=== PATIENT | female | born 1940 | race Caucasian/White ===

== ENCOUNTER 2016-10-29 12:52 | Emergency (ER) | payer MEDICARE, MEDICAID ==
[~2016-10-29] VITALS: Ht 157.5 cm; Wt 77.5 kg
[~2016-10-29 12:52] MED LIST: ASPI-664 PO; CALC667C PO; CHOL2000 PO; DONE10TA7 PO; FER325 PO; FOLI-49 PO; FURO40TA4 PO; HYDR-3498 PO; LISI20TA11 PO; METO-448 PO; MULT-552 PO; PANT40TA4 PO
[2016-10-29 13:05] VITALS: Ht 157.5 cm; Wt 77.5 kg
[2016-10-29 13:52] LABS: BASOPHIL # 0.1 10^3/ul (0.0-0.1); BASOPHILS % 1.5 % (0.0-2.0); EOSINOPHILS # 0.2 10^3/ul (0.0-0.5); EOSINOPHILS % 1.9 % (0.0-7.0); HEMATOCRIT 31.5 % (37.0-47.0); HEMOGLOBIN 10.4 g/dl (12.0-16.0); LYMPHOCYTES # 1.7 10^3/ul (0.8-2.9); MEAN CORPUSCULAR HEMOGLOBIN 29.1 pg (29.0-33.0); MEAN CORPUSCULAR HGB CONC 33.1 g/dl (32.0-37.0); MEAN PLATELET VOLUME 8.4 fl (7.4-10.4); MONOCYTE # 0.7 10^3/ul (0.3-0.9); MONOCYTES % 8.3 % (0.0-11.0); NEUTROPHIL # 5.6 10^3/ul (1.6-7.5); NEUTROPHILS % 68.3 % (39.0-77.0); PLATELET COUNT 249 10^3/UL (140-440); RED BLOOD COUNT 3.58 10^6/ul (4.20-5.40); RED CELL DISTRIBUTION WIDTH 14.3 % (11.5-14.5); UNCORRECTED WBC 8.3 10^3/ul (4.8-10.8); WHITE BLOOD COUNT 8.3 10^3/ul (4.8-10.8)
[2016-10-29 13:59] LABS: ALBUMIN 4.1 g/dl (3.3-4.9)
[2016-10-29 14:00] LABS: POTASSIUM 5.5 mmol/L (3.5-5.1)
[2016-10-29 14:02] LABS: ALBUMIN/GLOBULIN RATIO 1.41; CONDITION 1; CREATININE 11.19 mg/dl (0.44-1.00)
[2016-10-29 14:03] LABS: CALCIUM 7.5 mg/dl (8.4-10.2)
--- NOTE | 2016-10-29 14:18 | RADRPT ---
PROCEDURE: CT Brain without contrast. CLINICAL INDICATION: Dizziness TECHNIQUE: Routine CT scan of the brain was performed on a high resolution multi detector scanner without intravenous contrast. One or more of the following dose reduction techniques were used: Auto mated exposure control; Adjustment of the mA and/or kV according to patient size; Use of iterative r econstruction technique. CTDI = 43 mGy. DLP = 720 mGy-cm. COMPARISON: No prior relevant examinations are available for comparison. FINDINGS: Hemorrhage: No evidence of intracranial hemorrhage. Acute ischemic changes: No evidence of acute ischemic changes. Mass effect/Midline shift: None. Parenchymal volume: Mild central parenchymal volume loss is evident. Ventricular system: Concordant with parenchymal volume. Chronic changes: Mild chronic-appearing microvascular ischemic changes of the supratentorial white m atter. Atherosclerotic calcifications of the cavernous portions of both internal carotid arteries ar e present. Extracranial soft tissues: Unremarkable. Calvarium: No fractures. Advanced degenerative changes of both temporomandibular joints. Paranasal sinuses: Visualized paranasal sinuses are clear. Mastoid air cells: Visualized mastoid air cells are clear. IMPRESSION: No acute intracranial abnormalities. Mild chronic-appearing microvascular ischemic changes of the supratentorial white matter. MRI of the brain may be useful for further evaluation. RPTAT: AADD .Clemente Macias MD, Date Time Electronically viewed and signed by .Clemente Macias MD, MD on 10/29/2016 14:17 .B/
--- NOTE | 2016-10-29 15:09 | RADRPT ---
PROCEDURE: XR Chest. CLINICAL INDICATION: Chest pain TECHNIQUE: Chest AP portable. COMPARISON: 03/02/2015 FINDINGS: Sternotomy and CABG. Right-sided single lead pacemaker. The The mediastinal structures are unremarkable. There is calcification of the thoracic aorta (consiste nt with atherosclerosis). There is mild to moderate cardiomegaly. The pulmonary vascularity is nor mal. The lung chu are unremarkable. No consolidation is identified. The pleural spaces are unr emarkable. There are senescent changes of the axial skeleton. IMPRESSION: Calcification of the thoracic aorta (consistent with atherosclerosis) Mild to moderate cardiomegaly No active intrathoracic disease RPTAT: HGDB .Zion Childress MD, Date Time Electronically viewed and signed by .Zion Childress MD, on 10/29/2016 15:09 .B/
[2016-10-29 15:30] VITALS: TEMP 98.1
[2016-10-29] MEDS ORDERED: NA POLYST SULFON 15 GM/60 ML BTL PO ONE (17:00)
[2016-10-29] MEDS ORDERED: SODI15OR8 PO (18:26)
--- NOTE | 2016-10-29 18:32 | ERD ---
ER Documentation Chief Complaint Date/Time DATE: 10/29/16 TIME: 18:28 Chief Complaint NO DIALYSIS FOR 10 DAYS AND HAS NOT EATEN FOR 4 DAYS. HPI This is a 76-year-old female who is on dialysis but is missed dialysis for the past 10 days. She was at the dialysis center on [address] was told to come here to get it at the hospital. Patient states she has some vague complaints that she has little dizziness and lack of appetite for the past 4 days. She has no chest pain shortness of breath abdominal pain diarrhea weakness fever cough back pain focal neurological complaints. She says she is mainly here because she was told to come here to get dialysis ROS All systems reviewed and are negative except as per history of present illness. Medications Home Meds Active Scripts Sodium Polystyrene Sulfonate* (Kayexalate*) 15 Gm/60 Ml Susp, 30 GM PO each day for 2 Days, ML Prov:CHAYO BRUMFIELD DO 10/29/16 Ferrous Sulfate* (Ferrous Sulfate*) 325 Mg Tabec, 325 MG PO DAILY, #30 TAB Prov:AIDA MORILLO MD 03/05/15 Pantoprazole (Protonix) 40 Mg Tabec, 40 MG PO DAILY@06 for 30 Days Prov:AIDA MORILLO MD 03/05/15 Metoprolol Tartrate* (Lopressor*) 25 Mg Tab, 12.5 MG PO BID for 30 Days, TAB Prov:AIDA MORILLO MD 03/05/15 Reported Medications Hydrocodone Bit-Acetaminophen* ([place]*) 5-325 Mg Tab, 1 TAB PO Q4H Y for PAIN, TAB 03/02/15 Donepezil* (Donepezil*) 10 Mg Tablet, 10 MG PO DAILY, TAB 03/02/15 Aspirin (Low Dose Aspirin) 81 Mg Tablet.dr, 81 MG PO DAILY 03/02/15 Calcium Acetate* (Calcium Acetate*) 667 Mg Capsule, 667 MG PO TID, CAP 03/02/15 Multivitamins* (Once Daily*) 1 Tab Tablet, 1 TAB PO DAILY, TAB 03/02/15 Cholecalciferol* (Vitamin D3*) 2,000 Unit Cap, 2000 UNIT PO DAILY, CAP 03/02/15 Lisinopril* (Lisinopril*) 20 Mg Tablet, 20 MG PO DAILY, TAB 03/02/15 Folic Acid* (Folic Acid*) 1 Mg Tablet, 1 MG PO DAILY, TAB 03/02/15 Furosemide* (Furosemide*) 40 Mg Tablet, 40 MG PO DAILY, TAB 03/02/15 Allergies Allergies: Coded Allergies: No Known Allergy (Unverified , 10/29/16) PMhx/Soc History of Surgery: Yes (CABB X 4YRS AGO) Anesthesia Reaction: No Hx Neurological Disorder: No Hx Respiratory Disorders: No Hx Cardiac Disorders: Yes (HTN) Hx Psychiatric Problems: No Hx Miscellaneous Medical Probl: Yes (ESRD, DM ) Hx Alcohol Use: No Hx Substance Use: No Hx Tobacco Use: No Smoking Status: Never smoker FmHx Family History: No coronary disease Physical Exam Vitals Vital Signs Date Time Temp Pulse Resp B/P Pulse Ox O2 Delivery O2 Flow Rate FiO2 10/29/16 15:30 98.1 65 18 123/60 98 Room Air 10/29/16 13:05 98.1 66 18 174/73 98 Physical Exam Const: Well-developed, well-nourished Head: Atraumatic, normocephalic Eyes: Normal Conjunctiva, PERRLA, EOMI, normal sclera, no nystagmus ENT: Normal External Ears, Nose and Mouth, moist mucus membranes. Neck: Full range of motion. No meningismus, no lymphadenopathy. Resp: Clear to auscultation bilaterally, no wheezing, rhonchi, rales Cardio: Regular rate and rhythm, no murmurs, S1 S2 present Abd: Soft, non tender x 4, non distended. Normal bowel sounds, no guarding or rebound, no pulsitile abdominal masses or bruits Skin: No petechiae or rashes, no ecchymosis , no maculopapular rash Back: No midline or flank tenderness Ext: No cyanosis, or edema, FROM x 4, normal inspection, neurovascularly intact x 4 Neur: Awake and alert, STR 5/5 x 4, sensation intact x 4, no focal findings, cerebellum intact Psych: Normal Mood and Affect Result Diagram: 10/29/16 1336 10/29/16 1336 Results 24 hrs Laboratory Tests Test 10/29/16 13:36 Alanine Aminotransferase (ALT/SGPT) 24IU/L Albumin 4.1g/dl Albumin/Globulin Ratio 1.41 Alkaline Phosphatase 71IU/L Anion Gap 27 Aspartate Amino Transf (AST/SGOT) 23IU/L Basophils # 0.110^3/ul Basophils % 1.5% Blood Urea Nitrogen 90mg/dl Calcium Level 7.5mg/dl Carbon Dioxide Level 25mmol/L Chloride Level 94mmol/L Creatinine 11.19mg/dl Direct Bilirubin 0.00mg/dl Eosinophils # 0.210^3/ul Eosinophils % 1.9% Globulin 2.90g/dl Glucose Level 128mg/dl Hematocrit 31.5% Hemoglobin 10.4g/dl Indirect Bilirubin 0.0mg/dl Lymphocytes # 1.710^3/ul Lymphocytes % 20.0% Mean Corpuscular Hemoglobin 29.1pg Mean Corpuscular Hemoglobin Concent 33.1g/dl Mean Corpuscular Volume 88.0fl Mean Platelet Volume 8.4fl Monocytes # 0.710^3/ul Monocytes % 8.3% Neutrophils # 5.610^3/ul Neutrophils % 68.3% Nucleated Red Blood Cells # 0.010^3/ul Nucleated Red Blood Cells % 0.0/100WBC Platelet Count 56739^3/UL Potassium Level 5.5mmol/L Red Blood Count 3.5810^6/ul Red Cell Distribution Width 14.3% Sodium Level 140mmol/L Total Bilirubin 0.0mg/dl Total Protein 7.0g/dl White Blood Count 8.310^3/ul Current Medications Medications (Trade) Dose Ordered Sig/Lety Route PRN Reason Start Time Stop Time Status Last Admin Dose Admin Sodium Polystyrene Sulfonate (Kayexalate) 30 gm ONCE ONCE PO 10/29/16 17:00 10/29/16 17:01 DC 10/29/16 17:42 Procedures/MDM EKG: Rate/Rhythm: Normal Sinus Rhythm,NL intervals QRS, ST, QT: NORMAL SC, QRS, QT] Impression: NORMAL EKG PROCEDURE: CT Brain without contrast. CLINICAL INDICATION: Dizziness TECHNIQUE: Routine CT scan of the brain was performed on a high resolution multi detector scanner without intravenous contrast. One or more of the following dose reduction techniques were used: Automated exposure control; Adjustment of the mA and/or kV according to patient size; Use of iterative reconstruction technique. CTDI = 43 mGy. DLP = 720 mGy-cm. COMPARISON: No prior relevant examinations are available for comparison. FINDINGS: Hemorrhage: No evidence of intracranial hemorrhage. Acute ischemic changes: No evidence of acute ischemic changes. Mass effect/Midline shift: None. Parenchymal volume: Mild central parenchymal volume loss is evident. Ventricular system: Concordant with parenchymal volume. Chronic changes: Mild chronic-appearing microvascular ischemic changes of the supratentorial white matter. Atherosclerotic calcifications of the cavernous portions of both internal carotid arteries are present. Extracranial soft tissues: Unremarkable. Calvarium: No fractures. Advanced degenerative changes of both temporomandibular joints. Paranasal sinuses: Visualized paranasal sinuses are clear. Mastoid air cells: Visualized mastoid air cells are clear. IMPRESSION: No acute intracranial abnormalities. Mild chronic-appearing microvascular ischemic changes of the supratentorial white matter. MRI of the brain may be useful for further evaluation. RPTAT: AADD .Clemente Macias MD, MD Date Time Electronically viewed and signed by .Clemente Macias MD, MD on 10/29/2016 14:17 .B/ CC: CHAYO BRUMFIELD DO PROCEDURE: XR Chest. CLINICAL INDICATION: Chest pain TECHNIQUE: Chest AP portable. COMPARISON: 03/02/2015 FINDINGS: Sternotomy and CABG. Right-sided single lead pacemaker. The The mediastinal structures are unremarkable. There is calcification of the thoracic aorta (consistent with atherosclerosis). There is mild to moderate cardiomegaly. The pulmonary vascularity is normal. The lung chu are unremarkable. No consolidation is identified. The pleural spaces are unremarkable. There are senescent changes of the axial skeleton. IMPRESSION: Calcification of the thoracic aorta (consistent with atherosclerosis) Mild to moderate cardiomegaly No active intrathoracic disease RPTAT: HGDB .Zion Childress MD, Date Time Electronically viewed and signed by .Zion Childress MD, on 10/29/2016 15:09 .B/ CC: CHAYO BRUMFIELD DO Patient's labs look unremarkable with some mild hyperkalemia. She is given Kayexalate. She has no evidence of pulmonary edema or volume overload she is not hypoxic. 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
[2016-10-29 19:32] VITALS: BP 163/77; PULSE 69; RESP 18
== END 2016-10-29 19:32 | disposition home or self-care (01) ==
LOC: E/R 12:52
DX: N18.6 End stage renal disease (principal); E87.5 Hyperkalemia; I12.0 Hypertensive chronic kidney disease with stage 5 chronic kidney disease or end stage renal disease; E11.9 Type 2 diabetes mellitus without complications; Z79.82 Long term (current) use of aspirin; Z99.2 Dependence on renal dialysis
CPT/HCPCS: 36415; 70450; 71010; 80053; 85025; 93005

== ENCOUNTER 2016-12-31 21:54 | Inpatient (IN) | payer MEDICARE, MEDICAID ==
[~2016-12-31] VITALS: Ht 157.5 cm; Wt 78.0 kg
[~2016-12-31 21:54] MED LIST changes: +SODI15OR8 PO
[2016-12-31] MEDS ORDERED: ASPIRIN 325 MG TAB PO STA (22:13)
[2016-12-31 22:36] LABS: ADD SCAN DIFF NO
[2016-12-31 22:39] LABS: BASOPHIL # 0.1 10^3/ul (0.0-0.1); BASOPHILS % 1.2 % (0.0-2.0); EOSINOPHILS # 0.2 10^3/ul (0.0-0.5); HEMATOCRIT 34.3 % (37.0-47.0); HEMOGLOBIN 11.3 g/dl (12.0-16.0); LYMPHOCYTES # 1.3 10^3/ul (0.8-2.9); LYMPHOCYTES % 17.6 % (15.0-51.0); MEAN CORPUSCULAR HEMOGLOBIN 28.3 pg (29.0-33.0); MEAN CORPUSCULAR HGB CONC 32.9 g/dl (32.0-37.0); MEAN CORPUSCULAR VOLUME 85.8 fl (82.0-101.0); MEAN PLATELET VOLUME 10.2 fl (7.4-10.4); MONOCYTE # 0.6 10^3/ul (0.3-0.9); MONOCYTES % 8.3 % (0.0-11.0); NEUTROPHIL # 5.2 10^3/ul (1.6-7.5); NEUTROPHILS % 69.5 % (39.0-77.0); PLATELET COUNT 207 10^3/UL (140-415); RED CELL DISTRIBUTION WIDTH 14.4 % (11.5-14.5); WHITE BLOOD COUNT 7.6 10^3/ul (4.8-10.8)
[2016-12-31 22:48] LABS: CHLORIDE 93 mmol/L (97-110); POTASSIUM 5.8 mmol/L (3.5-5.1); SODIUM 133 mmol/L (135-144)
[2016-12-31 22:50] LABS: INR 1.28; PROTIME 16.1 Sec (12.2-14.2); PT RATIO 1.3
[2016-12-31 22:51] LABS: ANION GAP 22 (8-16); BLOOD UREA NITROGEN 58 mg/dl (7-20); CALCIUM 7.8 mg/dl (8.4-10.2); CARBON DIOXIDE 24 mmol/L (21-31); CREATININE 8.66 mg/dl (0.44-1.00); GLUCOSE 148 mg/dl (70-220)
[2016-12-31] MEDS ORDERED: NITROGLYCERIN (SL) 0.4 MG TAB SL ONE (23:00)
[2016-12-31 23:01] LABS: B-TYPE NATRIURETIC PEPTIDE 15900 PG/ML (0-125)
[2016-12-31 23:06] LABS: TROPONIN-I < 0.012 ng/ml (0.00-0.12)
[2016-12-31] MEDS ORDERED: morphine 4 MG/ML VIAL IV STA (23:16)
--- NOTE | 2016-12-31 23:25 | RADRPT ---
PROCEDURE: XR Chest. CLINICAL INDICATION: Chest pain. TECHNIQUE: Single frontal view of the chest was obtained COMPARISON: Chest dated 10/29/2016. FINDINGS: Right anterior chest wall single chamber cardiac pacer. Lead tip overlies the expected location of t he right ventricle. Cardiomegaly. Atherosclerotic calcifications in the thoracic aorta. Mild patch y air space disease with small right pleural effusion There is no pneumothorax. IMPRESSION: Cardiomegaly with mild failure and small right pleural effusion. RPTAT: [facility] David Benson Physician Date Time Electronically viewed and signed by David Benson Physician on 12/31/2016 23:24 RS/
[2016-12-31] MEDS ORDERED: NACL 0.9% 3 ML SYG IV SCH (23:30)
[2016-12-31] MEDS ORDERED: morphine 2 MG INJ IV PRN (23:30)
[2016-12-31] MEDS ORDERED: FAMOTIDINE 20 MG INJ IV ONE (23:30)
[2016-12-31] MEDS ORDERED: HYDROCODONE/APAP (5/325) TAB PO PRN (23:30)
[2016-12-31] MEDS ORDERED: ZOLPIDEM 5 MG TAB PO PRN (23:30)
[2016-12-31] MEDS ORDERED: ACETAMINOPHEN 325 MG TAB PO PRN ×2 (23:30)
[2016-12-31] MEDS ORDERED: ONDANSETRON 4 MG INJ IV PRN ×2 (23:30)
[2016-12-31] MEDS ORDERED: NITROGLYCERIN (SL) 0.4 MG TAB SL PRN (23:30)
--- NOTE | 2016-12-31 23:33 | ERA ---
ER Documentation Chief Complaint Date/Time DATE: 12/31/16 TIME: 23:25 Chief Complaint CP with Dann cardia on EKG HPI This 76-year-old female presents the ER with left-sided chest pain just below the left breast described as a pressure-like pain. It is associated with shortness of breath. She has had this pain for the last few hours. She does have a history of hypertension, diabetes, coronary artery disease. She denies any fever chills or cough currently. Reviewed her EMR which shows that she had a negative Lexiscan 2 years ago. She does have an implantable ICD for severe cardiomyopathy. ROS All systems reviewed and are negative except as per history of present illness. Medications Home Meds Active Scripts Sodium Polystyrene Sulfonate* (Kayexalate*) 15 Gm/60 Ml Susp, 30 GM PO each day for 2 Days, ML Prov:CHAYO BRUMFIELD DO 10/29/16 Ferrous Sulfate* (Ferrous Sulfate*) 325 Mg Tabec, 325 MG PO DAILY, #30 TAB Prov:AIDA BRICENO MD 03/05/15 Pantoprazole (Protonix) 40 Mg Tabec, 40 MG PO DAILY@06 for 30 Days Prov:AIDA BRICNEO MD 03/05/15 Metoprolol Tartrate* (Lopressor*) 25 Mg Tab, 12.5 MG PO BID for 30 Days, TAB Prov:AIDA BRICENO MD 03/05/15 Reported Medications Hydrocodone Bit-Acetaminophen* ([place]*) 5-325 Mg Tab, 1 TAB PO Q4H Y for PAIN, TAB 03/02/15 Donepezil* (Donepezil*) 10 Mg Tablet, 10 MG PO DAILY, TAB 03/02/15 Aspirin (Low Dose Aspirin) 81 Mg Tablet.dr, 81 MG PO DAILY 03/02/15 Calcium Acetate* (Calcium Acetate*) 667 Mg Capsule, 667 MG PO TID, CAP 03/02/15 Multivitamins* (Once Daily*) 1 Tab Tablet, 1 TAB PO DAILY, TAB 03/02/15 Cholecalciferol* (Vitamin D3*) 2,000 Unit Cap, 2000 UNIT PO DAILY, CAP 03/02/15 Lisinopril* (Lisinopril*) 20 Mg Tablet, 20 MG PO DAILY, TAB 03/02/15 Folic Acid* (Folic Acid*) 1 Mg Tablet, 1 MG PO DAILY, TAB 03/02/15 Furosemide* (Furosemide*) 40 Mg Tablet, 40 MG PO DAILY, TAB 03/02/15 Allergies Allergies: Coded Allergies: No Known Allergy (Unverified , 10/29/16) PMhx/Soc History of Surgery: Yes (CABB X 4YRS AGO) Anesthesia Reaction: No Hx Neurological Disorder: No Hx Respiratory Disorders: No Hx Cardiac Disorders: Yes (HTN) Hx Psychiatric Problems: No Hx Miscellaneous Medical Probl: Yes (ESRD, DM ) Hx Alcohol Use: No Hx Substance Use: No Hx Tobacco Use: No Smoking Status: Never smoker Physical Exam Vitals Vital Signs Date Time Temp Pulse Resp B/P Pulse Ox O2 Delivery O2 Flow Rate FiO2 12/31/16 22:34 Nasal Cannula 2 12/31/16 22:08 97.9 45 24 102/55 97 Physical Exam Const: [] No distress Head: Atraumatic Eyes: Normal Conjunctiva ENT: Normal External Ears, Nose and Mouth. Neck: Full range of motion..~ No meningismus. Resp: Decreased bibasilar breath sounds Cardio: Irregularly irregular bradycardia, no murmurs Abd: Soft, non tender, non distended. Normal bowel sounds Skin: No petechiae or rashes Back: No midline or flank tenderness Ext: No cyanosis, bilateral mild ankle edema. Neur: Awake and alert and oriented 3, no focal deficits Psych: Normal Mood and Affect Result Diagram: 12/31/16222412/31/162224 Results 24 hrs Laboratory Tests Test 12/31/16 22:25 Activated Partial Thromboplast Time 30.0Sec Anion Gap 22 B-Type Natriuretic Peptide 30966JM/ML Basophils # 0.110^3/ul Basophils % 1.2% Blood Urea Nitrogen 58mg/dl Calcium Level 7.8mg/dl Carbon Dioxide Level 24mmol/L Chloride Level 93mmol/L Creatinine 8.66mg/dl Eosinophils # 0.210^3/ul Eosinophils % 3.0% Glucose Level 148mg/dl Hematocrit 34.3% Hemoglobin 11.3g/dl INR International Normalized Ratio 1.28 Lymphocytes # 1.310^3/ul Lymphocytes % 17.6% Mean Corpuscular Hemoglobin 28.3pg Mean Corpuscular Hemoglobin Concent 32.9g/dl Mean Corpuscular Volume 85.8fl Mean Platelet Volume 10.2fl Monocytes # 0.610^3/ul Monocytes % 8.3% Neutrophils # 5.210^3/ul Neutrophils % 69.5% Nucleated Red Blood Cells # 0.010^3/ul Nucleated Red Blood Cells % 0.0/100WBC Platelet Count 41596^3/UL Potassium Level 5.8mmol/L Prothrombin Time 16.1Sec Prothrombin Time Ratio 1.3 Red Blood Count 4.0010^6/ul Red Cell Distribution Width 14.4% Sodium Level 133mmol/L Troponin I < 0.012ng/ml White Blood Count 7.610^3/ul Current Medications Medications (Trade) Dose Ordered Sig/Lety Route PRN Reason Start Time Stop Time Status Last Admin Dose Admin Aspirin (Aspirin) 325 mg ONCE STAT PO 12/31/16 22:13 12/31/16 22:14 DC 12/31/16 22:38 Nitroglycerin (Nitroglycerin (Sl Tab) 0.4 Mg) 1 tab ONCE ONCE SL 12/31/16 23:00 12/31/16 23:01 DC 12/31/16 22:42 Morphine Sulfate (morphine) 4 mg ONCE STAT IV 12/31/16 23:16 12/31/16 23:18 DC Famotidine (Pepcid Iv) 20 mg ONCE ONCE IV 12/31/16 23:30 12/31/16 23:31 12/31/16 23:23 Procedures/MDM 76-year-old female with chest pain, fluid overload, hyperkalemia. She was treated with an aspirin and then given nitroglycerin which only provided minimal relief for chest pain. They gave her 4 mg of morphine and 20 mg of Pepcid IV. Chest pain was remitted at that point. She had two EKGs with initial EKG showing slight T-wave inversions in the lateral leads. Repeat EKG did not show this. Troponin is negative. Do believe the patient is to be admitted for further cardiac testing and monitoring. She was given Kayexalate 30 mg p.o. as well for her elevated potassium level. Spoke with Dr. Briceno who will be admitting the patient to telemetry. EKG interpretation #1: Atrial fibrillation rate of 47, normal axis, slight T- wave inversions in lateral leads suspicious for possible ischemia, no concerning intervals. EKG interpretation #2: Atrial fibrillation versus junctional rhythm rate of 45, interval resolution of T-wave inversions in lateral leads, no other ST or T- wave changes concerning for acute ischemia, normal axis. Chest x-ray interpretation: Possible right pleural effusion visible, no obvious infiltrate, engorgement of the pulmonary vasculature, no pneumothorax, no fractures block cleaner interpretation: Persistent irregular bradycardia without P waves. No other arrhythmias Departure Diagnosis: Primary Impression: Chest pain Additional Impression: Hyperkalemia Condition: Stable SANDRA HOUSE DO Dec 31, 2016 23:33
[2017-01-01] VITALS (21 sets, daily range): BP systolic 139–198; BP diastolic 66–88; PULSE 49–83; RESP 16–20; Ht 157.5 cm; Wt 78.0 kg
[2017-01-01 05:55] LABS: ADD SCAN DIFF NO
[2017-01-01] MEDS: PANTOPRAZOLE (EC) 40 MG TAB PO SCH (06:00)
[2017-01-01 06:03] LABS: BASOPHIL # 0.1 10^3/ul (0.0-0.1); BASOPHILS % 1.3 % (0.0-2.0); EOSINOPHILS # 0.2 10^3/ul (0.0-0.5); HEMOGLOBIN 10.8 g/dl (12.0-16.0); LYMPHOCYTES # 1.4 10^3/ul (0.8-2.9); LYMPHOCYTES % 14.5 % (15.0-51.0); MEAN CORPUSCULAR HEMOGLOBIN 27.9 pg (29.0-33.0); MEAN CORPUSCULAR HGB CONC 32.7 g/dl (32.0-37.0); MEAN CORPUSCULAR VOLUME 85.3 fl (82.0-101.0); MEAN PLATELET VOLUME 10.4 fl (7.4-10.4); MONOCYTE # 0.6 10^3/ul (0.3-0.9); MONOCYTES % 6.4 % (0.0-11.0); NEUTROPHILS % 75.4 % (39.0-77.0); PLATELET COUNT 234 10^3/UL (140-415); RED BLOOD COUNT 3.87 10^6/ul (4.20-5.40); RED CELL DISTRIBUTION WIDTH 14.4 % (11.5-14.5); WHITE BLOOD COUNT 9.3 10^3/ul (4.8-10.8)
[2017-01-01 06:16] LABS: ALBUMIN 3.5 g/dl (3.3-4.9)
[2017-01-01 06:19] LABS: ALBUMIN/GLOBULIN RATIO 1.4; CREATININE 9.29 mg/dl (0.44-1.00)
[2017-01-01 06:20] LABS: CALCIUM 8.2 mg/dl (8.4-10.2); CHOL/HDL RATIO 2.3 RATIO
[2017-01-01 06:27] LABS: CK-MB 0.31 ng/ml (0.0-2.4); CREATINE KINASE 100 IU/L (23-200)
[2017-01-01 06:34] LABS: POTASSIUM 7.1 mmol/L (3.5-5.1)
[2017-01-01 06:50] LABS: TROPONIN-I < 0.012 ng/ml (0.00-0.12)
[2017-01-01] MEDS ORDERED: NA POLYST SULFON 15 GM/60 ML BTL PO ONE ×2 (07:00)
[2017-01-01] MEDS ORDERED: INSULIN ASPART [NOVOLOG] 3 ML PEN IV ONE (07:00)
[2017-01-01] MEDS ORDERED: DEXTROSE 50% 50 ML SYRINGE IV ONE (07:00)
[2017-01-01 07:14] LABS: THYROID STIMULATING HORMONE 0.967 MIU/L (0.465-4.680)
[2017-01-01] MEDS ORDERED: GLUCAGON 1 MG INJ IM PRN (08:00)
[2017-01-01] MEDS ORDERED: DEXTROSE 50% 50 ML SYRINGE IV PRN ×2 (08:00)
[2017-01-01] MEDS ORDERED: GLUCOSE GEL 15 GRAM TUBE BUCCAL PRN (08:00)
[2017-01-01] MEDS ORDERED: GLUCOSE GEL 15 GRAM TUBE PO PRN ×2 (08:00)
[2017-01-01] MEDS ORDERED: INSULIN REGULAR, HUMAN 100 UNIT/1 ML 3ML VIAL IV ONE (08:00)
[2017-01-01] MEDS: INSULIN ASPART [NOVOLOG] 3 ML PEN SC SCH ×4 (09:24→21:51)
[2017-01-01] MEDS: CALCIUM ACETATE 667 MG CAP PO SCH ×3 (09:25→21:45)
[2017-01-01] MEDS: MULTIVITAMINS THERAPEUTIC TAB PO SCH (09:26)
[2017-01-01] MEDS: FOLIC ACID 1 MG TAB PO SCH (09:26)
[2017-01-01] MEDS: DONEPEZIL 10 MG TAB PO SCH (09:26)
[2017-01-01] MEDS: ASPIRIN 81 MG TAB PO SCH (09:26)
[2017-01-01] MEDS: CHOLECALCIFEROL 2,000 UNIT CAP PO SCH (09:26)
[2017-01-01] MEDS: METOPROLOL 25 MG TAB PO SCH ×2 (09:27→21:45)
[2017-01-01] MEDS: HEPARIN 5,000 UNIT/0.5 ML SYG SC SCH ×2 (09:33→21:47)
[2017-01-01 12:11] LABS: CREATINE KINASE 111 IU/L (23-200)
[2017-01-01 12:21] LABS: CK-MB 0.43 ng/ml (0.0-2.4)
[2017-01-01 13:30] LABS: TROPONIN-I < 0.012 ng/ml (0.00-0.12)
--- NOTE | 2017-01-01 14:38 | QN ---
Documentation Comment [id number] DELILAH MOONEY MD Jan 01, 2017 14:37
--- NOTE | 2017-01-01 17:47 | RADRPT ---
PROCEDURE: Complete abdominal and retroperitoneum ultrasound. CLINICAL INDICATION: Abdominal pain TECHNIQUE: Castañeda scale and color doppler ultrasound images of the abdomen and retroperitoneum. COMPARISON: None FINDINGS: Pancreas: Visualized portions appear of normal echogenicity, no focal lesions. Liver: Morphology: Mildly enlarged measuring 17.6 cm. No definite evidence of contour nodularity. Echogenicity: Normal. Focal lesions: None. Main portal vein: Patent with hepatopetal flow. Biliary System: Mild gallbladder wall thickening is present which is nonspecific in the presence of ascites. No gallstones seen. No intrahepatic biliary dilatation. Common bile duct diameter: 5.5 mm Kidneys: Right length: 7.3 cm. Mild - moderate right cortical thinning measuring 8 - 9 mm. Left length: 8.7 cm. Mild - moderate left cortical thinning measuring 8 - 9 mm. Normal echogenicity. No hydronephrosis. No renal calculi. No focal renal lesions. Spleen: Normal in size, no focal lesions. Mild - moderate perihepatic ascites is present. Bilateral pleural effusions are partially visualized . IMPRESSION: Liver is mildly enlarged but without other abnormalities. There is no evidence of contour nodularit y or coarsening of the hepatic echotexture to suggest sonographic changes of cirrhosis. Mild - moderate perihepatic ascites and bilateral pleural effusions are present. Mild gallbladder wall thickening is nonspecific in the presence of ascites. No gallstones are seen. If clinical concern for cholecystitis HIDA scan can be obtained for further evaluation. Mild atrophic changes of both kidneys without hydronephrosis. RPTAT: AADD .Clemente Macias MD, Date Time Electronically viewed and signed by .Clemente Macias MD, on 01/01/2017 17:46 .B/
--- NOTE | 2017-01-01 17:53 | HP ---
DATE OF ADMISSION: 12/31/2016 REASON FOR ADMISSION: 1. Chest pain. 2. Hyperkalemia. 3. Congestive heart failure exacerbation. 4. Patient missed her dialysis recently. HISTORY OF PRESENT ILLNESS: The patient is an unfortunate 76-year-old female known to me f rom previous hospitalization back in February of 2015. The patient has a history of end-stage renal dise ase, on dialysis twice a day on Monday and Monday. Also, history of hypertension, cardiomyopathy, c ongestive heart failure, status post AICD placement, diabetes mellitus, depression, diastolic cardio vascular disease, dyslipidemia, status post open heart surgery, CABG, 4-vessel disease in 2012, who stated that she did not feel so well on Monday when she had diarrhea and abdominal pain, so she did not go to her dialysis session. Now presented to the ER complaining of shortness of breath, chest d iscomfort. In the ER, patient was evaluated. Potassium was elevated at 5.8. BUN and creatinine of 58/8.66 BNP was high at 15,900. Troponin was negative. It was decided to admit the patient for fu rther care. The patient is likely in slightly fluid overload state. The patient missed her dialysi s, likely contributed to her chest pain. The patient follows up with Dr. Fuller on an outpatient b asis, and she actually is planned to undergo multiple diagnostic testing in the near future, per pat iealek. The patient also states that in the past month she has been experiencing intermittent episode s of midepigastric pain and sometimes she has a problem swallowing, she says food gets stuck and she has discomfort in the esophagus and the mid chest. Otherwise, currently feeling better. She is cu rrently chest pain free. She states she wants to go home, and she prefers all her tests to be done on an outpatient basis. The patient is admitted for further care. She denies any fever or chills. Denies any weakness or numbness. PAST MEDICAL HISTORY: Includes end-stage renal disease, cardiomyopathy, status post AICD placement, status post CABG, hypertension, dyslipidemia, previous history of diabetes mellitus, anxiety disord er. PAST SURGICAL HISTORY: Appendectomy, multiple AV fistulas, surgery in the left upper extremity, Damir nton catheter. SOCIAL HISTORY: She stopped tobacco, she stopped 30 years ago, but smoked heavily. Alcohol abuse: Stopped 30 years ago, but ank a lot. IVDA: Denies. FAMILY HISTORY: Mother from heart related problems. Father: Multiorgan failure in the hospit al. ALLERGIES: NO KNOWN DRUG ALLERGIES. SHE IS ALLERGIC TO TAPE. Dialysis every Monday and Monday. MEDICATIONS: Include the followin. Aricept 10 mg daily. 2. Ferrous sulfate 325 mg daily. 3. Lisinopril mg daily. 4. Metoprolol 12.5 b.i.d. 5. Aspirin 81 mg daily. 6. [place] 5/325 q.4 p.r.n. 7. Calcium acetate 667 mg t.i.d. 8. Lasix 40 mg daily. 9. Kayexalate 30 mg every other day. 10. Protonix 40 mg daily. 11. Vitamin D3 2000 daily. 12. Folic acid 1 mg daily. 13. Multivitamin 1 tablet daily. PHYSICAL EXAMINATION: VITAL SIGNS: Temperature is 97.4, afebrile. Pulse 77, respirations 18, blood pressure 139/68, satu ration is 95% on room air. GENERAL: No acute distress. The patient is pale. HEENT: Dry mucous membranes. CARDIOVASCULAR: S1 and S2. LUNGS: Decreased bilaterally. ABDOMEN: Soft, nontender. EXTREMITIES: +1 edema of the lower extremities, trace edema upper extremities. LABORATORY DATA: White count is 9.3, hemoglobin 10.8, hematocrit 33, platelet count 234,000, neutro phils 75%, lymphocytes 16%. Chemistry: Sodium is 135, potassium 7.1, chloride 96, bicarbonate 20, BUN is 62, creatinine 9.29, glucose of 145. Hemoglobin A1c 7.3. Last glucose level 127. Serial tr oponin is negative. B12 greater than 1000. Cholesterol is 90, LDL is 29. Triglycerides are 108. TSH is 0.967. INR is 1.28. IMAGING TESTS: Chest x-ray shows cardiomegaly with mild failure and small right pleural effusion. EKG: One EKG shows junctional rhythm, septal infarct, age undetermined. ST-T abnormality, consider lateral ischemia. Repeat EKG shows questionable atrial fibrillation with slow ventricular rate, septal infarct, age un determined, at 47 beats per minute. ASSESSMENT AND PLAN: This is a 76-year-old cholestatic female with history of coronary artery disea se, diabetes mellitus, hypertension, and end-stage renal disease, who presents with chest pain. She missed her dialysis. Also with congestive heart failure exacerbation and severe hyperkalemia. 1. Respiratory. The patient with shortness of breath and chest pain, likely from fluid overload st ate. The patient is currently being dialyzed for fluid removal. O2 support will be provided. 2. Cardiovascular. The patient with congestive heart failure exacerbation. Again, fluid removal w ith dialysis to be done today. Patient may need another set of dialysis tomorrow. 3. The patient to continue cardiac medication, including aspirin, heparin for deep venous thrombosi s prophylaxis, Lopressor. PRN blood pressure medications will be provided per nursing request. Car diology will be consulted and we will repeat a 2D echocardiogram to evaluate current ejection fracti on. Serial troponins will be obtained to rule out acute coronary syndrome. So far actually all tro ponins are negative. Again, likely chest pain is secondary to fluid overload state. 4. Epigastric pain. Will definitely need to see a gastroenterology specialist and possibly an EGD, as patient says she has problems swallowing. The patient will be placed on Protonix for now. If p atient will allow, we will consult gastroenterology, otherwise outpatient followup. May consider a baseline ultrasound of the abdomen to rule out any other pathology. 5. Old records were reviewed. Carotid ultrasound done in 02/2015, at that time shows mild atherosc lerotic plaque without evidence of significant stenosis. In addition, a stress test at that time sh owed resting myocardial perfusion images with no evidence of perfusion defects. EF at that time was 63%. Again, all records were reviewed. 6. Anemia, likely anemia of chronic disease secondary to chronic kidney disease. 7. Hyperkalemia and end-stage renal disease. The patient is being dialyzed today, status post [place]idhi xalate, insulin, and D50. Appreciate Dr. Rivas's involvement. Monitor all electrolytes tomorrow. 8. Compliance with dialysis encouraged. 9. Diabetes mellitus. Check Accu-Chek q.a.c. and at nighttime. May discharge on , as hemoglo bin A1c is 7.3. We will follow. Dictated By: AIDA PARRY/KIM Conf#: [id number] DID#: [id number]
--- NOTE | 2017-01-01 18:43 | CONS ---
DATE OF ADMISSION: 12/31/2016 DATE OF CONSULTATION: TYPE OF CONSULTATION: Nephrology consultation. Thank you, Dr. Bradley Briceno, for kindly asking me to see this patient in nephrology consultation. HISTORY OF PRESENT ILLNESS: The patient is well known to me with history of ESRD, history of cardiomyopathy, history of AICD device, history of coronary artery bypass graft, history of anemia, history of diabetes mellitus, history of congestive heart failure history of hypertension, history of noncompliance with regimen, presented with short of breath and has atrial fibrillation with bradycardia. The patient also has hyperkalemia, is getting dialysis, and is being admitted for further management. PAST MEDICAL HISTORY: Please review the old chart, is positive for ESRD, hypertension, CHF, CABG, cardiac arrhythmia, and _ with fistula placement. ALLERGY HISTORY: NEGATIVE. FAMILY HISTORY: Negative. SOCIAL HISTORY: Negative. MEDICATION HISTORY: The patient is on: 1. [place]. 2. Aspirin. 3. PhosLo. 4. Vitamin D3. 5. Aricept. 6. asa 7. Folic acid. 8. Lasix. 9. Lisinopril. 10. Metoprolol. 11. Multiple vitamin. 12. Protonix. 13. Carafate. REVIEW OF SYSTEMS: HEENT: Unremarkable. RESPIRATORY: Short of breath. CARDIOVASCULAR: No chest pain, no palpitation. ABDOMEN: Unremarkable. EXTREMITIES: Unremarkable. PHYSICAL EXAMINATION: GENERAL: The patient is awake and alert. VITAL SIGNS: Pulse 72, blood pressure 139/68. HEAD: Atraumatic, normocephalic. Pupils equal, reactive to light. NECK: Supple. No JVD. LUNGS: Clear. CARDIOVASCULAR: S1, S2 is normal. Irregular. ABDOMEN: Soft, nontender. Bowel sounds positive. No palpable mass or hepatosplenomegaly. No guarding, rebound tenderness. EXTREMITIES: There is no cyanosis, clubbing, or edema. CENTRAL NERVOUS SYSTEM: The patient is awake, alert with no focal deficit. LABORATORY DATA: Hematocrit 33, sodium 135, potassium 7.1, BUN 62, creatinine 9.29, B12 more than 1000. IMPRESSION: 1. The patient has hyperkalemia. 2. End-stage renal disease. 3. The patient has congestive heart failure. 4. Hypertension. 5. Anemia. 6. Atrial fibrillation. 7. Noncompliance with dialysis regimen. PLAN: To continue hemodialysis, renal diet. Laboratory data will be followed. Other recommendations per Dr. Briceno. Thank you, Dr. Bradley Briceno, for kindly asking me to see this patient in nephrology consultation. Dictated By: DELILAH MOONEY MD BS/NTS Conf#: [id number] DID#: [id number] MTDD
[2017-01-02] VITALS (17 sets, daily range): BP systolic 123–208; BP diastolic 56–80; PULSE 63–75; RESP 18–20
[2017-01-02] MEDS ORDERED: ACCU-CHEK XX SCH (02:00)
[2017-01-02] MEDS: PANTOPRAZOLE (EC) 40 MG TAB PO SCH (06:00)
[2017-01-02 07:25] LABS: ADD SCAN DIFF NO
[2017-01-02 07:30] LABS: BASOPHIL # 0.1 10^3/ul (0.0-0.1); BASOPHILS % 0.9 % (0.0-2.0); EOSINOPHILS # 0.3 10^3/ul (0.0-0.5); EOSINOPHILS % 4.3 % (0.0-7.0); HEMATOCRIT 32.3 % (37.0-47.0); HEMOGLOBIN 10.6 g/dl (12.0-16.0); LYMPHOCYTES # 1.8 10^3/ul (0.8-2.9); LYMPHOCYTES % 23.3 % (15.0-51.0); MEAN CORPUSCULAR HEMOGLOBIN 28.3 pg (29.0-33.0); MEAN CORPUSCULAR HGB CONC 32.8 g/dl (32.0-37.0); MEAN CORPUSCULAR VOLUME 86.1 fl (82.0-101.0); MEAN PLATELET VOLUME 10.4 fl (7.4-10.4); MONOCYTE # 0.8 10^3/ul (0.3-0.9); MONOCYTES % 10.2 % (0.0-11.0); NEUTROPHIL # 4.7 10^3/ul (1.6-7.5); PLATELET COUNT 199 10^3/UL (140-415); RED BLOOD COUNT 3.75 10^6/ul (4.20-5.40); RED CELL DISTRIBUTION WIDTH 14.5 % (11.5-14.5); WHITE BLOOD COUNT 7.6 10^3/ul (4.8-10.8)
--- NOTE | 2017-01-02 07:34 | CONS ---
DATE OF ADMISSION: 12/31/2016 DATE OF CONSULTATION: 01/01/2017 TYPE OF CONSULTATION: Cardiology REFERRING PHYSICIAN: Dr. Briceno. REASON FOR EVALUATION: Chest pain, precordial. HISTORY OF PRESENT ILLNESS: Ms. Jean-Baptiste is a 76-year-old woman with history of hypertension, dysl ipidemia, history of cardiomyopathy, heart failure, prior history of CABG with 4 vessels in 2002, an d stress test 2 years ago, who comes to the hospital now for evaluation of chest pain. The patient said she had chest pain during dialysis, and now she is coming in for evaluation of her condition. It does not appear that she ruled in for acute myocardial infarction with her troponins negative; ho wever, she does have a history of coronary artery disease with history of moderate cardiac problems, and I think as such it would be reasonable to stratify the patient with a stress test. She says jonn oates has not had a stress test for several years. We will facilitate stress test for tomorrow. PAST MEDICAL HISTORY: 1. Hypertension. 2. Dyslipidemia. 3. End-stage renal disease. 4. Hemodialysis. 5. Cardiomyopathy. 6. History of ICD. 7. History of CABG. 8. Four-vessel disease in 2012. 9. Dyslipidemia. 10. Diabetes. 11. Anxiety. PAST SURGICAL HISTORY: Appendectomy, multiple history of surgeries on her left upper extremity, Damir nton catheter, ICD placement. SOCIAL HISTORY: The patient with history of tobacco use, but quit a long time ago. Does not drink, does not use any drugs. FAMILY HISTORY: Negative for sudden cardiac . ALLERGIES: NO KNOWN ALLERGIES EXCEPT FOR TAPE. MEDICATIONS: The patient is on: 1. Aricept 10 mg daily. 2. Iron sulfate 325 mg daily. 3. Lisinopril mg daily 4. Metoprolol 12.5 b.i.d. 5. Aspirin 81 mg daily. 6. [place]. 7. Calcium. 8. Lasix. 9. Kayexalate 10. Protonix. 11. Vitamin D. 12. Multivitamins. REVIEW OF SYSTEMS: CONSTITUTIONAL: No fevers, no chills. Chest pain as described. HEENT: No changes in vision or hearing. CARDIAC: . RESPIRATORY: No shortness of breath. GASTROINTESTINAL: No nausea, vomiting, diarrhea, constipation. GENITOURINARY: No dysuria or hematuria. Anemia of chronic disease. PSYCHIATRIC: No known history of psychiatric illness. PHYSICAL EXAMINATION: VITAL SIGNS: Temperature is 98.2, heart rate blood pressure 161/72. GENERAL: She is a well-nourished woman in no acute distress, alert and oriented x3, aware of her co ndition, speaking [place]an. HEENT: Head is normocephalic, atraumatic. Eyes anicteric. NECK: Supple. JVD 7 to 8 cm. There is no lymphadenopathy, no thyromegaly. HEART: Regular, with soft II/ systolic murmur at the apex. PMI is . There is no S3 or S4. LUNGS: Coarse at the bases. ABDOMEN: Distended, bowel sounds are present. There is no hepatosplenomegaly. GENITOURINARY: Intact. EXTREMITIES: No clubbing or cyanosis, trace edema. SKIN: Shows AV fistula on the left side. ECG read by me showed that the patient is in atrial fibrillation at the rate of 47. I do not apprec iate any pacing at this point. ASSESSMENT AND PLAN: 1. Chest pain. The patient has history of chest pain. We will continue to monitor the patient sharon sely. She will have a re-stratification with stress test, ICD versus pacemaker. Patient has a fair ly unusually placed ICD; it is on the right side. I think it would be reasonable to check the pacem jones now, given the heart rate is 47 and she is not paced so the backup rate might be set at less th an 47. 2. Shortness of breath, multifactorial. Continue CHF therapy. I will follow up with a 2-D echo. 3. End-stage renal disease. Continue hemodialysis per primary team. 4. History of coronary artery bypass graft. Patient history of CABG. We will risk stratify with a stress test now. I would like to thank Dr. Briceno for referring this patient for my evaluation. Dictated By: JOLEEN JORGE MD ML/NTS Conf#: [id number] DID#: [id number]
[2017-01-02 07:43] LABS: POTASSIUM 3.9 mmol/L (3.5-5.1)
[2017-01-02 07:46] LABS: CREATININE 5.55 mg/dl (0.44-1.00); MAGNESIUM 1.8 mg/dl (1.7-2.5); PHOSPHORUS 3.9 mg/dl (2.5-4.9)
[2017-01-02 07:47] LABS: CALCIUM 8.1 mg/dl (8.4-10.2)
[2017-01-02] MEDS: INSULIN ASPART [NOVOLOG] 3 ML PEN SC SCH ×3 (09:04→18:29)
[2017-01-02] MEDS: DONEPEZIL 10 MG TAB PO SCH (09:05)
[2017-01-02] MEDS: CHOLECALCIFEROL 2,000 UNIT CAP PO SCH (09:05)
[2017-01-02] MEDS: ASPIRIN 81 MG TAB PO SCH (09:05)
[2017-01-02] MEDS: CALCIUM ACETATE 667 MG CAP PO SCH ×2 (09:05→13:26)
[2017-01-02] MEDS: FOLIC ACID 1 MG TAB PO SCH (09:05)
[2017-01-02] MEDS: METOPROLOL 25 MG TAB PO SCH (09:06)
[2017-01-02] MEDS: MULTIVITAMINS THERAPEUTIC TAB PO SCH (09:09)
[2017-01-02] MEDS: HEPARIN 5,000 UNIT/0.5 ML SYG SC SCH (09:11)
[2017-01-02] MEDS ORDERED: REGADENOSON 0.4 MG/5 ML SYG ONE (11:38)
--- NOTE | 2017-01-02 12:22 | CONS ---
Date/Time of Note Date/Time of Note DATE: 01/02/17 TIME: 12:19 Assessment/Plan Assessment/Plan Chief Complaint/Hosp Course Imp: 1.Chest pain-negative trop x 3 2.HTN 3.cad s/p cabg 2012 4. H/O ICD Recc: -Tele -serial ecg's -Continue BB -Lexiscan stress test today Problems: Consultation Date/Type/Reason Admit Date/Time Dec 31, 2016 at 23:25 Initial Consult Date 01/01/2017 Type of Consultation: Cardiology Reason for Consultation Chest pain Referring Provider: SANDOVAL MORILLO MD Exam/Review of Systems Vital Signs Vitals Vital Signs Date Time Temp Pulse Resp B/P Pulse Ox O2 Delivery O2 Flow Rate FiO2 01/02/17 08:04 98.2 74 20 123/56 97 01/01/17 01:03 2.0 98 01/01/17 00:38 Nasal Cannula Intake and Output 01/01/17 01/01/17 01/02/17 15:00 23:00 07:00 Intake Total 300 ml 960 ml 750 ml Output Total 2300 ml 850 ml Balance -2000 ml 960 ml -100 ml Exam Review of Systems: CONSTITUTIONAL: No fevers, chills. PULMONARY: No sob CARDIOVASCULAR: intermittent chest pain GASTROINTESTINAL: No nausea/vomiting. GENITOURINARY: No hematuria/dysuria. MUSCULOSKELETAL: No myagias/arthalgias. PSYCHIATRIC: The patient denies depression. NEUROLOGIC: No weakness Constitutional: alert, oriented Psych: no complaints Eyes: nl conjunctiva ENMT: mucosa pink and moist Neck: jvd (8 cm water), supple Respiratory: clear to auscultation Cardiovascular: regular rate and rhythm Gastrointestinal: non-tender, soft Musculoskeletal: muscle tone (normal) Extremities: edema (none) Results Result Diagram: 01/02/17 0549 01/02/17 0549 Results 24 hrs Laboratory Tests Test 01/01/17 17:12 01/01/17 18:00 01/01/17 20:53 01/02/17 01:51 Bedside Glucose 205 262 H 121 Stool Occult Blood NEGATIVE Test 01/02/17 05:49 01/02/17 07:41 Anion Gap 17 #H Basophils # 0.1 Basophils % 0.9 Blood Urea Nitrogen 25 #H Calcium Level 8.1 L Carbon Dioxide Level 31 # Chloride Level 96 L Creatinine 5.55 #H Eosinophils # 0.3 Eosinophils % 4.3 Glucose Level 112 Hematocrit 32.3 L Hemoglobin 10.6 L Lymphocytes # 1.8 Lymphocytes % 23.3 Magnesium Level 1.8 Mean Corpuscular Hemoglobin 28.3 L Mean Corpuscular Hemoglobin Concent 32.8 Mean Corpuscular Volume 86.1 Mean Platelet Volume 10.4 Monocytes # 0.8 Monocytes % 10.2 Neutrophils # 4.7 Neutrophils % 61.0 Nucleated Red Blood Cells # 0.0 Nucleated Red Blood Cells % 0.0 Phosphorus Level 3.9 Platelet Count 199 Potassium Level 3.9 # Red Blood Count 3.75 L Red Cell Distribution Width 14.5 Sodium Level 140 White Blood Count 7.6 Bedside Glucose 122 Medications Medications Current Medications Ondansetron HCl (Zofran Inj) 4 mg Q6H PRN IV NAUSEA AND/OR VOMITING; Start at 23:30 Aspirin (Aspirin) 81 mg DAILY PO Last administered on 01/02/17 09:05; Admin Dose 81 MG; Start 01/01/17 at 09:00 Nitroglycerin (Nitroglycerin (Sl Tab) 0.4 Mg) 1 tab Q5M PRN SL CHEST PAIN; Start 12/31/16 at 23:30 Acetaminophen (Tylenol Tab) 650 mg Q6H PRN PO PAIN LEVEL 1-3 OR FEVER; Start at 23:30 Acetaminophen/ Hydrocodone Bitart ([place] (5/325)) 1 tab Q6H PRN PO PAIN LEVEL 4 -6; Start 12/31/16 at 23:30 Morphine Sulfate (morphine) 2 mg Q4H PRN IV PAIN LEVEL 7-10; Start 12/31/16 at 23:30 Zolpidem Tartrate (Ambien) 5 mg QHS PRN PO INSOMNIA Last administered on 22:04; Admin Dose 5 MG; Start 12/31/16 at 23:30 Pantoprazole (Protonix Tab) 40 mg DAILY@06 PO ; Start 01/01/17 at 06:00 Heparin Sodium (Porcine) (Heparin (5000 Units/0.5 ml)) 5,000 unit Q12 SC Last administered on 01/02/17 09:11; Admin Dose 5,000 UNIT; Start 01/01/17 at 09:00 Calcium Acetate (Phoslo) 667 mg TID PO Last administered on 01/02/17 09:05; Admin Dose 667 MG; Start 01/01/17 at 09:00 Cholecalciferol (Vitamin D) 2,000 unit DAILY PO Last administered on 01/02/17 09:05; Admin Dose 2,000 UNIT; Start 01/01/17 at 09:00 Donepezil HCl (Aricept) 10 mg DAILY PO Last administered on 01/02/17 09:05; Admin Dose 10 MG; Start 01/01/17 at 09:00 Folic Acid (Folic Acid) 1 mg DAILY PO Last administered on 01/02/17 09:05; Admin Dose 1 MG; Start 01/01/17 at 09:00 Metoprolol Tartrate (Lopressor) 12.5 mg BID PO Last administered on 01/02/17 09:06; Admin Dose 12.5 MG; Start 01/01/17 at 09:00 Multivitamins Therapeutic (Theragran) 1 tab DAILY PO Last administered on 09:09; Admin Dose 1 TAB; Start 01/01/17 at 09:00 Diagnostic Test (Pha) (Accucheck) 1 ea 02 XX ; Start 01/02/17 at 02:00 Miscellaneous Information 1 ea NOTE XX ; Start 01/01/17 at 08:00 Glucose (Glutose) 15 gm Q15M PRN PO DECREASED GLUCOSE; Start 01/01/17 at 08:00 Glucose (Glutose) 22.5 gm Q15M PRN PO DECREASED GLUCOSE; Start 01/01/17 at 08: 00 Dextrose (D50w Syringe) 25 ml Q15M PRN IV DECREASED GLUCOSE; Start 01/01/17 at 08:00 Dextrose (D50w Syringe) 50 ml Q15M PRN IV DECREASED GLUCOSE; Start 01/01/17 at 08:00 Glucagon (Glucagen) 1 mg Q15M PRN IM DECREASED GLUCOSE; Start 01/01/17 at 08:00 Glucose (Glutose) 15 gm Q15M PRN BUCCAL DECREASED GLUCOSE; Start 01/01/17 at 08 :00 Hydralazine HCl (Apresoline) 25 mg Q4 PRN PO SBP >165; Start 01/01/17 at 18:00 VANESA GUDINO 20, 2017 12:22
--- NOTE | 2017-01-02 14:29 | RADRPT ---
PROCEDURE: Lexiscan myocardial perfusion study CLINICAL INDICATION: 76 -year-old patient complaining of chest pain. TECHNIQUE: Lexiscan 0.4 mg intravenously separate acquisition gated myocardial perfusion SPECT usi ng Tc 99m Myoview 30.8 mCi intravenously at stress and Tc-99m Myoview, 10.8 mCi intravenously at res t was performed using the rest/stress sequence. Poststress Myoview SPECT images were obtained in th e supine position. COMPARISON: March 03, 2015. FINDINGS: Perfusion images reveal no evidence of perfusion defects. Lexiscan post stress gated SPECT images demonstrate no wall motion abnormalities. IMPRESSION: 1. Normal study with no evidence of new perfusion defects or new wall motion abnormalities. 2. The left ventricle ejection fraction at stress is 59% (prior EF was 64%). A call report was made to Dr. Fuller at 10:28 p.m. on January 02, 2017 RPTAT: HH .Khadijah Gonzales MD, MD Date Time Electronically viewed and signed by .Khadijah Gonzales MD, on 01/02/2017 14:29 .L/
--- NOTE | 2017-01-02 17:01 | CONS ---
Date/Time of Note Date/Time of Note DATE: 01/02/17 TIME: 17:00 Assessment/Plan Assessment/Plan Chief Complaint/Hosp Course IMPRESSION: 1. The patient has hyperkalemia. 2. End-stage renal disease. 3. The patient has congestive heart failure. 4. Hypertension. 5. Anemia. 6. Atrial fibrillation. 7. Noncompliance with dialysis regimen. PLAN HD Problems: Consultation Date/Type/Reason Admit Date/Time Dec 31, 2016 at 23:25 Initial Consult Date Type of Consultation: RENAL Referring Provider: SANDOVAL MORILLO MD 24 HR Interval Summary Constitutional: no complaints Exam/Review of Systems Vital Signs Vitals Vital Signs Date Time Temp Pulse Resp B/P Pulse Ox O2 Delivery O2 Flow Rate FiO2 01/02/17 16:30 69 01/02/17 16:26 98.0 20 177/75 98 01/01/17 01:03 2.0 98 01/01/17 00:38 Nasal Cannula Intake and Output 01/01/17 01/01/17 01/02/17 15:00 23:00 07:00 Intake Total 300 ml 960 ml 750 ml Output Total 2300 ml 850 ml Balance -2000 ml 960 ml -100 ml Exam Neck: supple Respiratory: clear to auscultation Cardiovascular: regular rate and rhythm Gastrointestinal: soft Musculoskeletal: nl extremities to inspection Extremities: normal pulses Results Result Diagram: 01/02/17 0549 01/02/17 0549 Results 24 hrs Laboratory Tests Test 01/01/17 17:12 01/01/17 18:00 01/01/17 20:53 01/02/17 01:51 Bedside Glucose 205 262 H 121 Stool Occult Blood NEGATIVE Test 01/02/17 05:49 01/02/17 07:41 01/02/17 13:24 Anion Gap 17 #H Basophils # 0.1 Basophils % 0.9 Blood Urea Nitrogen 25 #H Calcium Level 8.1 L Carbon Dioxide Level 31 # Chloride Level 96 L Creatinine 5.55 #H Eosinophils # 0.3 Eosinophils % 4.3 Glucose Level 112 Hematocrit 32.3 L Hemoglobin 10.6 L Lymphocytes # 1.8 Lymphocytes % 23.3 Magnesium Level 1.8 Mean Corpuscular Hemoglobin 28.3 L Mean Corpuscular Hemoglobin Concent 32.8 Mean Corpuscular Volume 86.1 Mean Platelet Volume 10.4 Monocytes # 0.8 Monocytes % 10.2 Neutrophils # 4.7 Neutrophils % 61.0 Nucleated Red Blood Cells # 0.0 Nucleated Red Blood Cells % 0.0 Phosphorus Level 3.9 Platelet Count 199 Potassium Level 3.9 # Red Blood Count 3.75 L Red Cell Distribution Width 14.5 Sodium Level 140 White Blood Count 7.6 Bedside Glucose 122 157 Medications Medications Current Medications Ondansetron HCl (Zofran Inj) 4 mg Q6H PRN IV NAUSEA AND/OR VOMITING; Start at 23:30 Aspirin (Aspirin) 81 mg DAILY PO Last administered on 01/02/17 09:05; Admin Dose 81 MG; Start 01/01/17 at 09:00 Nitroglycerin (Nitroglycerin (Sl Tab) 0.4 Mg) 1 tab Q5M PRN SL CHEST PAIN; Start 12/31/16 at 23:30 Acetaminophen (Tylenol Tab) 650 mg Q6H PRN PO PAIN LEVEL 1-3 OR FEVER; Start at 23:30 Acetaminophen/ Hydrocodone Bitart ([place] (5/325)) 1 tab Q6H PRN PO PAIN LEVEL 4 -6; Start 12/31/16 at 23:30 Morphine Sulfate (morphine) 2 mg Q4H PRN IV PAIN LEVEL 7-10; Start 12/31/16 at 23:30 Zolpidem Tartrate (Ambien) 5 mg QHS PRN PO INSOMNIA Last administered on 22:04; Admin Dose 5 MG; Start 12/31/16 at 23:30 Pantoprazole (Protonix Tab) 40 mg DAILY@06 PO ; Start 01/01/17 at 06:00 Heparin Sodium (Porcine) (Heparin (5000 Units/0.5 ml)) 5,000 unit Q12 SC Last administered on 01/02/17 09:11; Admin Dose 5,000 UNIT; Start 01/01/17 at 09:00 Calcium Acetate (Phos[place]) 667 mg TID PO Last administered on 01/02/17 13:26; Admin Dose 667 MG; Start 01/01/17 at 09:00 Cholecalciferol (Vitamin D) 2,000 unit DAILY PO Last administered on 01/02/17 09:05; Admin Dose 2,000 UNIT; Start 01/01/17 at 09:00 Donepezil HCl (Aricept) 10 mg DAILY PO Last administered on 01/02/17 09:05; Admin Dose 10 MG; Start 01/01/17 at 09:00 Folic Acid (Folic Acid) 1 mg DAILY PO Last administered on 01/02/17 09:05; Admin Dose 1 MG; Start 01/01/17 at 09:00 Metoprolol Tartrate (Lopressor) 12.5 mg BID PO Last administered on 01/02/17 09:06; Admin Dose 12.5 MG; Start 01/01/17 at 09:00 Multivitamins Therapeutic (Theragran) 1 tab DAILY PO Last administered on 09:09; Admin Dose 1 TAB; Start 01/01/17 at 09:00 Diagnostic Test (Pha) (Accucheck) 1 ea 02 XX ; Start 01/02/17 at 02:00 Miscellaneous Information 1 ea NOTE XX ; Start 01/01/17 at 08:00 Glucose (Glutose) 15 gm Q15M PRN PO DECREASED GLUCOSE; Start 01/01/17 at 08:00 Glucose (Glutose) 22.5 gm Q15M PRN PO DECREASED GLUCOSE; Start 01/01/17 at 08: 00 Dextrose (D50w Syringe) 25 ml Q15M PRN IV DECREASED GLUCOSE; Start 01/01/17 at 08:00 Dextrose (D50w Syringe) 50 ml Q15M PRN IV DECREASED GLUCOSE; Start 01/01/17 at 08:00 Glucagon (Glucagen) 1 mg Q15M PRN IM DECREASED GLUCOSE; Start 01/01/17 at 08:00 Glucose (Glutose) 15 gm Q15M PRN BUCCAL DECREASED GLUCOSE; Start 01/01/17 at 08 :00 Hydralazine HCl (Apresoline) 25 mg Q4 PRN PO SBP >165; Start 01/01/17 at 18:00 DELILAH MOONEY MD Jan 02, 2017 17:01
--- NOTE | 2017-01-02 17:19 | PDOCDIS ---
Discharge Instructions CONDITION Patient Condition: Stable HOME CARE INSTRUCTIONS: Diet Instructions: 2gm Na ACTIVITY: Activity Restrictions: Slowly Increase Activity FOLLOW UP/APPOINTMENTS Appointments see prescriptions, follow up with PMD within 1 week, discussed in detail with family and patient at bedside. AIDA MORILLO MD Jan 02, 2017 17:19
[2017-01-02] MEDS ORDERED: METO-448 PO (17:29)
[2017-01-02] MEDS ORDERED: CALC667C PO (17:29)
[2017-01-02] MEDS ORDERED: LINA5TAB PO (17:31)
[2017-01-02] MEDS ORDERED: ZOLP10TA PO (17:31)
[2017-01-02] MEDS ORDERED: AMLO2.5T78 PO (17:31)
[2017-01-02] MEDS ORDERED: AMLODIPINE 5 MG TAB PO ONE (18:00)
--- NOTE | 2017-01-02 18:28 | RADRPT ---
Echocardiogram Report Patient Name: GILMER SHORT Gender: Female Date: 1940 Study Date: 02-Jan-2017 Event Technician: Buck Navarro [facility] Location: 524 Ref. Physician: AIDA MORILLO Quality: Technically Difficult Study Procedures: Transthoracic echocardiogram with complete 2D, M-Mode, and doppler examination. Indications: Congestive Heart Failure. 2D/M Mode Doppler Measurement Value Normal Ranges Measurement Value Normal Ranges LVIDd 2D 4.8 3.5 - 5.6 cm FAUZIA Vmax 1.3 cm2 LVIDs 2D 3.1 2.1 - 4.1 cm FAUZIA VTI 1.3 cm2 LVPWd 2D 1.0 0.6 - 1.1 cm AV Mean Sloan 1.7 m/sec IVSd 2D 1.2 0.6 - 1.1 cm AV Mean PG 12.1 mmHg AoR Diam 2D 2.4 2.0 - 3.7 cm AV Peak Sloan 2.2 m/sec EDV 2D 108.1 cm3 AV Peak PG 19.7 mmHg ESV 2D 31.1 cm3 AV VTI 55.5 cm LA Dimen 2D 4.6 2.3 - 4.0 cm AI Peak PG 61.3 mmHg LVOT Diam 2.0 cm AI Peak Sloan 3.9 m/sec AI PHT 495.3 msec LVOT Mean Sloan 0.7 m/sec LVOT Mean PG 2.0 mmHg LVOT Peak Sloan 0.9 m/sec LVOT Peak PG 3.5 mmHg LVOT VTI 24.6 cm MV E Peak Sloan 0.9 m/sec MV A Peak Sloan 0.9 m/sec MV E/A 1.0 MV Decel Time 219 msec MV Decel [place] 4 MV E/A 1.0 TR Peak Sloan 2.5 m/sec TR Peak PG 25.1 mmHg RVSP 33.0 mmHg Findings Left Ventricle: Lower limits of normal systolic function. Normal left ventricular cavity size. Normal left ventricular wall thickness. Ejection fraction is visually estimated at 5055 %. Tissue Doppler/Mitral Doppler indices are consistent with impaired relaxation (Stage I diastolic dysfunction). These segments of the LV are hypokinetic mid septum segment. Right Ventricle: Pacemaker right heart. Left Atrium: There is moderate enlargement of left atrium. Right Atrium: There is mild enlargement of right atrium. Mitral Valve: Mitral valve leaflets appear mildly thickened. Mild mitral annular calcification. Moderate to severe mitral valve regurgitation. Aortic Valve: Mild aortic stenosis. Aortic valve Max velocity 2.22 m/sec. Max PG 19.70 mmHg. Mean PG 12.10 mmHg. Aortic cusps appear moderately calcified. Mild aortic valve regurgitation. Tricuspid Valve: Estimated peak PA systolic pressure 33 mmHg. There is moderate tricuspid regurgitation. Pulmonic Valve: Pulmonic valve not well visualized. There is mild pulmonic regurgitation. Pericardium: Normal pericardium with no significant pericardial effusion. Aorta: Normal aortic root. IVC: Dilated IVC with respiratory collapse consistent with elevated right atrial pressure. Conclusions 1.Lower limits of normal systolic function. Normal left ventricular cavity size. Normal left ventricular wall thickness. Ejection fraction is visually estimated at 50-55 %. Tissue Doppler/Mitral Doppler indices are consistent with impaired relaxation (Stage I diastolic dysfunction). These segments of the LV are hypokinetic mid septum segment. 2.Pacemaker right heart. 3.There is moderate enlargement of left atrium. 4.There is mild enlargement of right atrium. 5.Mitral valve leaflets appear mildly thickened. Mild mitral annular calcification. Moderate to severe mitral valve regurgitation. 6.Mild aortic stenosis. Mild aortic valve regurgitation. 7.Estimated peak PA systolic pressure 33 mmHg. There is moderate tricuspid regurgitation. 8.There is mild pulmonic regurgitation. Electronically Signed By: Curry Fuller 02-Jan-2017 18:27:58 -0700 Patient Name: GILMER SHORT Study Date: 02-Jan-2017 [id number]
--- NOTE | 2017-01-03 00:40 | CARRPT ---
DATE OF PROCEDURE: 01/02/2017 PROCEDURE PERFORMED: Lexiscan Cardiolite stress test REASON FOR STRESS TESTING: Chest pain, assess for ischemia. BASELINE VITAL SIGNS AND ELECTROCARDIOGRAM: Pulse 61, blood pressure 172/75. Electrocardiogram rev eals normal sinus rhythm, rate of 61 with borderline left axis deviation and nonspecific ST and T-wa ve abnormalities. PROCEDURE: The patient underwent standard Lexiscan infusion protocol over 10 seconds followed by ra diolabeled tracer. The patient's test was stopped due to completion of protocol. Maximal achieved blood pressure during the test 153/68. Maximum achieved heart rate during the test 71. ELECTROCARDIOGRAM FINDINGS: The patient did not develop any new Lexiscan-induced ST or T-wave patel es from baseline abnormalities. Rare PVCs. SYMPTOMS: The patient did not have any complaints of chest pain or shortness of breath during stres s testing. IMPRESSION: 1. No Lexiscan-induced ST or T-wave changes from baseline abnormalities or diagnostic for cardiac i schemia. 2. No complaints of chest pain or shortness of breath during stress test. 3. Rare premature ventricular contractions during stress test. 4. Report of nuclear images to follow in separate dictation. Dictated By: VANESA VALLECILLO/NTS Conf#: [id number] DID#: [id number] CC: AIDA MORILLO MD;*EndCC*
--- NOTE | 2017-01-03 11:03 | DS ---
DATE OF ADMISSION: 12/31/2016 DATE OF DISCHARGE: 01/02/2017 REASON FOR ADMISSION: Chest pain, hyperkalemia, CHF exacerbation. HOSPITAL COURSE: The patient is a 76-year-old female with a history of end-stage renal dis ease on dialysis twice a week, with poor compliance, history of hypertension, cardiomyopathy, CHF, s tatus post AICD placement, pacemaker placement, diabetes mellitus, depression, diastolic dysfunction , heart failure, dyslipidemia, CABG secondary to coronary artery disease. The patient missed dialys is on Monday because she had diarrhea and abdominal pain. Now presents to the ER with increasing sh ortness of breath and chest discomfort. Upon arrival, potassium was high at 5.8. A chest x-ray revealed cardiomegaly with mild failure and small right pleural effusion. I called to Dr. Ren Rivas and the patient was dialyzed today, the second day in a row. The patient is feelin g better. His chest pain resolved but because of her risk factors, which include coronary artery dis ease, it was decided to proceed with a nuclear stress test. Nuclear stress test was done which showe d normal study with no evidence of perfusion defects or new wall motion abnormalities. The left tiffany tricle ejection fraction at stress is 59%. Because also she was complaining of abdominal pain an ul trasound was done which showed liver is mildly enlarged but without other abnormalities. There was no evidence of contour nodularity or coarsening of the hepatic architecture to suggest sonographic c hanges of cirrhosis and mild to moderate perihepatic ascites and bilateral pleural effusion are pres ent. Mild gallbladder wall thickening is nonspecific in the presence of ascites. No gallstones are seen. If clinical concern for cholecystitis, HIDA scan can be obtained. There is mild atrophic marilyn nges of both kidneys without hydronephrosis. I believe that her ascites is likely related to fluid overload state as patient does not have dialysis as much as she needs to. Stool occult blood was ne gative. The patient is feeling better. Blood pressure is slightly high. We will titrate her medica tions up. Heart rate is now in the 60s to 70s stable. The patient can be discharged. MRSA of the nares was negative. Again, the following day after admission her potassium went up to 7.1. Again, the patient was dialy zed the day after. The patient is currently doing well. She also complained of food being stuck in the esophagus and epigastric pain. I put her on Protonix. The patient does not want inpatient GI wor kup so I will refer to the GI specialist for possible EGD. DISCHARGE MEDICATIONS: Patient will be discharged with the following medications: 1. Aricept 10 mg daily. 2. Aspirin 81 mg daily. 3. Metoprolol tartrate 25 b.i.d. 4. Nephro-Meghna 1 tablet daily. 5. Protonix 40 mg daily. 6. Ferrous sulfate 325 daily. 7. Ambien 10 mg at bedtime p.r.n. insomnia. 8. Amlodipine 5 mg daily. 9. Tradjenta 5 mg daily. 10. Folic acid 1 mg daily. 11. PhosLo 667 two tabs t.i.d. GI consultation. FINAL DIAGNOSES: 1. Chest pain, rule out acute coronary syndrome. 2. Congestive heart failure exacerbation. 3. Chronic kidney disease stage V. 4. Severe hyperkalemia. 5. Ascites likely secondary to fluid overload state. 6. Anemia of chronic disease. 7. Diabetes mellitus. Hemoglobin A1c 7.3. We will start the patient on Tradjenta. 8. Coronary artery disease, status post coronary artery bypass graft. 9. Poor compliance. 10. Hypertension. Again, serial troponins were negative. I spoke with the family and the patient, if she has any worsening symptoms, fevers, chills, change i n condition to call 911 or go to nearest emergency department. DIET: 2 g sodium ADA 1800. ACTIVITY: As tolerated. Dictated By: AIDA PARRY/KIM Conf#: [id number] DID#: [id number]
== END 2017-01-02 20:00 | disposition home or self-care (01) | DRG 291 ==
LOC: E/R 21:54 → TEL 23:25
PROVIDERS: ADMIT Internal Medicine; ATTEND Internal Medicine
PROC: 5A1D60Z (ICD-10-PCS; principal; 2017-01-01)
DX: I13.2 Hypertensive heart and chronic kidney disease with heart failure and with stage 5 chronic kidney disease, or end stage renal disease (principal); N18.6 End stage renal disease; E11.22 Type 2 diabetes mellitus with diabetic chronic kidney disease; R18.8 Other ascites; E87.5 Hyperkalemia; I42.9 Cardiomyopathy, unspecified; I50.9 Heart failure, unspecified; E87.70 Fluid overload, unspecified; Z99.2 Dependence on renal dialysis; Z95.810 Presence of automatic (implantable) cardiac defibrillator; E78.5 Hyperlipidemia, unspecified; Z95.1 Presence of aortocoronary bypass graft; I25.10 Atherosclerotic heart disease of native coronary artery without angina pectoris; Z87.891 Personal history of nicotine dependence; R10.13 Epigastric pain; Z91.15 Patient's noncompliance with renal dialysis; I48.91 Unspecified atrial fibrillation; F41.9 Anxiety disorder, unspecified; D63.8 Anemia in other chronic diseases classified elsewhere
CPT/HCPCS: 36415; 71010; 76700; 78452; 80048; 80053; 80061; 82270; 82550; 82553; 82607; 82962; 83036; 83735; 83880; 84100; 84443; 84484; 85025; 85610; 85730; 87081; 90935; 93005; 93017; 93306; 96374; 96375; A9500; A9505; J1644; J1815; J2785

== ENCOUNTER 2017-07-10 12:05 | Observation (INO) | payer MEDICARE, MEDICAID ==
[2017-07-10] VITALS (9 sets, daily range): BP systolic 115–132; BP diastolic 51–70; PULSE 66–71; TEMP 98; Ht 157.5 cm; Wt 69.3 kg
[~2017-07-10] VITALS: Ht 157.5 cm; Wt 69.3 kg
[2017-07-10] MEDS: CALCIUM ACETATE 667 MG CAP PO SCH
[~2017-07-10 12:05] MED LIST changes: +AMLO2.5T78 PO; -CHOL2000 PO; -FURO40TA4 PO; -HYDR-3498 PO; +LINA5TAB PO; -LISI20TA11 PO; -MULT-552 PO; +ZOLP10TA PO
--- NOTE | 2017-07-10 13:26 | ERA ---
ER Documentation Chief Complaint Date/Time DATE: 07/10/17 TIME: 13:25 Chief Complaint pt bib family with c/o back pain s/p fall 8 days ago, missed HD last week HPI The patient is a 76-year-old female, presenting to the ER because of worsening back pain after she fell 8 days ago. She saw her physician it is ago and had negative x-ray of the back. She was discharged with [place], however she is not getting better. The pain is worse with movement. She normally has hemodialysis on Monday and Monday, however she did not go to dialysis because of back pain. She denies fecal/urinary incontinence, fever, neck pain, chest pain, dyspnea, abdominal pain. She does not smoke nor drink Past medical history: Chronic kidney disease, hypertension, diabetes mellitus, CAD, history of CHF, anemia Past surgical history: CABG, appendectomy ROS All systems reviewed and are negative except as per history of present illness. Medications Home Meds Active Scripts Linagliptin (TRADJENTA) 5 Mg Tablet, 5 MG PO DAILY for 30 Days, TAB Prov:AIDA MORILLO MD 01/02/17 Zolpidem Tartrate* (Ambien*) 10 Mg Tablet, 10 MG PO QHS Y for INSOMNIA for 30 Days, TAB Prov:AIDA MORILLO MD 01/02/17 Calcium Acetate* (Calcium Acetate*) 667 Mg Capsule, 667 MG PO TID for 30 Days, CAP Prov:AIDA MORILLO MD 01/02/17 Reported Medications Potassium Chloride* (Potassium Chloride*) 8 Meq Capsule.er, 8 MEQ PO DAILY, CAP 07/10/17 Hydrocodone/Acetaminophen ([place] 10-325 Tablet) 1 Each Tablet, 1 EACH PO BID, TAB 07/10/17 Insulin Glargine* (Lantus*) 100 Unit/Ml Soln, 40 UNIT SC QHS, #1 VIAL 07/10/17 Sertraline Hcl* (Sertraline Hcl*) 50 Mg Tablet, 50 MG PO DAILY, #30 TAB 07/10/17 Carvedilol* (Carvedilol*) 25 Mg Tablet, 25 MG PO BID, #60 TAB 07/10/17 Amlodipine Besylate* (Norvasc*) 5 Mg Tablet, 5 MG PO DAILY, TAB 07/10/17 Diclofenac Sodium* (Diclofenac Sodium*) 75 Mg Tablet.dr, 75 MG PO BID, #60 TAB 07/10/17 Furosemide* (Furosemide*) 40 Mg Tablet, 40 MG PO DAILY, TAB 07/10/17 Aspirin (Low Dose Aspirin) 81 Mg Tablet.dr, 81 MG PO DAILY 03/02/15 Discontinued Reported Medications Donepezil* (Donepezil*) 10 Mg Tablet, 10 MG PO DAILY, TAB 03/02/15 Folic Acid* (Folic Acid*) 1 Mg Tablet, 1 MG PO DAILY, TAB 03/02/15 Discontinued Scripts Amlodipine Besylate* (Amlodipine Besylate*) 2.5 Mg Tablet, 5 MG PO DAILY for 30 Days, #30 TAB Prov:AIDA MORILLO MD 01/02/17 Metoprolol Tartrate* (Lopressor*) 25 Mg Tab, 25 MG PO BID for 30 Days, TAB Prov:AIDA MORILLO MD 01/02/17 Sodium Polystyrene Sulfonate* (Kayexalate*) 15 Gm/60 Ml Susp, 30 GM PO each day for 2 Days, ML Prov:CHAYO BRUMFIELD DO 10/29/16 Ferrous Sulfate* (Ferrous Sulfate*) 325 Mg Tabec, 325 MG PO DAILY, #30 TAB Prov:AIDA MORILLO MD 03/05/15 Pantoprazole (Protonix) 40 Mg Tabec, 40 MG PO DAILY@06 for 30 Days Prov:AIDA MORILLO MD 03/05/15 Allergies Allergies: Coded Allergies: No Known Drug Allergies (Verified Allergy, Unknown, 07/10/17) Uncoded Allergies: PLASTIC TAPE (Allergy, Mild, ITCHING, 01/02/17) PMhx/Soc History of Surgery: Yes (CABG 5YRS, EYE SURGERY 1Y,APPENDECTOMY,ICD) Anesthesia Reaction: No Hx Neurological Disorder: No Hx Respiratory Disorders: No Hx Cardiac Disorders: Yes (CAD) Hx Psychiatric Problems: No Hx Miscellaneous Medical Probl: No Hx Alcohol Use: No Hx Substance Use: No Hx Tobacco Use: No Physical Exam Vitals Vital Signs Date Time Temp Pulse Resp B/P Pulse Ox O2 Delivery O2 Flow Rate FiO2 07/10/17 16:08 98.0 58 20 160/56 97 Room Air 07/10/17 15:44 53 20 96 21 07/10/17 12:23 97.3 62 18 169/72 97 Physical Exam Const: No acute distress. Head: Atraumatic. Eyes: Normal Conjunctiva. ENT: Normal External Ears, Nose and Mouth. Neck: Full range of motion. No meningismus. Resp: Bibasilar crackle Cardio: Regular rate and rhythm. Abd: Soft, non distended, normal bowel sounds, non tender. Skin: No petechiae or rashes. Back: Mild lower thoracic and lumbar tenderness. Ext: No cyanosis, or edema. Neur: Awake and alert. No focal deficit Psych: Normal Mood and Affect. Result Diagram: 07/10/17 1356 07/10/17 1356 Results 24 hrs Laboratory Tests Test 07/10/17 13:50 07/10/17 13:56 07/10/17 16:02 Bedside Glucose 202mg/dL 172mg/dL White Blood Count 7.510^3/ul Red Blood Count 3.8310^6/ul Hemoglobin 11.2g/dl Hematocrit 33.3% Mean Corpuscular Volume 86.9fl Mean Corpuscular Hemoglobin 29.2pg Mean Corpuscular Hemoglobin Concent 33.6g/dl Red Cell Distribution Width 14.6% Platelet Count 81878^3/UL Mean Platelet Volume 9.9fl Neutrophils % 71.1% Lymphocytes % 13.8% Monocytes % 6.7% Eosinophils % 6.8% Basophils % 1.1% Nucleated Red Blood Cells % 0.0/100WBC Neutrophils # 5.310^3/ul Lymphocytes # 1.010^3/ul Monocytes # 0.510^3/ul Eosinophils # 0.510^3/ul Basophils # 0.110^3/ul Nucleated Red Blood Cells # 0.010^3/ul Sodium Level 132mmol/L Potassium Level 5.6mmol/L Chloride Level 93mmol/L Carbon Dioxide Level 23mmol/L Anion Gap 22 Blood Urea Nitrogen 99mg/dl Creatinine 13.92mg/dl Glucose Level 208mg/dl Calcium Level 9.1mg/dl Total Bilirubin 0.0mg/dl Direct Bilirubin 0.00mg/dl Indirect Bilirubin 0.0mg/dl Aspartate Amino Transf (AST/SGOT) 27IU/L Alanine Aminotransferase (ALT/SGPT) 27IU/L Alkaline Phosphatase 73IU/L Total Protein 7.4g/dl Albumin 3.9g/dl Globulin 3.50g/dl Albumin/Globulin Ratio 1.11 Lipase 141U/L Current Medications Medications (Trade) Dose Ordered Sig/Lety Route PRN Reason Start Time Stop Time Status Last Admin Dose Admin Morphine Sulfate (morphine) 2 mg ONCE ONCE IV 07/10/17 14:00 07/10/17 14:01 DC 07/10/17 14:06 Ondansetron HCl (Zofran Inj) 4 mg ONCE STAT IV 07/10/17 13:52 07/10/17 13:56 DC 07/10/17 14:05 Sodium Polystyrene Sulfonate (Kayexalate) 30 gm ONCE STAT PO 07/10/17 15:26 07/10/17 15:31 DC 07/10/17 16:00 Albuterol (Proventil 0.5% (Neb)) 15 mg ONCE STAT INH 07/10/17 15:26 07/10/17 15:31 DC 07/10/17 15:44 Insulin Human Regular (Humulin R) 10 unit ONCE STAT IV 07/10/17 15:26 07/10/17 15:31 DC 07/10/17 16:03 Dextrose (D50w Syringe) 50 ml ONCE PRN IV POC BLOOD GLUCOSE <250 MG/DL 07/10/17 15:30 07/10/17 23:00 Miscellaneous Information 1 ea NOTE XX 07/10/17 16:00 Glucose (Glutose) 15 gm Q15M PRN PO DECREASED GLUCOSE 07/10/17 16:00 Glucose (Glutose) 22.5 gm Q15M PRN PO DECREASED GLUCOSE 07/10/17 16:00 Dextrose (D50w Syringe) 25 ml Q15M PRN IV DECREASED GLUCOSE 07/10/17 16:00 Dextrose (D50w Syringe) 50 ml Q15M PRN IV DECREASED GLUCOSE 07/10/17 16:00 Glucagon (Glucagen) 1 mg Q15M PRN IM DECREASED GLUCOSE 07/10/17 16:00 Glucose (Glutose) 15 gm Q15M PRN BUCCAL DECREASED GLUCOSE 07/10/17 16:00 Dextrose 50 ml 50 ml ONCE ONCE IV 07/10/17 16:00 07/10/17 16:01 DC 07/10/17 16:00 Mannitol 50 ml @ 50 mls/5 min DURING DIALYSIS PRN IV DISEQUILIBRIUM SYNDROME PPX 07/10/17 17:00 07/10/17 23:45 Albumin Human (Albumin Human 25%) 50 ml @ 100 mls/hr DURING DIALYSIS PRN IV SBP<90 DURING DIALYSIS 07/10/17 17:00 07/10/17 23:45 Procedures/MDM [place] [address] Radiology Main Line: [phone] DIAGNOSTIC IMAGING REPORT Patient: GILMER SHORT : 1940 Age: 76 Sex: F MR #: [id number] DOS: 07/10/17 1352 Ordering MD: VERNA ANDUJAR MD Location: E/R Room/Bed: PROCEDURE: CT thoracic spine without contrast. CLINICAL INDICATION: Trauma due to a fall. Back pain. TECHNIQUE: Helical axial sections were obtained through the thoracic spine without intravenous contrast enhancement. Sagittal and coronal reformatted images were accomplished using the data from the axial images. Total exam DLP is 911.34 mGy-cm. CTDIvol is 24.89 mGy. One or more of the following dose reduction techniques were used: Automated exposure control, adjustment of the mA and/or kV according to patient size, use of iterative reconstruction technique. COMPARISON: No prior studies are available for comparison. FINDINGS: There is normal alignment of the vertebrae. There is an acute superior endplate compression fracture of T11 vertebra with no retrolisthesis of fracture fragments. There is approximately 20% loss of height. There is no other fracture. There is flowing ossification along the anterolateral aspect of 8 contiguous lower thoracic vertebral bodies, with preservation of disk height consistent with diffuse idiopathic skeletal hyperostosis (DISH). There is no lytic or blastic lesion. There is a right-sided permanent pacemaker/internal cardiac defibrillator. There are sternal wires. Calcification is present in the aorta consistent with atherosclerosis. The heart is enlarged. There is a moderate right pleural effusion and small left pleural effusion. IMPRESSION: 1. Acute superior endplate compression fracture of T11 with approximately 20% loss of height. No retrolisthesis of fracture fragments. Number diffuse idiopathic skeletal hyperostosis. 3. Right-sided permanent pacemaker/internal cardiac defibrillator. 4. Atherosclerosis. 5. Cardiomegaly. 6. Moderate right pleural effusion and small left pleural effusion. RPTAT: QQ .Shan Warren MD, MD Date Time Electronically viewed and signed by .Shan Warren MD, MD on 07/10/2017 14:55 .R/ CC: VERNA ANDUJAR MD [place] [address] Radiology Main Line: [phone] DIAGNOSTIC IMAGING REPORT Patient: GILMER SHORT : 1940 Age: 76 Sex: F MR #: [id number] DOS: 07/10/17 1352 Ordering MD: VERNA ANDUJAR MD Location: E/R Room/Bed: PROCEDURE: CT Lumbar Spine. CLINICAL INDICATION: Trauma due to a fall. Back pain. TECHNIQUE: The study was performed on a multidetector CT scanner. Spiral axial 1 mm images were obtained through the lumbar spine and reformatted at 2.5 mm slice thickness. Sagittal and coronal reformations were created from the raw axial data. The images were reviewed on a PACS workstation. Total exam DLP is 799.82 mGy-cm. CTDIvol is 30.45 mGy. One or more of the following dose reduction techniques were used: Automated exposure control, adjustment of the mA and/or kV according to patient size, use of iterative reconstruction technique. COMPARISON: No prior studies are available for comparison. FINDINGS: The vertebral bodies demonstrate normal height, alignment and osseous mineralization. There is calcification in the aorta consistent with atherosclerosis. The retroperitoneal soft tissues are otherwise grossly normal. There is ascites. T12-L1: The disc and neuroforamina are unremarkable. L1-L2: The disc and neuroforamina are unremarkable. L2-L3: There are anterior osteophytes. The disc and foramina are normal. L3-L4: There is diffuse disc bulge and hypertrophy of the facet joints and ligamenta flava resulting in moderate central stenosis. There is no foraminal stenosis. Anterior osteophytes are noted. L4-L5: There is diffuse disc bulge and hypertrophy of the facet joints and ligamenta flava resulting in severe central stenosis. There is no foraminal stenosis. Anterior osteophytes are noted. L5-S1: The disc is normal. There is hypertrophy of the facet joints with mild central stenosis. There is right-sided moderate to severe foraminal stenosis. The left neural foramen is normal. Anterior osteophytes are noted. IMPRESSION: 1. Spondylitic changes as described above. 2. Atherosclerosis. 3. Ascites. 4. No acute fracture. RPTAT: QQ .Shan Warren MD, MD Date Time Electronically viewed and signed by .Shan Warren MD, MD on 07/10/2017 14:59 .R/ CC: VERNA ANDUJAR MD EKG: Read by emergency physician Rate/Rhythm: Normal Sinus Rhythm 60 beats/min QRS, ST, T-waves: No ST elevation, no T inversion, First-degree AV block, anterior Q waves, lateral T abnormality Impression: Abnormal EKG MEDICAL MAKING DECISION: The patient is a 76-year-old female, presenting with acute fluid overload, acute hypokalemia, acute T11 compression fracture, acute bilateral pleural effusion, acute ascites. She was treated with morphine 2 mg IV for pain, Zofran 4 mg IV for nausea, 1 ampule D50 IV, 10 units of regular insulin IV, Kayexalate 30 g p.o. and albuterol 15 mg nebulizer for acute hyperkalemia with good response The differential diagnoses considered include but are not limited to asthma, COPD, pneumonia, pulmonary embolus, pleural effusion, congestive heart failure. Critical Care: Time: 35 minutes excluding all billable procedures. Treatments/Evaluations: Close monitoring and treatment of unstable vital signs, cardiorespiratory, and neurologic status, while maintaining tight balance of fluid, respiratory, and cardiac interventions. Departure Diagnosis: Primary Impression: Fluid overload Additional Impressions: Hyperkalemia T11 vertebral fracture Bilateral pleural effusion Anemia Condition: Stable Comments I discussed the findings with the patient. I discussed the patient with her physician Dr. Morillo and her coin purse framer who were made aware of the lab, the treatment, the patient condition. The patient is admitted to Telemetry at 3:55 PM VERNA ANDUJAR MD Jul 10, 2017 13:26
[2017-07-10] MEDS ORDERED: ONDANSETRON 4 MG INJ IV STA (13:52)
[2017-07-10] MEDS ORDERED: morphine 2 MG INJ IV ONE (14:00)
[2017-07-10 14:11] LABS: BASOPHIL # 0.1 10^3/ul (0.0-0.1); BASOPHILS % 1.1 % (0.0-2.0); EOSINOPHILS # 0.5 10^3/ul (0.0-0.5); EOSINOPHILS % 6.8 % (0.0-7.0); HEMATOCRIT 33.3 % (37.0-47.0); HEMOGLOBIN 11.2 g/dl (12.0-16.0); LYMPHOCYTES % 13.8 % (15.0-51.0); MEAN CORPUSCULAR HEMOGLOBIN 29.2 pg (29.0-33.0); MEAN CORPUSCULAR HGB CONC 33.6 g/dl (32.0-37.0); MEAN CORPUSCULAR VOLUME 86.9 fl (82.0-101.0); MEAN PLATELET VOLUME 9.9 fl (7.4-10.4); MONOCYTE # 0.5 10^3/ul (0.3-0.9); MONOCYTES % 6.7 % (0.0-11.0); NEUTROPHIL # 5.3 10^3/ul (1.6-7.5); NEUTROPHILS % 71.1 % (39.0-77.0); PLATELET COUNT 201 10^3/UL (140-415); RED BLOOD COUNT 3.83 10^6/ul (4.20-5.40); RED CELL DISTRIBUTION WIDTH 14.6 % (11.5-14.5); WHITE BLOOD COUNT 7.5 10^3/ul (4.8-10.8)
[2017-07-10 14:31] LABS: ALBUMIN 3.9 g/dl (3.3-4.9); ALBUMIN/GLOBULIN RATIO 1.11; CALCIUM 9.1 mg/dl (8.4-10.2); CREATININE 13.92 mg/dl (0.44-1.00); TOTAL PROTEIN 7.4 g/dl (6.1-8.1)
[2017-07-10 14:35] LABS: POTASSIUM 5.6 mmol/L (3.5-5.1)
--- NOTE | 2017-07-10 14:55 | RADRPT ---
PROCEDURE: CT thoracic spine without contrast. CLINICAL INDICATION: Trauma due to a fall. Back pain. TECHNIQUE: Helical axial sections were obtained through the thoracic spine without intravenous con trast enhancement. Sagittal and coronal reformatted images were accomplished using the data from th e axial images. Total exam DLP is 911.34 mGy-cm. CTDIvol is 24.89 mGy. One or more of the followi ng dose reduction techniques were used: Automated exposure control, adjustment of the mA and/or kV a ccording to patient size, use of iterative reconstruction technique. COMPARISON: No prior studies are available for comparison. FINDINGS: There is normal alignment of the vertebrae. There is an acute superior endplate compression fracture of T11 vertebra with no retrolisthesis of fracture fragments. There is approximately 20% loss of he ight. There is no other fracture. There is flowing ossification along the anterolateral aspect of 8 contiguous lower thoracic vertebra l bodies, with preservation of disk height consistent with diffuse idiopathic skeletal hyperostosis (DISH). There is no lytic or blastic lesion. There is a right-sided permanent pacemaker/internal cardiac defibrillator. There are sternal wires. Calcification is present in the aorta consistent with atherosclerosis. The heart is enlarged. There is a moderate right pleural effusion and small left pleural effusion. IMPRESSION: 1. Acute superior endplate compression fracture of T11 with approximately 20% loss of height. No re trolisthesis of fracture fragments. Number diffuse idiopathic skeletal hyperostosis. 3. Right-sided permanent pacemaker/internal cardiac defibrillator. 4. Atherosclerosis. 5. Cardiomegaly. 6. Moderate right pleural effusion and small left pleural effusion. RPTAT: QQ .Shan Warren MD, MD Date Time Electronically viewed and signed by .Shan Warren MD, on 07/10/2017 14:55 .R/
--- NOTE | 2017-07-10 15:00 | RADRPT ---
PROCEDURE: CT Lumbar Spine. CLINICAL INDICATION: Trauma due to a fall. Back pain. TECHNIQUE: The study was performed on a multidetector CT scanner. Spiral axial 1 mm images were o btained through the lumbar spine and reformatted at 2.5 mm slice thickness. Sagittal and coronal ref ormations were created from the raw axial data. The images were reviewed on a PACS workstation. Tota l exam DLP is 799.82 mGy-cm. CTDIvol is 30.45 mGy. One or more of the following dose reduction te chniques were used: Automated exposure control, adjustment of the mA and/or kV according to patient size, use of iterative reconstruction technique. COMPARISON: No prior studies are available for comparison. FINDINGS: The vertebral bodies demonstrate normal height, alignment and osseous mineralization. There is calc ification in the aorta consistent with atherosclerosis. The retroperitoneal soft tissues are otherwi se grossly normal. There is ascites. T12-L1: The disc and neuroforamina are unremarkable. L1-L2: The disc and neuroforamina are unremarkable. L2-L3: There are anterior osteophytes. The disc and foramina are normal. L3-L4: There is diffuse disc bulge and hypertrophy of the facet joints and ligamenta flava resulting in moderate central stenosis. There is no foraminal stenosis. Anterior osteophytes are noted. L4-L5: There is diffuse disc bulge and hypertrophy of the facet joints and ligamenta flava resulting in severe central stenosis. There is no foraminal stenosis. Anterior osteophytes are noted. L5-S1: The disc is normal. There is hypertrophy of the facet joints with mild central stenosis. Ther e is right-sided moderate to severe foraminal stenosis. The left neural foramen is normal. Anterior osteophytes are noted. IMPRESSION: 1. Spondylitic changes as described above. 2. Atherosclerosis. 3. Ascites. 4. No acute fracture. RPTAT: QQ .Shan Warren MD, MD Date Time Electronically viewed and signed by .Shan Warren MD, on 07/10/2017 14:59 .R/
[2017-07-10] MEDS ORDERED: ALBUTEROL 0.5% (NEB) 2.5 MG/0.5 ML AMP INH STA (15:26)
[2017-07-10] MEDS ORDERED: NA POLYST SULFON 15 GM/60 ML BTL PO STA (15:26)
[2017-07-10] MEDS ORDERED: INSULIN REGULAR, HUMAN 100 UNIT/1 ML 3ML VIAL IV STA (15:26)
[2017-07-10] MEDS ORDERED: DEXTROSE 50% 50 ML SYRINGE IV PRN ×5 (15:30→21:30)
[2017-07-10] MEDS ORDERED: GLUCOSE GEL 15 GRAM TUBE PO PRN ×4 (16:00→21:30)
[2017-07-10] MEDS ORDERED: GLUCAGON 1 MG INJ IM PRN ×2 (16:00→21:30)
[2017-07-10] MEDS ORDERED: DEXTROSE 50% 50 ML SYRINGE IV ONE (16:00)
[2017-07-10] MEDS ORDERED: GLUCOSE GEL 15 GRAM TUBE BUCCAL PRN ×2 (16:00→21:30)
[2017-07-10] MEDS ORDERED: AMLO5TAB4 PO (16:07)
[2017-07-10] MEDS ORDERED: FURO40TA4 PO (16:07)
[2017-07-10] MEDS ORDERED: DICL75TA2 PO (16:07)
[2017-07-10] MEDS ORDERED: CARV25TA79 PO (16:08)
[2017-07-10] MEDS ORDERED: SERT50TA6 PO (16:08)
[2017-07-10] MEDS ORDERED: HYDR-902 PO (16:09)
[2017-07-10] MEDS ORDERED: LANT3I SC (16:09)
[2017-07-10] MEDS ORDERED: POTA8CAP PO (16:10)
[2017-07-10] MEDS ORDERED: ALBUMIN HUMAN 25% 50 ML IV PRN (17:00)
[2017-07-10] MEDS ORDERED: MANNITOL 25% 50 ML IV PRN (17:00)
[2017-07-10] MEDS ORDERED: ZOLPIDEM 5 MG TAB PO PRN (20:30)
[2017-07-10] MEDS ORDERED: ONDANSETRON 4 MG INJ IV PRN (20:30)
[2017-07-10] MEDS ORDERED: LORAZEPAM 0.5 MG TAB PO PRN (20:30)
[2017-07-10] MEDS ORDERED: ACETAMINOPHEN 325 MG TAB PO PRN (20:30)
[2017-07-10] MEDS ORDERED: HYDROCODONE/APAP (5/325) TAB PO PRN (20:30)
[2017-07-10] MEDS ORDERED: NACL 0.9% 3 ML SYG IV SCH (20:30)
[2017-07-10] MEDS ORDERED: DOCUSATE SODIUM 100 MG CAP PO PRN (20:30)
[2017-07-10] MEDS ORDERED: MAGNESIUM HYDROXIDE 30ML CUP PO PRN (20:30)
[2017-07-10] MEDS ORDERED: INSULIN GLARGINE [LANtus] 3 ML PEN SC SCH (21:00)
[2017-07-10] MEDS ORDERED: CALCIUM ACETATE 667 MG CAP PO SCH (21:00)
--- NOTE | 2017-07-10 21:18 | HP ---
DATE OF ADMISSION: 07/10/2017 REASON FOR ADMISSION: Low back pain, status post fall, hyperkalemia, missed hemodialysis. HISTORY OF PRESENT ILLNESS: Patient is a 76-year-old female with history of end-stage renal disease, left upper extremity AV fistula, hypertension, cardiomyopathy, CHF, status post AICD placement, diabetes mellitus, depression, dyslipidemia, coronary artery disease, status post CABG, 4-vessel disease in 2012, whose specialty development consultant is Dr. Ren Rivas. Patient unfortunately sustained a fall 8 days ago when she fell on the floor in the sitting position, and she has been complaining of back pain. She saw her primary medical doctor, and patient received pain medication and was instructed if the pain is worse, to go to the emergency department. Upon presentation today, patient stated that the pain is more severe. Upon evaluation, patient underwent lab work. She was found to have hyperkalemia and fluid overload state, and x-ray revealed moderate right pleural effusion and small left pleural effusion. Patient underwent extensive imaging, including a thoracic spine CT, which showed acute superior endplate compression fracture of T11, with approximately 20 percent loss of height, no retrolisthesis of fracture fragments. There are a number of diffuse idiopathic skeletal hyperostosis. There is right-sided permanent pacemaker internal cardiac defibrillator. There is atherosclerosis, cardiomegaly, moderate right pleural effusion and small left pleural effusion. This was followed by a lumbar spine CT scan, which shows spondylitic changes, as described, atherosclerosis, ascites. It was decided to admit the patient for further care for dialysis and pain control. Upon admission, I asked Dr. Ren Rivas to see the patient in consultation. The patient is already getting dialysis right now in the emergency department. Patient complaining of pruritus and low back pain. Otherwise, no other complaints. She denies any chest pain, shortness of breath, fever or chills. She denies dysuria. Denies any weakness or numbness. Patient is admitted for further care. PAST MEDICAL HISTORY: Include end-stage renal disease, cardiomyopathy, status post ICD placement, status post CABG, hypertension, dyslipidemia, previous history of diabetes mellitus, anxiety disorder. PAST SURGICAL HISTORY: Open appendectomy, multiple AV fistula surgery in the left upper extremity and Bakari catheter. SOCIAL HISTORY: The patient stopped smoking 30 years ago, but she smoked heavily. Alcohol: Stopped 30 years ago but drank a lot. IV drug abuse: None. FAMILY HISTORY: Mother from heart disease. Father had multiorgan failure in the hospital. ALLERGIES: NO KNOWN DRUG ALLERGIES. SHE IS ALLERGIC TO TAPE. PATIENT GETS DIALYSIS TWICE A WEEK. MEDICATIONS: Reviewed, include the followin. Amlodipine 5 mg daily. 2. Coreg 25 b.i.d. 3. Aspirin 81 daily. 4. Diclofenac 75 b.i.d. 5. [place] 10/325 b.i.d. 6. Sertraline 50 mg daily. 7. Ambien 10 mg at bedtime p.r.n. 8. Calcium acetate 667 t.i.d. 9. Lasix 40 mg daily. 10. KCl 8 mEq daily. 11. Lantus 40 units at bedtime. 12. Tradjenta 5 mg daily. PHYSICAL EXAMINATION: VITAL SIGNS: Temperature is 98, pulse 65, respirations 20, blood pressure 152/55, saturation 98 percent on room air. GENERAL APPEARANCE: Patient is in no acute distress. Patient is pale. CARDIAC: S1, S2. Regular rate. LUNGS: Clear. ABDOMEN: Soft. Slight epigastric pain. EXTREMITIES: There is actually no clubbing, cyanosis or edema. Left upper extremity AV fistula is noted. LABORATORY: White count is 7.5, hemoglobin 11.2, hematocrit 33, platelets 201, neutrophils 71 percent, lymphocytes 14 percent. Chemistry: Sodium 132, potassium 5.6, chloride 93, bicarb 23, BUN 99, creatinine 13.9, and glucose of 208. Albumin 3.9. Lipase is 141. Lumbar CT and thoracic spine CT as above. ASSESSMENT AND PLAN: This is a 76-year-old female with history of end-stage renal disease, coronary artery disease, status post coronary artery bypass graft, diabetes mellitus, hypertension, who presented with back pain, status post unfortunate fall, was found to have T11 compression fracture and hyperkalemia, as patient missed dialysis, with evidence of fluid overload state, manifested by pleural effusion. 1. Respiratory: Patient will be placed on oxygen support. Dialysis is currently being done for fluid removal. We will follow. 2. Cardiovascular. Resume patient's blood pressure meds. Continue aspirin for cardiac protection. Titrate blood pressure medication up as needed. Heparin for deep venous thrombosis prophylaxis will be provided. 3. Gastrointestinal. Patient will be placed on Protonix for gastrointestinal prophylaxis. 4. Back pain, likely status secondary to a fall, as patient has T11 compression fracture. May benefit from a brace. Physical Therapy to evaluate the patient during her stay. Pain control will be provided. 5. Patient's dialysis schedule to be decided by Dr. Ren Rivas, as patient gets dialysis only twice a week. 6. Diabetes mellitus. Previous hemoglobin A1c in the hospital was 7.3 in December 2016. Accu-Chek before meals and at bedtime will be obtained. Patient will be placed on weight-based insulin. We will monitor patient closely. Dictated By: Bradley Briceno MD /diamond/armando /Document#: [id number]
[2017-07-10] MEDS: morphine 2 MG INJ IV PRN (23:55)
[2017-07-11] VITALS (9 sets, daily range): BP systolic 136–162; BP diastolic 63–72; PULSE 57–72; RESP 17–20
[2017-07-11] MEDS: HEPARIN 5,000 UNIT/0.5 ML VIAL SC SCH ×2 (00:11→09:15)
[2017-07-11] MEDS: INSULIN ASPART [NOVOLOG] 3 ML PEN SC SCH ×3 (01:45→11:50)
--- NOTE | 2017-07-11 01:57 | CONS ---
DATE OF ADMISSION: 07/10/2017 DATE OF CONSULTATION: 07/10/2017 REASON FOR CONSULTATION: Dialysis. HISTORY OF PRESENT ILLNESS: This is a 76-year-old, woman with a past medical history of end-stage renal disease on hemodialysis Monday and Monday through left upper extremity fistula, hypertension, cardiomyopathy, CHF ,status post AICD, diabetes, depression, diastolic cardiovascular heart disease, dyslipidemia, status post coronary artery bypass, presented to the emergency department after having a fall at home 1 week ago. According to the patient, last week, she was walking, and then she slipped. After that, she started having lower back pain and left hip pain. She goes to the dialysis center Monday and Monday, but because of her pain, she could not go to her dialysis center and missed her HD last 1 week. Today, she was given a prescription of medications by her PMD. However, the pain still persisted so she came to the emergency department. The patient denied any tingling, numbness of the lower extremities. Denied any bowel and bladder incontinence. The patient denies any shortness of breath, any orthopnea, PND, any lower extremity edema. However, the patient still urinates 3- 4 times a day. On admission, vital signs were blood pressure 160/56, heart rate 58, patient afebrile, respiratory rate 20, saturating 99 percent on room air. LABORATORY: Showed sodium 132, potassium 5.6, BUN of 99, creatinine 13.92. The patient had a lumbar and T-spine CT that showed acute superior end-plate compression fracture of T11, and the patient was admitted for moderate right pleural effusion and small left pleural effusion and was admitted for further management. PAST MEDICAL HISTORY: 1. End-stage renal disease, on hemodialysis Monday and Monday. 2. Cardiomyopathy. 3. Status post AICD. 4. CABG. 5. Hypertension. 6. Dyslipidemia. 7. Diabetes. 8. Anxiety disorder. PAST SURGICAL HISTORY: Appendectomy and multiple AV fistula surgeries in the left upper extremity. SOCIAL HISTORY: Stopped tobacco over 30 years ago. Smoked heavily. Alcohol abuse, stopped 30 years ago. IVDA denies. FAMILY HISTORY: Mother from heart related problem. Sister has dialysis. ALLERGIES: THE PATIENT IS ALLERGIC TO TAPE. MEDICATION: Taking at home. The patient did not bring home medications however as per the last discharge. 1. Aricept 10. 2. Aspirin 81. 3. Metoprolol 25 b.i.d. 4. Nephro-Meghna 1 tab. 5. Protonix 40. 6. Iron sulfate. 7. Ambien. 8. Amlodipine 5. 9. Tradjenta. 10. Folic acid. 11. PhosLo 2 tabs t.i.d. REVIEW OF SYSTEMS: The patient denies any chest pain, any shortness of breath and orthopnea, PND, lower extremity edema. Still makes urine 3-4 times a day. The patient also complained of lower back pain. Also complained of left-sided hip pain. Denies any headache, any blurry vision. Denies any tingling, numbness, bladder and bowel incontinence. Denies any focal neurological deficits. PHYSICAL EXAMINATION: VITAL SIGNS: The patient's blood pressure 160/56, heart rate 58, afebrile, and respiratory rate 20. GENERAL: Awake, alert, oriented x4. Appears to be in mild distress secondary to pain. HEENT: Pupils are equal, round, and reactive to light. NECK: Supple. No JVD. LUNGS: Decreased breath sounds bilaterally. ABDOMEN: Soft and nontender. Some tenderness. EXTREMITIES: Trace edema. The patient has a left upper AV fistula with good bruit and thrill. DIAGNOSTIC DATA: Potassium 5.6, sodium 132, BUN of 99, creatinine 13.92, bicarb of 23, white count of 7.5, hemoglobin 11.2, platelet count 201. RADIOLOGY: T-spine CT shows: 1. Acute superior endplate compression fracture of T11 with approximately 20 percent height loss. 2. Right-sided pacemaker internal cardio defibrillator, atherosclerosis, cardiomegaly, moderate right-sided pleural effusion and small left pleural effusion. IMPRESSION AND PLAN: This is a 76-year-old woman presenting with: 1. Status post fall with T11 compression fracture. 2. Hyperkalemia and elevated BUN and creatinine consistent with end-stage renal disease and noncompliance. The patient missed dialysis session for 1 week due to her fall. 3. Hyperkalemia secondary to number 1. 4. Bilateral pleural effusion, right greater than 1, likely secondary to number 2. 5. History of coronary artery bypass. 6. Hypertension. 7. Hyperlipidemia. 8. Seven is bradycardia. The patient is on beta karmen. 9. Diabetes. 10. Anemia of chronic disease. PLAN: At this period of time, the patient will be admitted. We will do a stat HD today for hyperkalemia and elevated BUN and creatinine. The patient has already been admitted by Dr. Briceno, and the patient will be on pain control. We will follow the patient closely with you. GI and DVT prophylaxis. The rest of the treatment will depend on the patient's hospitalization course. Dictated By: MD MYRA Gillespie/diamond/wellington /Document#: [id number]
[2017-07-11] MEDS ORDERED: ACCU-CHEK XX SCH (02:00)
[2017-07-11] MEDS ORDERED: PANTOPRAZOLE (EC) 40 MG TAB PO SCH (06:00)
[2017-07-11 07:29] LABS: BASOPHIL # 0.1 10^3/ul (0.0-0.1); BASOPHILS % 0.7 % (0.0-2.0); EOSINOPHILS # 0.5 10^3/ul (0.0-0.5); EOSINOPHILS % 5.5 % (0.0-7.0); HEMATOCRIT 32.9 % (37.0-47.0); HEMOGLOBIN 10.7 g/dl (12.0-16.0); LYMPHOCYTES % 10.6 % (15.0-51.0); MEAN CORPUSCULAR HEMOGLOBIN 28.8 pg (29.0-33.0); MEAN CORPUSCULAR HGB CONC 32.5 g/dl (32.0-37.0); MEAN CORPUSCULAR VOLUME 88.4 fl (82.0-101.0); MEAN PLATELET VOLUME 10.2 fl (7.4-10.4); MONOCYTE # 0.8 10^3/ul (0.3-0.9); MONOCYTES % 9.2 % (0.0-11.0); NEUTROPHIL # 6.6 10^3/ul (1.6-7.5); NEUTROPHILS % 73.3 % (39.0-77.0); NUCLEATED RED BLOOD CELLS% 0.2 /100WBC (0.0-0.0); PLATELET COUNT 187 10^3/UL (140-415); RED BLOOD COUNT 3.72 10^6/ul (4.20-5.40); RED CELL DISTRIBUTION WIDTH 15.4 % (11.5-14.5)
[2017-07-11 08:04] LABS: ALBUMIN 3.7 g/dl (3.3-4.9); ALBUMIN/GLOBULIN RATIO 1.12; BILIRUBIN,INDIRECT 0.1 mg/dl (0-1.1); BILIRUBIN,TOTAL 0.1 mg/dl (0.2-1.3); CALCIUM 9.4 mg/dl (8.4-10.2); MAGNESIUM 2.1 mg/dl (1.7-2.5)
[2017-07-11 08:12] LABS: CREATININE 9.25 mg/dl (0.44-1.00)
[2017-07-11 08:13] LABS: POTASSIUM 3.9 mmol/L (3.5-5.1)
[2017-07-11 08:35] LABS: THYROID STIMULATING HORMONE 1.22 MIU/L (0.465-4.680)
[2017-07-11] MEDS ORDERED: LINAGLIPTIN 5 MG TABLET PO SCH (09:00)
[2017-07-11] MEDS ORDERED: ASPIRIN (EC) 81 MG TAB PO SCH (09:00)
[2017-07-11] MEDS ORDERED: SERTRALINE 50 MG TAB PO SCH (09:00)
[2017-07-11] MEDS: morphine 2 MG INJ IV PRN ×2 (09:00→15:12)
[2017-07-11] MEDS ORDERED: AMLODIPINE 5 MG TAB PO SCH (09:00)
[2017-07-11] MEDS: CALCIUM ACETATE 667 MG CAP PO SCH ×3 (09:02→17:43)
--- NOTE | 2017-07-11 12:19 | CONS ---
Date/Time of Note Date/Time of Note DATE: 07/11/17 TIME: 12:12 Assessment/Plan Assessment/Plan Chief Complaint/Hosp Course This is a 76-year-old woman presenting with: 1. Status post fall with T11 compression fracture. 2. Hyperkalemia and elevated BUN and creatinine consistent with end-stage renal disease and noncompliance. The patient missed dialysis session for 1 week due to her fall. K improved s/p HD 3 Bilateral pleural effusion, right greater than left , likely secondary to number 2. 5. History of coronary artery bypass. 6. Hypertension. 7. Hyperlipidemia. 8. Seven is bradycardia. The patient is on beta karmen. 9. Diabetes. 10. Anemia of chronic disease. Recs - s/p Good HD session yesterday with removal of 3 L , pt breathing comfortably and 02 sats 99% on RA and K 3.9 today - Next HD session on Monday - c/w Norvasc and Coreg - Pain control - PT - D/C planning per primary Problems: Consultation Date/Type/Reason Admit Date/Time Jul 10, 2017 at 15:57 Initial Consult Date Reason for Consultation Nephrology 24 HR Interval Summary Free Text/Dictation Pt feels a lot better today S/p HD with removal of 3 L Exam/Review of Systems Vital Signs Vitals Vital Signs Date Time Temp Pulse Resp B/P Pulse Ox O2 Delivery O2 Flow Rate FiO2 07/11/17 11:43 98.9 59 18 162/72 95 07/10/17 21:05 Room Air 07/10/17 15:44 21 Intake and Output 07/10/17 07/10/17 07/11/17 15:00 23:00 07:00 Intake Total 500 ml 240 ml Output Total 3500 ml Balance -3000 ml 240 ml Exam GENERAL: Awake, alert, oriented x4. HEENT: Pupils are equal, round, and reactive to light. NECK: Supple. No JVD. LUNGS: Decreased breath sounds bases bilaterally. ABDOMEN: Soft and nontender. . EXTREMITIES: Trace edema. The patient has a left upper AV fistula with good bruit and thrill. Results Result Diagram: 07/11/17 0641 07/11/17 0641 Results 24 hrs Laboratory Tests Test 07/10/17 13:50 07/10/17 13:56 07/10/17 16:02 07/11/17 01:45 Bedside Glucose 202 172 100 White Blood Count 7.5 Red Blood Count 3.83 L Hemoglobin 11.2 L Hematocrit 33.3 L Mean Corpuscular Volume 86.9 Mean Corpuscular Hemoglobin 29.2 Mean Corpuscular Hemoglobin Concent 33.6 Red Cell Distribution Width 14.6 H Platelet Count 201 Mean Platelet Volume 9.9 Neutrophils % 71.1 Lymphocytes % 13.8 L Monocytes % 6.7 Eosinophils % 6.8 Basophils % 1.1 Nucleated Red Blood Cells % 0.0 Neutrophils # 5.3 Lymphocytes # 1.0 Monocytes # 0.5 Eosinophils # 0.5 Basophils # 0.1 Nucleated Red Blood Cells # 0.0 Sodium Level 132 L Potassium Level 5.6 H Chloride Level 93 L Carbon Dioxide Level 23 Anion Gap 22 H Blood Urea Nitrogen 99 H Creatinine 13.92 H Glucose Level 208 Calcium Level 9.1 Total Bilirubin 0.0 L Direct Bilirubin 0.00 Indirect Bilirubin 0.0 Aspartate Amino Transf (AST/SGOT) 27 Alanine Aminotransferase (ALT/SGPT) 27 Alkaline Phosphatase 73 Total Protein 7.4 Albumin 3.9 Globulin 3.50 H Albumin/Globulin Ratio 1.11 Lipase 141 Test 07/11/17 06:41 07/11/17 08:44 White Blood Count 9.0 Red Blood Count 3.72 L Hemoglobin 10.7 L Hematocrit 32.9 L Mean Corpuscular Volume 88.4 Mean Corpuscular Hemoglobin 28.8 L Mean Corpuscular Hemoglobin Concent 32.5 Red Cell Distribution Width 15.4 H Platelet Count 187 Mean Platelet Volume 10.2 Neutrophils % 73.3 Lymphocytes % 10.6 L Monocytes % 9.2 Eosinophils % 5.5 Basophils % 0.7 Nucleated Red Blood Cells % 0.2 H Neutrophils # 6.6 Lymphocytes # 1.0 Monocytes # 0.8 Eosinophils # 0.5 Basophils # 0.1 Nucleated Red Blood Cells # 0.0 Sodium Level 142 Potassium Level 3.9 Chloride Level 103 # Carbon Dioxide Level 27 Anion Gap 16 Blood Urea Nitrogen 49 #H Creatinine 9.25 #H Glucose Level 67 #L Hemoglobin A1c 6.1 H Calcium Level 9.4 Magnesium Level 2.1 Total Bilirubin 0.1 L Direct Bilirubin 0.00 Indirect Bilirubin 0.1 Aspartate Amino Transf (AST/SGOT) 37 Alanine Aminotransferase (ALT/SGPT) 23 Alkaline Phosphatase 60 Total Protein 7.0 Albumin 3.7 Globulin 3.30 H Albumin/Globulin Ratio 1.12 Thyroid Stimulating Hormone (TSH) 1.220 Bedside Glucose 107 Medications Medications Current Medications Miscellaneous Information 1 ea NOTE XX ; Start 07/10/17 at 16:00 Glucagon (Glucagen) 1 mg Q15M PRN IM DECREASED GLUCOSE; Start 07/10/17 at 16:00 Lorazepam (Ativan) 0.5 mg Q8H PRN PO ANXIETY; Start 07/10/17 at 20:30 Ondansetron HCl (Zofran Inj) 4 mg Q6H PRN IV NAUSEA AND/OR VOMITING; Start at 20:30 Acetaminophen (Tylenol Tab) 650 mg Q6H PRN PO PAIN LEVEL 1-3 OR FEVER; Start at 20:30 Acetaminophen/ Hydrocodone Bitart ([place] (5/325)) 1 tab Q6H PRN PO PAIN LEVEL 4 -6; Start 07/10/17 at 20:30 Morphine Sulfate (morphine) 2 mg Q4H PRN IV PAIN LEVEL 7-10 Last administered on 07/11/17 09:00; Admin Dose 2 MG; Start 07/10/17 at 20:30 Zolpidem Tartrate (Ambien) 5 mg QHS PRN PO INSOMNIA; Start 07/10/17 at 20:30 Docusate Sodium (Colace) 100 mg Q12H PRN PO CONSTIPATION; Start 07/10/17 at 20: 30 Magnesium Hydroxide (Milk Of Mag) 30 ml DAILY PRN PO CONSTIPATION; Start at 20:30 Pantoprazole (Protonix Tab) 40 mg DAILY@06 PO Last administered on 07/11/17 06 :21; Admin Dose 40 MG; Start 07/11/17 at 06:00 Heparin Sodium (Porcine) (Heparin (5000 Units/0.5 ml)) 5,000 unit Q12 SC Last administered on 07/11/17 09:15; Admin Dose 5,000 UNIT; Start 07/10/17 at 21:00 Amlodipine Besylate (Norvasc) 5 mg DAILY PO Last administered on 07/11/17 09: 03; Admin Dose 5 MG; Start 07/11/17 at 09:00 Aspirin (Halfprin) 81 mg DAILY PO Last administered on 07/11/17 09:03; Admin Dose 81 MG; Start 07/11/17 at 09:00 Carvedilol (Coreg) 25 mg BID PO Last administered on 07/11/17 09:03; Admin Dose 25 MG; Start 07/10/17 at 21:00 Linagliptin (Tradjenta) 5 mg DAILY PO Last administered on 07/11/17 09:03; Admin Dose 5 MG; Start 07/11/17 at 09:00 Sertraline HCl (Zoloft) 50 mg DAILY PO Last administered on 07/11/17 09:03; Admin Dose 50 MG; Start 07/11/17 at 09:00 Diagnostic Test (Pha) (Accu-Chek) 1 ea 02 XX ; Start 07/11/17 at 02:00 Insulin Glargine (Lantus) 14 unit QHS SC Last administered on 07/11/17 02:11; Admin Dose 14 UNIT; Start 07/10/17 at 21:00 Miscellaneous Information 1 ea NOTE XX ; Start 07/10/17 at 21:30 Glucose (Glutose) 15 gm Q15M PRN PO DECREASED GLUCOSE; Start 07/10/17 at 21:30 Glucose (Glutose) 22.5 gm Q15M PRN PO DECREASED GLUCOSE; Start 07/10/17 at 21: 30 Dextrose (D50w Syringe) 25 ml Q15M PRN IV DECREASED GLUCOSE; Start 07/10/17 at 21:30 Dextrose (D50w Syringe) 50 ml Q15M PRN IV DECREASED GLUCOSE; Start 07/10/17 at 21:30 Glucose (Glutose) 15 gm Q15M PRN BUCCAL DECREASED GLUCOSE; Start 07/10/17 at 21 :30 JOSSE THOMAS MD Jul 11, 2017 12:19
--- NOTE | 2017-07-11 14:46 | PDOCDIS ---
Discharge Instructions CONDITION Patient Condition: Stable ACTIVITY: Activity Restrictions: Slowly Increase Activity FOLLOW UP/APPOINTMENTS Follow-up Plan follow up with pmd and continue her HD schedule, see prescription AIDA MORILLO MD Jul 11, 2017 14:46
[2017-07-11] MEDS ORDERED: MORP-72 PO (14:51)
[2017-07-11] MEDS ORDERED: LANT3I SC (14:51)
--- NOTE | 2017-07-11 19:46 | DS ---
DATE OF ADMISSION: 07/10/2017 DATE OF DISCHARGE: 07/11/2017 REASON FOR ADMISSION: Low back pain status post fall, hyperkalemia, missed hemodialysis. HOSPITAL COURSE: Patient is a 76-year-old female with a history of end-stage renal disease, left upper extremity AV fistula, hypertension, cardiomyopathy, congestive heart failure, status post AICD placement, diabetes mellitus, depression, dyslipidemia, coronary artery disease, status post CABG, 4 vessel disease in 2012 who sees as her automatic pattern edger. The patient presented to her doctor after she sustained a fall. She was prescribed [place] for back pain, but the pain was quite severe and she missed her dialysis. Now presents to the ER for evaluation. In the ER, she underwent multiple diagnostic tests including a thoracic spine CT scan which showed acute superior endplate compression fracture of T11 with approximately 20 percent loss of height. No or fracture fragment. Number of diffuse idiopathic skeletal high hyperostosis noted with right-sided permanent pacemaker, internal cardiac defibrillator, atherosclerosis, cardiomegaly and moderate right pleural effusion and small left pleural effusion. The patient underwent a lumbar spine x-ray, CT scan, which shows spondylitic changes as described. There is atherosclerosis, ascites and no acute fracture. Because of these findings, the patient's labs which revealed hyperkalemia with a potassium of 5.6, an elevated BUN and creatinine of 99/13.9, it was decided to admit her for dialysis and manage her pain. During her stay the patient underwent hemodialysis and she was seen by the physical therapist. The patient overall is able to ambulate with a walker so it is recommended to continue with the assist once medically appropriate. Patient overall can be discharged with the home meds. She said with the [place] it causes pruritus, so I prescribed morphine for T11 compression fracture. DISCHARGE MEDICATIONS: Patient was discharged with: 1. Morphine sulfate 15 mg, 1 tab q.4h p.r.n. for severe pain. 2. Amlodipine 5 mg daily. 3. Aspirin 81 daily. 4. Calcium acetate 667 t.i.d. 5. Coreg 25 b.i.d. 6. Lasix 40 daily. 7. Tradjenta 5 mg daily. 8. Sertraline 50 mg daily. 9. Ambien 10 mg q.h.s. p.r.n. insomnia. 10. Insulin Lantus. I think she takes too much of insulin, so I lowered the Lantus from 40 to 10 units and also instructed her to make sure that is the dose she needs to take with her doctor. The patient is to follow up with her primary care doctor within a week. FINAL DIAGNOSES: 1. Low back pain. T11 compression fracture. 2. Low back pain. 3. End-stage renal disease. 4. Hyperkalemia. Missed dialysis. 5. Hypertension. 6. Anemia of chronic disease. 7. Cardiomyopathy. 8. Coronary artery disease, status post coronary artery bypass grafting. 9. Dyslipidemia. 10. Diabetes mellitus. 11. Anxiety disorder. Patient was discharged in fair condition as she was cleared by Physical therapy to be discharged. Next dialysis is due on Monday. If any change in condition to call 911 or go to the nearest emergency department. I did offer the patient to be discharged with home health for physical therapy, but patient declined. She said she has a walker that she can use. The patient was discharged today. Dictated By: Bradley Briceno MD /diamond/ /Document#: [id number]
== END 2017-07-11 18:04 | disposition home or self-care (01) ==
LOC: E/R 12:05 → INTOOBSV 15:57 → TEL 15:57
PROVIDERS: ADMIT Internal Medicine; ATTEND Internal Medicine
DX: S22.089A Unspecified fracture of T11-T12 vertebra, initial encounter for closed fracture (principal); M54.5 Low back pain; I13.2 Hypertensive heart and chronic kidney disease with heart failure and with stage 5 chronic kidney disease, or end stage renal disease; I50.9 Heart failure, unspecified; E11.22 Type 2 diabetes mellitus with diabetic chronic kidney disease; N18.6 End stage renal disease; Z99.2 Dependence on renal dialysis; Z79.4 Long term (current) use of insulin; D63.8 Anemia in other chronic diseases classified elsewhere; I42.9 Cardiomyopathy, unspecified; I25.10 Atherosclerotic heart disease of native coronary artery without angina pectoris; Z95.1 Presence of aortocoronary bypass graft; E87.5 Hyperkalemia; E78.5 Hyperlipidemia, unspecified; F41.9 Anxiety disorder, unspecified; Z95.810 Presence of automatic (implantable) cardiac defibrillator; Z79.82 Long term (current) use of aspirin; Z91.048 Other nonmedicinal substance allergy status; Z87.891 Personal history of nicotine dependence; W19.XXXA Unspecified fall, initial encounter; Y93.9 Activity, unspecified; Y99.9 Unspecified external cause status; Y92.9 Unspecified place or not applicable; Z82.49 Family history of ischemic heart disease and other diseases of the circulatory system
CPT/HCPCS: 72128; 72131; 80053; 82962; 83036; 83690; 83735; 84443; 85025; 90935; 93005; 94664; 96372; 97162; G0378; J1644; J1815; J2270; J2405; 36415; 96374; 96375; 99217

== ENCOUNTER 2017-11-28 23:21 | Inpatient (IN) | END 2017-11-30 20:15 | disposition home or self-care (01) | DRG 683 ==

== ENCOUNTER 2018-12-07 07:53 | Inpatient (IN) | payer MEDICARE, MEDICAID ==
[2018-12-07] VITALS (22 sets, daily range): BP systolic 109–161; BP diastolic 55–82; PULSE 54–85; RESP 16–18; Ht 157.5 cm; Wt 72.9 kg
[~2018-12-07] VITALS: Ht 157.5 cm; Wt 72.9 kg
[~2018-12-07 07:53] MED LIST changes: -AMLO2.5T78 PO; +AMLO5TAB4 PO; -ASPI-664 PO; +ASPI81TA52 PO; +CARV25TA79 PO; -DONE10TA7 PO; +ESCI10TA48 PO; -FER325 PO; -FOLI-49 PO; +FURO40TA4 PO; +HYDR-3672 PO; -METO-448 PO; +MORP-72 PO; +MULT-105 PO; +OXYC-438 PO; -PANT40TA4 PO; +SERT50TA6 PO; -SODI15OR8 PO; +omegaXL ORAL
[2018-12-07] MEDS ORDERED: NITROGLYCERIN 2% 1 GM OINT PKT TD STA (07:56)
[2018-12-07] MEDS ORDERED: ONDANSETRON 4 MG INJ IV STA (07:56)
[2018-12-07] MEDS ORDERED: morphine 4 MG/ML VIAL IV STA (07:56)
[2018-12-07] MEDS ORDERED: NITROGLYCERIN (SL) 0.4 MG TAB SL PRN (08:00)
[2018-12-07] MEDS ORDERED: INSULIN REGULAR, HUMAN 100 UNIT/1 ML 3ML VIAL IVP STA (08:39)
[2018-12-07] MEDS ORDERED: ALBUTEROL 0.5% (NEB) 2.5 MG/0.5 ML AMP INH STA (08:39)
[2018-12-07] MEDS ORDERED: CA CHLORIDE 10% 10 ML SYRINGE IV STA (08:39)
[2018-12-07] MEDS ORDERED: NA POLYST SULFON 15 GM/60 ML BTL PO STA (08:39)
[2018-12-07] MEDS ORDERED: NA BICARBONATE 8.4% 50 ML SYG IV STA (08:39)
[2018-12-07] MEDS ORDERED: SODIUM POLYSTYRENE 15 GM KIT (POWDER + SORBITOL) PO ONE (09:00)
[2018-12-07] MEDS: DEXTROSE 50% 50 ML SYRINGE IV PRN ×2 (09:09→09:53)
[2018-12-07] MEDS ORDERED: ACETAMINOPHEN 325 MG TAB PO PRN (09:30)
[2018-12-07] MEDS ORDERED: ONDANSETRON 4 MG INJ IV PRN ×2 (09:30→13:00)
[2018-12-07] MEDS ORDERED: DIPHENHYDRAMINE 50 MG INJ IV ONE (10:00)
[2018-12-07] MEDS ORDERED: SOD CHLORIDE 0.9% 1,000 ML IV PRN (10:30)
--- NOTE | 2018-12-07 11:47 | CONS ---
Assessment/Plan Assessment/Plan Hospital Course (Demo Recall) 1. Hyperkalemia, likely secondary to noncompliance with her dialysis sessions. 2. End-stage renal disease on hemodialysis Monday and Monday, noncompliant with dialysis sessions. She SKIPPED Monday AND TODAY 3. Obesity 4. Hypertension. 5. History of diabetes mellitus type II. 6. Hx of noncompliance, pt was 1 week ago in hospital with similar condition 7. Bradycardia, likely could be secondary to hyperkalemia. 8. History of coronary artery bypass. 9. History of recent T11 fracture. 10. Hypocalcemia Assessment/Plan (Daily) - stat HD -social research assistant to follow noncompliance. -avoid nephrotoxic drugs Consultation Date/Type/Reason Admit Date/Time Dec 07, 2018 at 09:12 Initial Consult Date 12/07/2018 Type of Consult nephrology Reason for Consultation Dr Rivas Date/Time of Note DATE: 12/07/18 TIME: 11:44 24 HR Interval Summary Free Text/Dictation diarrhea Exam/Review of Systems Exam Vitals Vital Signs Date Temp Pulse Resp B/P (MAP) Pulse Ox O2 O2 Flow FiO2 Time Delivery Rate 12/07/18 98.3 58 17 151/67 97 11:11 (95) 12/07/18 Room Air 2.0 10:36 Constitutional: alert, oriented Respiratory: clear to auscultation Cardiovascular: regular rate and rhythm Gastrointestinal: soft Genitourinary - Female: CVA tenderness; No nl adnexae, No nl external genitalia, No CMT, No uterus, No other Skin: other (itching all over) Results Result Diagram: 12/07/18 0757 12/07/18 0757 Results 24hrs Laboratory Tests Test 12/07/18 07:57 12/07/18 08:56 12/07/18 09:44 12/07/18 10:27 White Blood Count 10.5 # Red Blood Count 4.70 Hemoglobin 13.3 Hematocrit 40.8 # Mean Corpuscular 86.8 Volume Mean Corpuscular 28.3 L Hemoglobin Mean Corpuscular 32.6 Hemoglobin Concent Red Cell 14.5 Distribution Width Platelet Count 289 Mean Platelet Volume 10.5 H Immature 0.500 H Granulocytes % Neutrophils % 73.8 Lymphocytes % 13.3 L Monocytes % 10.3 Eosinophils % 1.0 Basophils % 1.1 Nucleated Red Blood 0.2 H Cells % Immature 0.050 H Granulocytes # Neutrophils # 7.7 H Lymphocytes # 1.4 Monocytes # 1.1 H Eosinophils # 0.1 Basophils # 0.1 Nucleated Red Blood 0.0 Cells # Sodium Level 135 Potassium Level 8.3 *H Chloride Level 96 L Carbon Dioxide Level 13 L Anion Gap 26 H Blood Urea Nitrogen 86 H Creatinine 13.32 H Est Glomerular Filtrat Rate mL/min Glucose Level 98 Calcium Level 7.9 L Troponin I 0.058 Bedside Glucose 90 55 L 185 Medications Medication Current Medications Nitroglycerin (Nitroglycerin (Sl Tab) 0.4 Mg) 1 tab Q5M UP TO 3 DOSES PRN SL .CHEST PAIN Last administered on 12/07/18at 08:23; Admin Dose 1 TAB; Start 12/07/18 at 08:00 Dextrose (D50w Syringe) ONCE PRN IV DECREASED GLUCOSE Last administered on 12/07/18at 09:53; Admin Dose 100 ML; Start 12/07/18 at 09:00 Ondansetron HCl (Zofran Inj) 4 mg ER BRIDGE PRN IV NAUSEA/VOMITING; Start at 09:30; Stop 12/08/18 at 09:29 Acetaminophen (Tylenol Tab) 650 mg ER BRIDGE PRN PO .MILD PAIN 1-3 OR TEMP; Start 12/07/18 at 09:30; Stop 12/08/18 at 09:29 Sodium Chloride 1,000 ml @ 0 mls/hr Q0M PRN IV TO KEEP SBP ABOVE 90; Start 12/07/18 at 10:30 LIZABETH DAVIS Dec 07, 2018 11:47
[2018-12-07] MEDS ORDERED: LORAZEPAM 0.5 MG TAB PO PRN (13:00)
[2018-12-07] MEDS ORDERED: NACL 0.9% 3 ML SYG IV SCH (13:00)
[2018-12-07] MEDS ORDERED: OXYCODONE/ACETAMINOPHEN (5/325) TAB PO PRN (13:00)
[2018-12-07] MEDS ORDERED: ZOLPIDEM 5 MG TAB PO PRN (13:00)
--- NOTE | 2018-12-07 13:03 | ERD ---
ER Documentation Chief Complaint Chief Complaint BIB [id number]. CP X 2 DAYS. FROM FALL IN BATHROOM. HPI Patient is a 78-year-old female with coronary disease, hypertension, diabetes, and dialysis who presents for pain. The patient was brought in by ambulance. She had a fall in the bathroom 3 days ago and has bilateral flank pain. She also has chest pain shortness of breath which comes and goes. Paramedics said that she was a possible STEMI based on their EKGs. She was given aspirin nitroglycerin. Upon review of old medical records the patient has multiple visits for various complaints. ROS All systems reviewed and are negative except as per history of present illness. Medications Home Meds Active Scripts Morphine Sulfate* (Oramorph SR*) 15 Mg Tablet.sa, 15 MG PO Q12, #30 TAB.SA Prov:AIDA BRICENO MD 07/11/17 Linagliptin (TRADJENTA) 5 Mg Tablet, 5 MG PO DAILY for 30 Days, TAB Prov:AIDA BRICENO MD 01/02/17 Zolpidem Tartrate* (Ambien*) 10 Mg Tablet, 10 MG PO QHS PRN for INSOMNIA for 30 Days, TAB Prov:AIDA BRICENO MD 01/02/17 Calcium Acetate* (Calcium Acetate*) 667 Mg Capsule, 667 MG PO TID for 30 Days, CAP Prov:AIDA BRICENO MD 01/02/17 Reported Medications Escitalopram Oxalate* (Escitalopram Oxalate*) 10 Mg Tablet, 10 MG PO DAILY, #30 TAB 11/28/17 [omegaXL] No Conflict Check, 2 CAP ORAL DAILY for supplement for 30 Days 11/28/17 Multivitamin with Minerals (Multivitamins with Minerals) 1 Each Tablet, 1 EACH PO, TAB 11/28/17 Oxycodone HCl/Acetaminophen (Oxycodone-Acetaminophen 5-325) 1 Each Tablet, 1 E ACH PO, TAB 11/28/17 Hydralazine Hcl* (Hydralazine Hcl*) 50 Mg Tab, 50 MG PO QID, #120 TAB 11/28/17 Sertraline Hcl* (Sertraline Hcl*) 50 Mg Tablet, 50 MG PO DAILY, #30 TAB 07/10/17 Carvedilol* (Carvedilol*) 25 Mg Tablet, 25 MG PO BID, #60 TAB 07/10/17 Amlodipine Besylate* (Norvasc*) 5 Mg Tablet, 5 MG PO DAILY, TAB 07/10/17 Furosemide* (Furosemide*) 40 Mg Tablet, 40 MG PO DAILY, TAB 07/10/17 Aspirin (Low Dose Aspirin) 81 Mg Tablet.dr, 81 MG PO DAILY 03/02/15 Allergies Allergies: Coded Allergies: No Known Drug Allergies (Unverified Allergy, Unknown, 11/28/17) Uncoded Allergies: PLASTIC TAPE (Adverse Reaction, Mild, ITCHING, 07/10/17) PMhx/Soc History of Surgery: Yes (CABG, appendectomy, av shunt placement) Anesthesia Reaction: No Hx Neurological Disorder: No Hx Respiratory Disorders: No Hx Cardiac Disorders: Yes (HTN, cardiomyopathy, CHF, AICD, CKD on HD) Hx Psychiatric Problems: Yes (Depression, anxiety) Hx Miscellaneous Medical Probl: Yes (dyslipidemia, anemia) Hx Alcohol Use: No Hx Substance Use: No Hx Tobacco Use: No Smoking Status: Never smoker FmHx Family History: coronary disease Physical Exam Vitals Vital Signs Date Temp Pulse Resp B/P (MAP) Pulse Ox O2 O2 Flow FiO2 Time Delivery Rate 12/07/18 2.0 09:08 12/07/18 104 19 96 Nasal 2.0 09:08 Cannula 12/07/18 58 14 112/56 99 Room Air 08:41 (74) 12/07/18 98.4 69 16 130/90 92 07:55 (103) Physical Exam Const: Moderate distress Head: Atraumatic Eyes: Normal Conjunctiva ENT: Normal External Ears, Nose and Mouth. Neck: Full range of motion. No meningismus. Resp: Clear to auscultation bilaterally Cardio: Bradycardia cardiac rate with normal rhythm Abd: Soft, non tender, non distended. Normal bowel sounds Skin: No petechiae or rashes Back: No midline or flank tenderness Ext: No cyanosis, or edema Neur: Awake and alert Psych: Normal Mood and Affect Result Diagram: 12/07/18 0757 12/07/18 0757 Results 24 hrs Laboratory Tests Test 12/07/18 07:57 12/07/18 08:56 White Blood Count 10.5 10^3/ul Red Blood Count 4.70 10^6/ul Hemoglobin 13.3 g/dl Hematocrit 40.8 % Mean Corpuscular Volume 86.8 fl Mean Corpuscular Hemoglobin 28.3 pg Mean Corpuscular Hemoglobin Concent 32.6 g/dl Red Cell Distribution Width 14.5 % Platelet Count 289 10^3/UL Mean Platelet Volume 10.5 fl Immature Granulocytes % 0.500 % Neutrophils % 73.8 % Lymphocytes % 13.3 % Monocytes % 10.3 % Eosinophils % 1.0 % Basophils % 1.1 % Nucleated Red Blood Cells % 0.2 /100WBC Immature Granulocytes # 0.050 10^3/ul Neutrophils # 7.7 10^3/ul Lymphocytes # 1.4 10^3/ul Monocytes # 1.1 10^3/ul Eosinophils # 0.1 10^3/ul Basophils # 0.1 10^3/ul Nucleated Red Blood Cells # 0.0 10^3/ul Sodium Level 135 mmol/L Potassium Level 8.3 mmol/L Chloride Level 96 mmol/L Carbon Dioxide Level 13 mmol/L Anion Gap 26 Blood Urea Nitrogen 86 mg/dl Creatinine 13.32 mg/dl Est Glomerular Filtrat Rate mL/min mL/min Glucose Level 98 mg/dl Calcium Level 7.9 mg/dl Troponin I 0.058 ng/ml Bedside Glucose 90 mg/dL Current Medications Medications Dose Sig/Lety Start Time Status Last (Trade) Ordered Route PRN Stop Time Admin Dose Reason Admin 1 inch ONCE STAT 12/07/18 DC 12/07/18 Nitroglycerin TD 07:56 08:24 12/07/18 07:57 (Nitroglyceri n 2% Oint) 1 tab Q5M UP TO 3 12/07/18 12/07/18 Nitroglycerin DOSES PRN 08:00 08:23 SL .CHEST (Nitroglyceri PAIN n (Sl Tab) 0.4 Mg) Morphine 4 mg ONCE STAT 12/07/18 DC 12/07/18 Sulfate IV 07:56 08:23 (morphine) 12/07/18 07:57 Ondansetron 4 mg ONCE STAT 12/07/18 DC 12/07/18 HCl (Zofran IV 07:56 08:23 Inj) 12/07/18 07:57 Sodium 30 gm ONCE STAT 12/07/18 DC Polystyrene PO 08:39 Sulfonate 12/07/18 08:41 (Kayexalate) Albuterol 15 mg ONCE STAT 12/07/18 DC 12/07/18 (Proventil INH 08:39 09:07 0.5% (Neb)) 12/07/18 08:41 Sodium 50 ml ONCE STAT 12/07/18 DC 12/07/18 Bicarbonate IV 08:39 09:10 (Na Bicarb 12/07/18 08:41 8.4% Syg) Calcium 1,000 mg ONCE STAT 12/07/18 DC 12/07/18 Chloride IV 08:39 09:10 (Ca Chloride 12/07/18 08:41 10% Syg) Insulin 10 unit ONCE STAT 12/07/18 DC 12/07/18 Human IVP 08:39 09:11 Regular 12/07/18 08:41 (Humulin R) Dextrose ONCE PRN 12/07/18 12/07/18 (D50w IV DECREASED 09:00 09:53 Syringe) GLUCOSE Sodium 30 gm ONCE ONCE 12/07/18 DC 12/07/18 Polystyrene PO 09:00 09:11 Sulfonate 12/07/18 09:03 (Kayexelate 15 Gm Kit (Powder+Sorbi nia)) Procedures/MDM EKG #1 read by me: Rate/Rhythm: Atrial fibrillation with slow ventricular response Intervals: Normal Impression: A. fib with bradycardia without ST elevations, left bundle branch block with negative Sgarbossa criteria EKG #2 read by me: Rate/Rhythm: Atrial fibrillation with slow ventricular response Intervals: Normal Impression: A. fib with bradycardia without ST elevations, left bundle branch block with negative Sgarbossa criteria EKG #3 read by me: Rate/Rhythm: Atrial fibrillation with slow ventricular response Intervals: Normal Impression: A. fib with bradycardia without ST elevations, left bundle branch block with negative Sgarbossa criteria Chest x-ray read by radiology. CT abdomen pelvis read by radiology. Patient is a 78-year-old female who presents for chest pain and flank pain. The patient was found to have life-threatening hyperkalemia with a potassium of 8.3. She was treated with insulin, glucose, Kayexalate, bicarbonate, albuterol, and calcium chloride. The patient will be admitted to a telemetry bed. The patient will be admitted to the care of Dr. Briceno who has admitted her before and is the primary doctor. I spoke with Dr. Blackwood who will see the patient in consultation for dialysis. Critical Care: Time: 35 minutes excluding all billable procedures. Treatments/Evaluations: Close monitoring and treatment of unstable vital signs, cardiorespiratory, and neurologic status, while maintaining tight balance of fluid, respiratory, and cardiac interventions. Departure Diagnosis: Primary Impression: Hyperkalemia Additional Impressions: Bradycardia Chest pain Chest pain type: unspecified Qualified Codes: R07.9 - Chest pain, unspecified Condition: Serious MIN ARORA MD Dec 07, 2018 13:03
--- NOTE | 2018-12-07 13:27 | HP ---
DATE OF ADMISSION: 12/07/2018 REASON FOR ADMISSION: Chest pain, shortness of breath, severe hyperkalemia, missed hemodialysis. HISTORY OF PRESENT ILLNESS: The patient is a 78-year-old female very well known to me with history of end-stage renal disease, receives dialysis only twice a week on Monday and Monday under th e care of Dr. Ren Mooney. The patient has a left upper extremity AV fistula, hypertension, cardiom yopathy, CHF, status post AICD placement, also history of diabetes mellitus, depression, dyslipidemia , coronary artery disease, status post CABG, 4-vessel disease in 2012. The patient states that she m issed her dialysis on Monday and her last dialysis was last Monday. The patient now presents to the emergency department complaining of chest discomfort with associated shortness of breath. In the ER, they are concerned about an acute SC but labs revealed severe hyperkalemia with potassium of 8.3, BU N is 86, creatinine is 13.3. The patient received multiple medications including D50 with insulin, a lbuterol, sodium bicarbonate, Kayexalate of 2 dosages and the contact representative, Dr. Ren Mooney, was con sulted urgently to initiate dialysis. Dialysis orders were already placed and the patient is awaitin g currently dialysis. The patient is now having diarrhea from the above treatment but also reports h aving loose stools for the past 2 weeks. Otherwise, denies any fever or chills. Denies any one-side d weakness, et cetera. The patient is admitted to telemetry unit for further medical management. PAST MEDICAL HISTORY: Includes end-stage renal disease, cardiomyopathy status post AICD placement, C ABG, hypertension, dyslipidemia, diabetes mellitus, anxiety disorder. PAST SURGICAL HISTORY: Appendectomy, multiple AV fistulas in the left upper extremity, Bakari robert ter placement, CABG. SOCIAL HISTORY: She stopped smoking more than 30 years ago, but smoked heavily. Alcohol was also st opped 30 years ago. She used to drink heavily. IV drug abuse was none. FAMILY HISTORY: Mother from heart disease. Father from multiorgan failure. ALLERGIES: TAPE; OTHERWISE NO KNOWN DRUG ALLERGIES. HOME MEDICATIONS: Reviewed. They include the followin. Amlodipine 5 mg daily. 2. Aspirin 81 mg daily. 3. Calcium acetate 667 t.i.d. 4. Coreg 25 b.i.d. 5. Lexapro 10 mg daily. 6. Lasix 40 mg daily. 7. Hydralazine 50 mg q.i.d. 8. Tradjenta 5 mg daily. 9. Morphine sulfate extended release 15 mg b.i.d. 10. Oxycodone p.r.n. for pain. 11. Sertraline 50 mg daily. 12. Ambien 10 mg at bedtime p.r.n. for insomnia. 13. Multivitamin with mineral as directed. 14. [address] XL daily. The patient's family is at bedside. Case was discussed. PHYSICAL EXAMINATION: VITAL SIGNS: Blood pressure 151/67, pulse 54, respirations 17, temperature 98.3, saturation is 97% o n 2 liters. GENERAL: The patient is in no acute distress. HEENT: Normocephalic, atraumatic. This patient is pale. NECK: JVD is probably like 7 cm. CARDIOVASCULAR: S1 and S2. LUNGS: Faint rhonchi at the bases. Mid scar in the chest. SKIN: She has AV fistula in the left upper extremity. ABDOMEN: Soft, slightly distended. EXTREMITIES: There is no clubbing, cyanosis or edema. LABORATORY DATA: White count is 10.5, hemoglobin 13.3, hematocrit 41, platelet count is 289, neutrop hils 74%, lymphs 13%. Chemistry: Sodium 135, potassium 8.3, chloride 96, bicarbonate 13, BUN is 86, creatinine is 13.3 and glucose of 98. Last glucose of 185. Troponin 0.058. Calcium 7.9. DIAGNOSTIC DATA: Chest x-ray shows low lung volumes with hazy opacities in the lung which could repr esent subsegmental atelectasis, pulmonary edema versus interstitial pneumonia, enlarged cardiac silho uette unchanged. The patient's CT scan of the abdomen and pelvis reveals mild atelectasis at the sommer g bases posteriorly, cardiomegaly, previous CABG, permanent pacemaker, internal cardiac defibrillator , very small bilateral pleural effusion, hepatomegaly and possible cirrhosis, bilateral atrophic kidn eys, atherosclerosis, large amount of ascites, degenerative changes of the spine, compression fractur e of T11 vertebral, age undetermined; otherwise unremarkable noncontrast CT scan of the abdomen and p jp. ASSESSMENT AND PLAN: This is a 78-year-old overweight female with history of end-stage tomy l disease, coronary artery disease, status post CABG, diabetes mellitus, hypertension, presented with chest pain with associated shortness of breath. The patient is seen for hemodialysis, was found to have severe hyperkalemia and fluid overload state. 1. Respiratory. Dialysis for fluid removal. O2 support as needed. Chest x-ray likely represents p ulmonary edema. The patient definitely needs to have dialysis at least twice a week if not more. 2. Cardiovascular. Titrate blood pressure medication up as needed. The patient is to be placed on deep venous thrombosis prophylaxis with heparin. 3. End-stage renal disease. Again dialysis to be done urgently today. Monitor electrolytes. 4. Gastrointestinal. The patient will be placed on Protonix for gastrointestinal prophylaxis. Asci monique is noted, likely due to possible cardiac ascites, may consider paracentesis. The patient may hav e also liver cirrhosis due to previous alcohol use or fatty liver disease. We will check alpha fetop rotein and we will follow. Weight loss is definitely advised. 5. History of back pain with history of T11 compression fracture. Pain control is being provided. 6. Diarrhea. Send stool for blood culture and Clostridium difficile. 7. Diabetes. Diabetes has been controlled. She has been on Tradjenta. Check Accu-Cheks while in-h ouse and insulin as needed. 8. Anemia. Monitor H and H. Currently, no need for transfusion. Case was discussed with family at bedside. We will follow closely. Dictated By: AIDA PARRY/KIM Conf#: [id number] DID#: [id number] CC: REN MOONEY MD;*EndCC*
[2018-12-07] MEDS ORDERED: GLUCOSE GEL 15 GRAM TUBE BUCCAL PRN (13:30)
[2018-12-07] MEDS ORDERED: morphine 2 MG INJ IV PRN (13:30)
[2018-12-07] MEDS ORDERED: GLUCOSE GEL 15 GRAM TUBE PO PRN ×2 (13:30)
[2018-12-07] MEDS ORDERED: GLUCAGON 1 MG INJ IM PRN (13:30)
[2018-12-07] MEDS ORDERED: DEXTROSE 50% 50 ML SYRINGE IV PRN ×2 (13:30)
[2018-12-07] MEDS ORDERED: CALCIUM ACETATE 667 MG CAP PO SCH (14:00)
[2018-12-07] MEDS ORDERED: LINAGLIPTIN 5 MG TABLET PO SCH (14:00)
[2018-12-07] MEDS ORDERED: HEPARIN 5,000 UNIT/1 ML VIAL SC SCH (14:00)
[2018-12-07] MEDS ORDERED: ESCITALOPRAM 10 MG TAB PO SCH (14:00)
[2018-12-07] MEDS ORDERED: AMLODIPINE 5 MG TAB PO SCH (14:00)
[2018-12-07] MEDS ORDERED: morphine (ER) 15 MG TAB PO SCH (14:00)
[2018-12-07] MEDS ORDERED: PANTOPRAZOLE (EC) 40 MG TAB PO SCH (14:00)
[2018-12-07] MEDS ORDERED: SERTRALINE 50 MG TAB PO SCH (14:00)
[2018-12-07] MEDS ORDERED: ASPIRIN (EC) 81 MG TAB PO SCH (14:00)
[2018-12-07] MEDS: DIPHENHYDRAMINE 50 MG INJ IV PRN (15:20)
[2018-12-07] MEDS: PANTOPRAZOLE (EC) 40 MG TAB PO SCH (17:22)
[2018-12-07] MEDS: CALCIUM ACETATE 667 MG CAP PO SCH (17:22)
[2018-12-07] MEDS: LINAGLIPTIN 5 MG TABLET PO SCH (17:23)
[2018-12-07] MEDS: ESCITALOPRAM 10 MG TAB PO SCH (17:23)
[2018-12-07] MEDS: SERTRALINE 50 MG TAB PO SCH (17:23)
[2018-12-07] MEDS: AMLODIPINE 5 MG TAB PO SCH (17:33)
[2018-12-07] MEDS: HEPARIN 5,000 UNIT/1 ML VIAL SC SCH (17:34)
[2018-12-07] MEDS: morphine (ER) 15 MG TAB PO SCH (17:36)
[2018-12-07] MEDS: INSULIN ASPART [NOVOLOG] 3 ML PEN SC SCH ×2 (17:39→21:00)
[2018-12-07] MEDS: SODIUM POLYSTYRENE 15 GM KIT (POWDER + SORBITOL) PO SCH ×2 (22:30→23:35)
--- NOTE | 2018-12-07 23:17 | CONS ---
DATE OF ADMISSION: 12/07/2018 DATE OF CONSULTATION: 12/07/2018 REASON FOR ADMISSION: Chest pain, weakness, dizziness. HISTORY OF PRESENTING ILLNESS: This is a 78-year-old female with a past medical history of end-stage renal disease on hemodialysis, receiving hemodialysis Monday, Monday; hypertension; cardiom yopathy; CHF status post AICD; history of diabetes; depression; dyslipidemia; status post CABG, who p resented to the emergency department after she was feeling weak, dizzy. According to the patient, jonn oates was feeling sick on Monday, missed her dialysis session. Her last dialysis was on Monday. She pre sented to the emergency department complaining of feeling weak, tired. Apparently, she also had fall s at home. In the ER, patient had labs that showed BUN of 86, potassium 8.3, creatinine 13.3. The patient recei izabela multiple medications: D50, insulin, albuterol, sodium bicarbonate and Kayexalate, and patient wa s admitted for urgent dialysis. PAST MEDICAL HISTORY: 1. End-stage renal disease on hemodialysis, Monday and Monday. 2. Cardiomyopathy status post AICD. 3. CABG. 4. Hypertension. 5. Dyslipidemia. 6. Diabetes. 7. Anxiety disorder. PAST SURGICAL HISTORY: 1. Multiple AV fistulas of the left upper extremity. 2. Bakari. 3. CABG. 4. Appendectomy. SOCIAL HISTORY: Stopped smoking 30 years ago. Denies any IV drug use. FAMILY HISTORY: Mother from heart disease. Father from multiorgan failure. ALLERGIES: NONE. HOME MEDICATIONS: 1. Amlodipine 5. 2. Calcium acetate 667 t.i.d. 3. Aspirin 81. 4. Coreg 25 b.i.d. 5. Lexapro. 6. Lasix 40. 7. Hydralazine. 8. Tradjenta. 9. Morphine. 10. Oxycodone. 11. Sertraline. 12. Ambien. 13. Multivitamin. REVIEW OF SYSTEMS: The patient complained of generalized body ache, muscle ache, diarrhea. Denies a ny headache, any blurry vision and also complained of some dizziness. The patient was also having so me diarrhea. Denies any chest pain. Denies any shortness of breath. Denies any focal neurological deficit. PHYSICAL EXAMINATION: VITAL SIGNS: Blood pressure 151/67, pulse 54, respirations 17, temp afebrile, saturating 97%. GENERAL: The patient is awake, alert, oriented, in no acute distress. HEENT: Pupils equal, round, reactive to light. NECK: Supple. No JVD. HEART: Regular rate and rhythm. LUNGS: Decreased breath sounds at the bases. ABDOMEN: Soft, nontender, slightly distended. Positive bowel sounds. EXTREMITIES: No clubbing, cyanosis or edema. DIAGNOSTIC DATA: Show labs of sodium of 135, potassium of 8.3, bicarb of 13, BUN of 86 and creatinin e of 13.32. White count 10.5, hemoglobin 13.3, platelet count 289. Chest x-ray shows low lung volumes, hazy opacity which represent pulmonary edema with interstitial ed jolene. CT of the abdomen and pelvis showed: 1. Mild atelectasis. 2. Cardiomegaly. 3. Previous CABG. 4. Bilateral effusions. 5. Atherosclerosis. 6. Large amount of ascites. 7. Compression fracture of T11 vertebra. ASSESSMENT: This is a 78-year-old female who presented with: 1. Severe hyperkalemia likely secondary to noncompliance with her dialysis session/diet. Need to al so rule out rhabdomyolysis status post fall. 2. Severe metabolic acidosis likely secondary to missing dialysis session/diarrhea. 3. Shortness of breath, chest pain likely secondary to congestive heart failure. 4. History of fall. 5. Diarrhea. Need to rule out for Clostridium difficile. 6. History of back pain with a history of T11 compression fracture. 7. Diabetes. 8. Anemia. 9. History of coronary artery disease. PLAN: At this period of time, patient is admitted to telemetry. The patient is receiving stat hemod ialysis. We will use 1 K bath. The patient was explained about her compliance with the dialysis ses mary, low-K diet. We will repeat the potassium 3 hours after hemodialysis today. The rest of the tr eatment will depend on the patient's hospitalization course. Dictated By: JOSSE RENTERIA/KIM Conf#: [id number] DID#: [id number] CC: AIDA MORILLO MD;*EndCC*
[2018-12-08] VITALS (31 sets, daily range): BP systolic 100–153; BP diastolic 48–72; PULSE 53–72; RESP 15–19
[2018-12-08] MEDS: SODIUM POLYSTYRENE 15 GM KIT (POWDER + SORBITOL) PO SCH (01:00)
[2018-12-08] MEDS: ACCU-CHEK XX SCH (02:00)
[2018-12-08] MEDS: DIPHENHYDRAMINE 50 MG INJ IV PRN (02:28)
[2018-12-08] MEDS: PANTOPRAZOLE (EC) 40 MG TAB PO SCH (06:14)
[2018-12-08] MEDS ORDERED: NALOXONE (0.4 MG/ML) INJ ONE (07:00)
[2018-12-08] MEDS: INSULIN ASPART [NOVOLOG] 3 ML PEN SC SCH ×4 (07:58→21:00)
[2018-12-08] MEDS: CALCIUM ACETATE 667 MG CAP PO SCH ×3 (08:37→17:26)
[2018-12-08] MEDS: ESCITALOPRAM 10 MG TAB PO SCH (08:38)
[2018-12-08] MEDS: LINAGLIPTIN 5 MG TABLET PO SCH (08:39)
[2018-12-08] MEDS: AMLODIPINE 5 MG TAB PO SCH (08:39)
[2018-12-08] MEDS: morphine (ER) 15 MG TAB PO SCH (08:39)
[2018-12-08] MEDS: SERTRALINE 50 MG TAB PO SCH (08:39)
[2018-12-08] MEDS: HEPARIN 5,000 UNIT/1 ML VIAL SC SCH ×2 (08:44→22:41)
--- NOTE | 2018-12-08 11:58 | CONS ---
Assessment/Plan Assessment/Plan Hospital Course (Demo Recall) 1. Hyperkalemia, likely secondary to noncompliance with her dialysis sessions. Resolved 2. End-stage renal disease on hemodialysis Monday and Monday, noncompliant with dialysis sessions. She SKIPPED Monday AND TODAY 3. Overweight 4. Hypertension. 5. History of diabetes mellitus type II, not controlled . 6. Hx of noncompliance, pt was 1 week ago in hospital with similar condition 7. Bradycardia, likely could be secondary to hyperkalemia. 8. History of coronary artery bypass. 9. History of recent T11 fracture. 10. Hypocalcemia, resolved Assessment/Plan (Daily) - c/w HD -K check -healthcare social worker to follow noncompliance. -avoid nephrotoxic drugs Consultation Date/Type/Reason Admit Date/Time Dec 07, 2018 at 09:12 Initial Consult Date 12/07/2018 Type of Consult nephrology Reason for Consultation Dr Rivas Date/Time of Note DATE: 12/08/18 TIME: 11:56 24 HR Interval Summary Free Text/Dictation decreased vision Exam/Review of Systems Exam Vitals Vital Signs Date Temp Pulse Resp B/P (MAP) Pulse Ox O2 O2 Flow FiO2 Time Delivery Rate 12/08/18 98.0 67 18 100/51 95 11:32 (67) 12/08/18 2.0 05:20 12/08/18 Nasal 00:51 Cannula Intake and Output 12/07/18 12/07/18 12/08/18 1515:00 23:00 07:00 IntakeIntake Total 120 ml 480 ml 300 ml OutputOutput Total 200 ml 3000 ml 1400 ml BalanceBalance -80 ml -2520 ml -1100 ml Exam left arm AV fistula Constitutional: alert, oriented Neck: supple Respiratory: clear to auscultation Cardiovascular: regular rate and rhythm Gastrointestinal: soft Results Result Diagram: 12/08/18 0757 12/08/18 0757 Results 24hrs Laboratory Tests Test 12/07/18 14:00 12/07/18 14:15 12/07/18 17:21 12/07/18 17:57 Stool Occult Blood NEGATIVE Creatine Kinase 460 H Creatine Kinase 2.0 Index Creatinine Kinase MB 9.34 H (Mass) Troponin I 0.061 Alpha Fetoprotein 1.45 Hepatitis B Surface NEGATIVE Antigen Bedside Glucose 52 L 104 Test 2/22/19 18:51 12/07/18 21:45 12/08/18 07:53 12/08/18 07:57 Potassium Level 7.2 *H 3.5 # Creatine Kinase 371 H Creatine Kinase 2.0 Index Creatinine Kinase MB 7.36 H (Mass) Troponin I 0.083 Bedside Glucose 95 97 White Blood Count 9.5 Red Blood Count 4.39 Hemoglobin 12.3 Hematocrit 38.3 Mean Corpuscular 87.2 Volume Mean Corpuscular 28.0 L Hemoglobin Mean Corpuscular 32.1 Hemoglobin Concent Red Cell 14.6 H Distribution Width Platelet Count 239 Mean Platelet Volume 9.9 Immature 0.400 Granulocytes % Neutrophils % 76.6 Lymphocytes % 9.3 L Monocytes % 12.0 H Eosinophils % 1.1 Basophils % 0.6 Nucleated Red Blood 0.4 H Cells % Immature 0.040 H Granulocytes # Neutrophils # 7.3 Lymphocytes # 0.9 Monocytes # 1.1 H Eosinophils # 0.1 Basophils # 0.1 Nucleated Red Blood 0.0 Cells # Prothrombin Time 17.1 H Prothrombin Time 1.3 Ratio INR International 1.38 Normalized Ratio Sodium Level 139 Chloride Level 97 Carbon Dioxide Level 30 # Anion Gap 12 # Blood Urea Nitrogen 15 # Creatinine 4.37 #H Est Glomerular Filtrat Rate mL/min Glucose Level 108 Hemoglobin A1c 7.4 H Calcium Level 9.1 Phosphorus Level 4.8 Total Bilirubin 0.0 L Direct Bilirubin 0.00 Indirect Bilirubin 0.0 Aspartate Amino 40 Transf (AST/SGOT) Alanine 17 Aminotransferase (AL T/SGPT) Alkaline Phosphatase 67 Ammonia 11 Total Protein 7.3 Albumin 3.7 Globulin 3.60 H Albumin/Globulin 1.02 Ratio Triglycerides Level 178 H Cholesterol Level 142 LDL Cholesterol, 75 Calculated HDL Cholesterol 31 L Cholesterol/HDL 4.5 Ratio Thyroid Stimulating 4.200 Hormone (TSH) Medications Medication Current Medications Nitroglycerin (Nitroglycerin (Sl Tab) 0.4 Mg) 1 tab Q5M UP TO 3 DOSES PRN SL .CHEST PAIN Last administered on 12/07/18at 08:23; Admin Dose 1 TAB; Start at 08:00 Dextrose (D50w Syringe) ONCE PRN IV DECREASED GLUCOSE Last administered on 12/07/18at 09:53; Admin Dose 100 ML; Start 12/07/18 at 09:00 Sodium Chloride 1,000 ml @ 0 mls/hr Q0M PRN IV TO KEEP SBP ABOVE 90; Start 12/07/18 at 10:30 Hydralazine HCl (Apresoline) 10 mg Q6H PRN PO SBP above 160; Start 12/07/18 at 12:00 Oxycodone/ Acetaminophen (Percocet (5/ 325)) 1 tab Q6 PRN PO MODERATE PAIN LEVEL 4-6; Start 12/07/18 at 13:00 Zolpidem Tartrate (Ambien) 10 mg QHS PRN PO INSOMNIA; Start 12/07/18 at 13:00 IV Flush (NS 3 ml) 3 ml PER PROTOCOL IV ; Start 12/07/18 at 13:00 Lorazepam (Ativan) 0.5 mg Q8H PRN PO .ANXIETY; Start 12/07/18 at 13:00 Ondansetron HCl (Zofran Inj) 4 mg Q6H PRN IV NAUSEA/VOMITING; Start 12/07/18 at 13:00 Acetaminophen (Tylenol Tab) 650 mg Q6H PRN PO .PAIN 1-3 OR TEMP; Start 12/07/18 at 13:00 Diagnostic Test (Pha) (Accu-Chek) 1 ea 02 XX ; Start 12/08/18 at 02:00 Insulin Aspart (Novolog Insulin Pen) NOVOLOG *MODERATE* ALGORITHM WITH MEALS BEDTIME SC ; Start 12/07/18 at 18:00 Morphine Sulfate (morphine) 2 mg Q4H PRN IV SEVERE PAIN LEVEL 7-10; Start 12/07/18 at 13:30 Miscellaneous Information 1 ea NOTE XX ; Start 12/07/18 at 13:30 Glucose (Glutose) 15 gm Q15M PRN PO DECREASED GLUCOSE; Start 12/07/18 at 13:30 Glucose (Glutose) 22.5 gm Q15M PRN PO DECREASED GLUCOSE; Start 12/07/18 at 13:30 Dextrose (D50w Syringe) 25 ml Q15M PRN IV DECREASED GLUCOSE; Start 12/07/18 at 13:30 Dextrose (D50w Syringe) 50 ml Q15M PRN IV DECREASED GLUCOSE; Start 12/07/18 at 13:30 Glucagon (Glucagen) 1 mg Q15M PRN IM DECREASED GLUCOSE; Start 12/07/18 at 13:30 Glucose (Glutose) 15 gm Q15M PRN BUCCAL DECREASED GLUCOSE; Start 12/07/18 at 13:30 Amlodipine Besylate (Norvasc) 5 mg DAILY PO Last administered on 12/08/18 08:39; Admin Dose 5 MG; Start 12/07/18 at 18:00 Aspirin (Halfprin) 81 mg DAILY PO ; Start 12/08/18 at 18:00 Calcium Acetate (Phoslo) 667 mg WITH MEALS PO Last administered on 12/08/18 08:37; Admin Dose 667 MG; Start 12/07/18 at 18:00 Carvedilol (Coreg) 25 mg BID PO Last administered on 12/08/18 08:40; Admin Dose 25 MG; Start 12/07/18 at 21:00 Escitalopram Oxalate (Lexapro) 10 mg DAILY PO Last administered on 12/08/18 08:38; Admin Dose 10 MG; Start 12/07/18 at 18:00 Hydralazine HCl (Apresoline) 50 mg QID PO Last administered on 12/08/18 08:38; Admin Dose 50 MG; Start 12/07/18 at 21:00 Linagliptin (Tradjenta) 5 mg DAILY PO Last administered on 12/08/18 08:39; Admin Dose 5 MG; Start 12/07/18 at 18:00 Morphine Sulfate (Ms Contin (Er)) 15 mg Q12 PO Last administered on 12/08/18 08:39; Admin Dose 15 MG; Start 12/07/18 at 18:00 Sertraline HCl (Zoloft) 50 mg DAILY PO Last administered on 12/08/18 08:39; Admin Dose 50 MG; Start 12/07/18 at 18:00 Pantoprazole (Protonix Tab) 40 mg DAILY@06 PO Last administered on 12/08/18 06:14; Admin Dose 40 MG; Start 12/07/18 at 18:00 Heparin Sodium (Porcine) (Heparin (5000 Units/1ml)) 5,000 unit Q12 SC Last administered on 12/08/18 08:44; Admin Dose 5,000 UNIT; Start 12/07/18 at 18:00 Diphenhydramine HCl (Benadryl) 25 mg Q6H PRN IV itching Last administered on 12/08/18 02:28; Admin Dose 25 MG; Start 12/07/18 at 15:00 LIZABETH DAVIS Dec 08, 2018 11:58
--- NOTE | 2018-12-08 16:33 | PN ---
DATE: 12/08/2018 SUBJECTIVE: The patient needed to be dialyzed a second time yesterday due to a repeat potassium of 7 .2. The patient's appetite is marginal as patient is complaining of poor appetite. She is complaini ng of mild left-sided flank pain. She underwent a CAT scan in the Emergency Department, which just s howed ascites, which may be cardiac ascites as patient has been missing her dialysis session. PHYSICAL EXAMINATION: VITAL SIGNS: Temperature 98, pulse 64, respirations 18, blood pressure 100/51, saturation 95%. GENERAL: The patient is in no acute distress. The patient is pale. CARDIOVASCULAR: S1, S2, regular rate and rhythm. LUNGS: Clear. ABDOMEN: Distended slightly ____ in the left mid abdomen. EXTREMITIES: No clubbing, cyanosis or edema. LABORATORY DATA: White count 9.5, hemoglobin 12.2, hematocrit 38, platelets 239 with normal differen tial. Chemistry: Sodium 139, potassium 3.5, chloride 97, bicarbonate 30, BUN is 15, creatinine 4.37 , glucose of 108. Hemoglobin A1c was 7.4. Ammonia level is 11. TSH 4.2. Stool occult blood negati ve. Hepatitis B is negative. INR is 1.38. Stool culture coliform stool for C. diff negative. MEDICATIONS: 1. Aspirin 81 daily. 2. Accu-Chek q.a.c. and at bedtime. 3. Coreg 25 b.i.d. 4. Hydralazine 50 q.i.d. 5. Insulin Aspart per sliding scale. 6. Norvasc 5 mg daily. 7. PhosLo 67 t.i.d. 8. Lexapro 10 mg daily. 9. Tradjenta 5 mg daily. 10. MS Contin 15 q.12. 11. Zoloft 50 daily. 12. Protonix 40 mg daily. 13. Heparin 5000 q.12. 14. Benadryl p.r.n. 15. Morphine p.r.n. 16. Hypoglycemia protocol as directed. 17. Zofran. 18. Tylenol. 19. Hydralazine p.r.n. ASSESSMENT AND PLAN: This is a 78-year-old overweight female with history of end-stage tomy l disease, coronary artery disease status post CABG, diabetes mellitus, hypertension who presented wi th chest pain and associated shortness of breath. As patient missed her dialysis, was found to have severe hyperkalemia and fluid overload state. 1. Respiratory, doing better. Dialysis was done already twice yesterday. Chest x-ray on presentati on showed pulmonary edema, doing better now. 2. Cardiovascular. Titrate medication up as needed. Continue deep venous thrombosis prophylaxis. 3. End-stage renal disease. Electrolytes are stable. Ultrasound of the fistula to make sure the pa tient's fistula is working appropriately. 4. Gastrointestinal. The patient with abdominal pain, may be due to ascites. Continue fluid remova l with dialysis. Continue paracentesis. Continue gastrointestinal prophylaxis. 5. History of back pain, T11 compression fracture. Pain control. 6. Diarrhea, resolved. Stool studies negative. 7. Diabetes mellitus. Overall controlled on Tradjenta. 8. The patient may have liver cirrhosis. Alpha fetoprotein level is normal at 1.45. We will follow . Dictated By: AIDA PARRY/KIM Conf#: [id number] DID#: [id number]
[2018-12-08] MEDS: ASPIRIN (EC) 81 MG TAB PO SCH (17:26)
[2018-12-08] MEDS: NALOXONE (0.4 MG/ML) INJ IV PRN ×2 (21:05→21:07)
--- NOTE | 2018-12-08 21:25 | EN ---
Date/Time of Note Date/Time of Note DATE: 12/08/18 TIME: :23 Event Note Medicine Medicine Event Note [employer] HEL[employer] Called to bedside for obtundation patient very somnulent. Lethargic. Responsive to noxious stimuli only Pinpoint pupils 0.4 Narcan was given with immediate response but still lethargic. Another 0.4 was given and she became alert. Denies complaints A/P Opiate intoxication - Continue to monitor and give Narcan PRN if it wears off - Stop opiates Copies To: CC: JOSSE THOMAS MD; AIDA MORILLO MD; LIZABETH DAVIS ; DIONY ANDERSON MD Dec 08, 2018 21:25
[2018-12-08] MEDS ORDERED: NALOXONE (0.4 MG/ML) INJ IV ONE (22:00)
[2018-12-09] VITALS (24 sets, daily range): BP systolic 112–137; BP diastolic 51–64; PULSE 54–66; RESP 16–18
[2018-12-09] MEDS: ACCU-CHEK XX SCH (02:00)
[2018-12-09] MEDS: PANTOPRAZOLE (EC) 40 MG TAB PO SCH (05:39)
[2018-12-09] MEDS: LINAGLIPTIN 5 MG TABLET PO SCH (08:35)
[2018-12-09] MEDS: SERTRALINE 50 MG TAB PO SCH (08:35)
[2018-12-09] MEDS: ASPIRIN (EC) 81 MG TAB PO SCH (08:35)
[2018-12-09] MEDS: CALCIUM ACETATE 667 MG CAP PO SCH ×3 (08:35→17:30)
[2018-12-09] MEDS: ESCITALOPRAM 10 MG TAB PO SCH (08:35)
[2018-12-09] MEDS: AMLODIPINE 5 MG TAB PO SCH (08:36)
[2018-12-09] MEDS: INSULIN ASPART [NOVOLOG] 3 ML PEN SC SCH ×4 (08:45→20:44)
[2018-12-09] MEDS: HEPARIN 5,000 UNIT/1 ML VIAL SC SCH ×2 (08:45→21:30)
[2018-12-09] MEDS ORDERED: ALBUMIN HUMAN 25% 100 ML IV PRN (10:00)
--- NOTE | 2018-12-09 13:46 | PN ---
DATE: 12/09/2018 The patient here today, had a rapid response issue, she was noted to be more lethargic. Apparently, this may have been due to opioid overdose. The patient was given 2 doses of Narcan with some improve ment in mentation. Ultimately, the patient underwent lab work, white count went up to 11 and chest x -ray shows mildly increased alveolar infiltrates, interstitial edema is improving. White count today is normal, but will start her empirically on antibiotics. She is also awaiting a paracentesis as a CT scan showed large amount of ascites and patient has vague abdominal pain. The patient is cu rrently being dialyzed. Overall, feeling better. PHYSICAL EXAMINATION: VITAL SIGNS: Temperature 98.3, pulse 54, respirations 18, blood pressure 119/57, saturation 95%. GENERAL: The patient is in no acute distress. HEENT: Normocephalic, atraumatic. Pale. CARDIOVASCULAR: S1, S2, regular rate. LUNGS: Clear. ABDOMEN: Slightly distended, improved. No significant pain. EXTREMITIES: No clubbing, cyanosis, or edema. LABORATORY DATA: White count is 9.1, hemoglobin 12.1, hematocrit 39, platelets 207, normal different ial. Chemistry: Sodium 140, potassium 3.8, chloride 98, bicarbonate 27, BUN is 22, creatinine 6.23, glucose 136. ABG done yesterday shows a pH of 7.5, pCO2 of 31, bicarbonate 25. MEDICATIONS: Include: 1. Albumin as directed. 2. Narcan as directed. 3. Aspirin 81 daily. 4. Accu-Cheks as directed. 5. Coreg 25 b.i.d. 6. Hydralazine 50 q.i.d. 7. Norvasc 5 mg daily. 8. PhosLo 67 t.i.d. meals. 9. Lexapro 10 mg daily. 10. Tradjenta 5 mg daily. 11. Zoloft 50 mg b.i.d. 12. . 13. Heparin 5000 q.12h. 14. Benadryl p.r.n. 15. Hypoglycemia protocol as directed. 16. Percocet p.r.n. 17. Ambien p.r.n. 18. Zofran p.r.n. 19. Tylenol p.r.n. 20. Accu-Cheks are 144, 170. No evidence of hypoglycemia. ASSESSMENT AND PLAN: This is a 78-year-old overweight female with history of end-stage tomy l disease, coronary artery disease, status post CABG, diabetes mellitus, hypertension, presented with chest pain disorder, shortness of breath, was found to have severe hyperkalemia and fluid overload s lyons. 1. Respiratory. Now doing better. Avoid sedation. Continue dialysis for fluid removal and add ant ibiotics for possible superimposed pneumonia. 2. Infectious disease. The patient with possible pneumonia. Obtain blood cultures, sputum culture and MRSA of the nares. Start the patient on Zosyn empirically and we will follow. 3. Abdominal pain with evidence of large ascites on CT scan. We will order a paracentesis, empiric antibiotics as well for SBP. 4. Gastrointestinal. Continue to monitor hemoglobin and hematocrit. No need for transfusion. Milana montoya I ordered a paracentesis. 5. History of back pain. Pain control but avoid routine opioids. 6. Diarrhea, resolved. Stool studies negative. 7. Diabetes mellitus, overall controlled on Tradjenta and insulin sliding scale. 8. Questionable liver cirrhosis. Supportive care. Alpha fetoprotein normal. 9. Continue to monitor clinical improvement. We will follow. Dictated By: AIDA PARRY/KIM Conf#: [id number] DID#: [id number] CC: AIDA MORILLO MD;*EndCC*
[2018-12-09] MEDS: PIPER-TAZO 2.25 GM (PMX) 50 ML IVPB SCH (14:57)
--- NOTE | 2018-12-09 16:27 | CONS ---
Assessment/Plan Assessment/Plan Hospital Course (Demo Recall) 1. Severe hyperkalemia likely secondary to noncompliance better 2. Severe metabolic acidosis likely secondary to missing dialysis session/diarrhea.better 3. htn 4. History of fall. 5. Diarrhea.better 6. History of back pain with a history of T11 compression fracture. 7. Diabetes. 8. Anemia. 9. History of coronary artery disease. plan hd today Consultation Date/Type/Reason Admit Date/Time Dec 07, 2018 at 09:12 Initial Consult Date Type of Consult ckd f/u Date/Time of Note DATE: 12/09/18 TIME: 16:26 Exam/Review of Systems Exam Vitals Vital Signs Date Temp Pulse Resp B/P (MAP) Pulse Ox O2 O2 Flow FiO2 Time Delivery Rate 12/09/18 58 14:00 12/09/18 98.3 18 119/57 95 11:55 (77) 12/09/18 Nasal 2.0 10:45 Cannula Intake and Output 12/08/18 12/08/18 12/09/18 1515:00 23:00 07:00 IntakeIntake Total 350 ml 500 ml BalanceBalance 350 ml 500 ml Neck: supple Respiratory: clear to auscultation Cardiovascular: regular rate and rhythm Gastrointestinal: soft, bowel sounds (+) Extremities: No edema Results Result Diagram: 12/09/18 0509 12/09/18 0510 Results 24hrs Laboratory Tests Test 12/08/18 17:25 12/08/18 20:49 12/08/18 21:56 12/08/18 22:57 Bedside Glucose 93 122 White Blood Count 11.0 H Red Blood Count 4.42 Hemoglobin 12.5 Hematocrit 39.5 Mean Corpuscular 89.4 Volume Mean Corpuscular 28.3 L Hemoglobin Mean Corpuscular 31.6 L Hemoglobin Concen t Red Cell 14.9 H Distribution Width Platelet Count 218 Mean Platelet 10.1 Volume Immature 0.500 H Granulocytes % Neutrophils % 74.9 Lymphocytes % 11.5 L Monocytes % 11.0 Eosinophils % 1.5 Basophils % 0.6 Nucleated Red 0.3 H Blood Cells % Immature 0.060 H Granulocytes # Neutrophils # 8.2 H Lymphocytes # 1.3 Monocytes # 1.2 H Eosinophils # 0.2 Basophils # 0.1 Nucleated Red 0.0 Blood Cells # Sodium Level 138 Potassium Level 3.7 Chloride Level 96 L Carbon Dioxide 29 Level Anion Gap 13 Blood Urea 19 Nitrogen Creatinine 5.68 H Est Glomerular Filtrat Rate mL/min Glucose Level 145 Calcium Level 8.8 Blood Gas Blood venous Specimen Source Arterial Blood 12/08/2018 11:00: Date Drawn 43 PM Arterial Blood VENOUS LINE Gas Puncture Site Jay Test N/A Venous Blood pH 7.522 H Venous Blood pCO2 30.6 L (Temp Corrected) Venous Blood pO2 94.4 H (Temp Corrected) Venous Blood HCO3 24.5 Venous Blood 97.6 H Oxygen Saturation Venous Blood Base 2.5 Excess Venous Blood 13.4 Total Hemoglobin Venous Blood 96.8 Oxyhemoglobin Venous Blood 0.2 Methemoglobin Carboxyhemoglobin 0.6 Blood Gas 37.0 Temperature Blood Gas NASAL CANNULA Modality FiO2 30.0 Blood Gas Darryl GASTELUM R.N Critical Value Read Back Blood Gas MM Notified Whom Blood Gas 12/08/2018 11:06: Notified Time 27 PM Test 12/09/18 05:09 12/09/18 05:10 12/09/18 08:14 12/09/18 12:06 White Blood Count 9.1 Red Blood Count 4.29 Hemoglobin 12.1 Hematocrit 38.6 Mean Corpuscular 90.0 Volume Mean Corpuscular 28.2 L Hemoglobin Mean Corpuscular 31.3 L Hemoglobin Concen t Red Cell 14.8 H Distribution Width Platelet Count 207 Mean Platelet 10.1 Volume Immature 0.400 Granulocytes % Neutrophils % 74.3 Lymphocytes % 15.1 Monocytes % 9.5 Eosinophils % 0.2 Basophils % 0.5 Nucleated Red 0.2 H Blood Cells % Immature 0.040 H Granulocytes # Neutrophils # 6.8 Lymphocytes # 1.4 Monocytes # 0.9 Eosinophils # 0.0 Basophils # 0.1 Nucleated Red 0.0 Blood Cells # Phosphorus Level 7.4 #H Magnesium Level 2.0 Sodium Level 143 Potassium Level 3.9 Chloride Level 98 Carbon Dioxide 27 Level Anion Gap 18 H Blood Urea 23 H Nitrogen Creatinine 6.23 H Est Glomerular Filtrat Rate mL/min Glucose Level 136 Calcium Level 8.7 Bedside Glucose 170 144 Medications Medication Current Medications Nitroglycerin (Nitroglycerin (Sl Tab) 0.4 Mg) 1 tab Q5M UP TO 3 DOSES PRN SL .CHEST PAIN Last administered on 12/07/18at 08:23; Admin Dose 1 TAB; Start 12/07/18 at 08:00 Dextrose (D50w Syringe) ONCE PRN IV DECREASED GLUCOSE Last administered on 12/07/18at 09:53; Admin Dose 100 ML; Start 12/07/18 at 09:00 Sodium Chloride 1,000 ml @ 0 mls/hr Q0M PRN IV TO KEEP SBP ABOVE 90; Start 12/07/18 at 10:30 Hydralazine HCl (Apresoline) 10 mg Q6H PRN PO SBP above 160; Start 12/07/18 at 12:00 Oxycodone/ Acetaminophen (Percocet (5/ 325)) 1 tab Q6 PRN PO MODERATE PAIN LEVEL 4-6 Last administered on 12/08/18at 15:34; Admin Dose 1 TAB; Start 12/07/18 at 13:00 Zolpidem Tartrate (Ambien) 10 mg QHS PRN PO INSOMNIA; Start 12/07/18 at 13:00 IV Flush (NS 3 ml) 3 ml PER PROTOCOL IV ; Start 12/07/18 at 13:00 Lorazepam (Ativan) 0.5 mg Q8H PRN PO .ANXIETY; Start 12/07/18 at 13:00 Ondansetron HCl (Zofran Inj) 4 mg Q6H PRN IV NAUSEA/VOMITING; Start 12/07/18 at 13:00 Acetaminophen (Tylenol Tab) 650 mg Q6H PRN PO .PAIN 1-3 OR TEMP; Start 12/07/18 at 13:00 Diagnostic Test (Pha) (Accu-Chek) 1 ea 02 XX ; Start 12/08/18 at 02:00 Insulin Aspart (Novolog Insulin Pen) NOVOLOG *MODERATE* ALGORITHM WITH MEALS BEDTIME SC Last administered on 12/09/18at 12:33; Admin Dose 2 UNIT; Start 12/07/18 at 18:00 Miscellaneous Information 1 ea NOTE XX ; Start 12/07/18 at 13:30 Glucose (Glutose) 15 gm Q15M PRN PO DECREASED GLUCOSE; Start 12/07/18 at 13:30 Glucose (Glutose) 22.5 gm Q15M PRN PO DECREASED GLUCOSE; Start 12/07/18 at 13:30 Dextrose (D50w Syringe) 25 ml Q15M PRN IV DECREASED GLUCOSE; Start 12/07/18 at 13:30 Dextrose (D50w Syringe) 50 ml Q15M PRN IV DECREASED GLUCOSE; Start 12/07/18 at 13:30 Glucagon (Glucagen) 1 mg Q15M PRN IM DECREASED GLUCOSE; Start 12/07/18 at 13:30 Glucose (Glutose) 15 gm Q15M PRN BUCCAL DECREASED GLUCOSE; Start 12/07/18 at 13:30 Amlodipine Besylate (Norvasc) 5 mg DAILY PO Last administered on 12/08/18 08:39; Admin Dose 5 MG; Start 12/07/18 at 18:00 Aspirin (Halfprin) 81 mg DAILY PO Last administered on 12/09/18 08:35; Admin Dose 81 MG; Start 12/08/18 at 18:00 Calcium Acetate (Phoslo) 667 mg WITH MEALS PO Last administered on 12/09/18 12:30; Admin Dose 667 MG; Start 12/07/18 at 18:00 Carvedilol (Coreg) 25 mg BID PO Last administered on 12/08/18 08:40; Admin Dose 25 MG; Start 12/07/18 at 21:00 Escitalopram Oxalate (Lexapro) 10 mg DAILY PO Last administered on 12/09/18 08:35; Admin Dose 10 MG; Start 12/07/18 at 18:00 Hydralazine HCl (Apresoline) 50 mg QID PO Last administered on 12/08/18 21:38; Admin Dose 50 MG; Start 12/07/18 at 21:00 Linagliptin (Tradjenta) 5 mg DAILY PO Last administered on 12/09/18 08:35; Admin Dose 5 MG; Start 12/07/18 at 18:00 Sertraline HCl (Zoloft) 50 mg DAILY PO Last administered on 12/09/18 08:35; Admin Dose 50 MG; Start 12/07/18 at 18:00 Pantoprazole (Protonix Tab) 40 mg DAILY@06 PO Last administered on 12/09/18 05:39; Admin Dose 40 MG; Start 12/07/18 at 18:00 Heparin Sodium (Porcine) (Heparin (5000 Units/1ml)) 5,000 unit Q12 SC Last administered on 12/09/18 08:45; Admin Dose 5,000 UNIT; Start 12/07/18 at 18:00 Diphenhydramine HCl (Benadryl) 25 mg Q6H PRN IV itching Last administered on 12/08/18at 02:28; Admin Dose 25 MG; Start 12/07/18 at 15:00 Naloxone HCl (Narcan) 0.2 mg Q2M PRN IV DECREASED REPIRATORY RATE Last administered on 12/08/18at 21:07; Admin Dose 0.2 MG; Start 12/08/18 at 21:30 Albumin Human 100 ml @ 100 mls/hr WITH DIALYSIS PRN IV SBP <90 DURING DIALYSIS; Start 12/09/18 at 10:00 Piperacillin Sod/ Tazobactam Sod 50 ml @ 25 mls/hr Q12 IVPB Last administered on 12/09/18at 14:57; Admin Dose 25 MLS/HR; Start 12/09/18 at 13:45 DELILAH MOONEY MD Dec 09, 2018 16:27
[2018-12-10] VITALS (12 sets, daily range): BP systolic 100–148; BP diastolic 53–66; PULSE 56–63; RESP 16–20
[2018-12-10] MEDS: PIPER-TAZO 2.25 GM (PMX) 50 ML IVPB SCH ×3 (00:03→23:10)
[2018-12-10] MEDS: ACCU-CHEK XX SCH (02:00)
[2018-12-10] MEDS: PANTOPRAZOLE (EC) 40 MG TAB PO SCH (05:32)
[2018-12-10] MEDS: INSULIN ASPART [NOVOLOG] 3 ML PEN SC SCH ×4 (07:53→23:06)
[2018-12-10] MEDS: CALCIUM ACETATE 667 MG CAP PO SCH ×3 (08:22→17:06)
[2018-12-10] MEDS: SERTRALINE 50 MG TAB PO SCH (08:22)
[2018-12-10] MEDS: ASPIRIN (EC) 81 MG TAB PO SCH (08:22)
[2018-12-10] MEDS: ESCITALOPRAM 10 MG TAB PO SCH (08:22)
[2018-12-10] MEDS: AMLODIPINE 5 MG TAB PO SCH (08:22)
[2018-12-10] MEDS: LINAGLIPTIN 5 MG TABLET PO SCH (08:22)
[2018-12-10] MEDS: HEPARIN 5,000 UNIT/1 ML VIAL SC SCH ×2 (08:31→23:26)
--- NOTE | 2018-12-10 09:48 | CONS ---
Assessment/Plan Assessment/Plan Assessment/Plan (Daily) 1 Severe hyperkalemia likely secondary to noncompliance better 2. Severe metabolic acidosis likely secondary to missing dialysis session/diarrhea.better 3. htn 4. History of fall. 5. Diarrhea.better 6. History of back pain with a history of T11 compression fracture. 7. Diabetes. 8. Anemia. 9. History of coronary artery disease. plan -Patient is refusing to be on dialysis 3 times a week only gets dialysis twice a week -This post HD yesterday -Renal diet low K diet -Renally dose all meds Consultation Date/Type/Reason Admit Date/Time Dec 07, 2018 at 09:12 Initial Consult Date Date/Time of Note DATE: 12/10/18 TIME: 09:46 24 HR Interval Summary Free Text/Dictation no New events. Status post HD yesterday Exam/Review of Systems Exam Vitals Vital Signs Date Temp Pulse Resp B/P (MAP) Pulse Ox O2 O2 Flow FiO2 Time Delivery Rate 12/10/18 62 09:04 12/10/18 98.3 20 137/65 96 Room Air 07:41 (89) 12/10/18 3.0 04:14 Intake and Output 12/09/18 12/09/18 12/10/18 1515:00 23:00 07:00 IntakeIntake Total 300 ml 650 ml OutputOutput Total 2600 ml BalanceBalance -2600 ml 300 ml 650 ml Exam Neck: supple Respiratory: clear to auscultation Cardiovascular: regular rate and rhythm Gastrointestinal: soft, bowel sounds (+) Extremities: No edema Results Result Diagram: 12/10/18 0512 12/10/18 0513 Results 24hrs Laboratory Tests Test 12/09/18 12:06 12/09/18 17:23 12/09/18 20:41 12/10/18 05:12 Bedside Glucose 144 100 152 White Blood Count 7.9 Red Blood Count 4.27 Hemoglobin 12.2 Hematocrit 38.7 Mean Corpuscular 90.6 Volume Mean Corpuscular 28.6 L Hemoglobin Mean Corpuscular 31.5 L Hemoglobin Concent Red Cell 14.9 H Distribution Width Platelet Count 202 Mean Platelet Volume 10.2 Immature 0.600 H Granulocytes % Neutrophils % 61.8 Lymphocytes % 18.4 Monocytes % 14.6 H Eosinophils % 4.0 Basophils % 0.6 Nucleated Red Blood 0.3 H Cells % Immature 0.050 H Granulocytes # Neutrophils # 4.9 Lymphocytes # 1.5 Monocytes # 1.2 H Eosinophils # 0.3 Basophils # 0.1 Nucleated Red Blood 0.0 Cells # Test 12/10/18 05:13 12/10/18 07:52 Sodium Level 140 Potassium Level 3.8 Chloride Level 96 L Carbon Dioxide Level 30 Anion Gap 14 H Blood Urea Nitrogen 15 Creatinine 4.90 #H Est Glomerular Filtrat Rate mL/min Glucose Level 104 Calcium Level 8.7 Phosphorus Level 4.2 # Magnesium Level 1.9 Bedside Glucose 99 Medications Medication Current Medications Nitroglycerin (Nitroglycerin (Sl Tab) 0.4 Mg) 1 tab Q5M UP TO 3 DOSES PRN SL .CHEST PAIN Last administered on 12/07/18at 08:23; Admin Dose 1 TAB; Start 12/07/18 at 08:00 Dextrose (D50w Syringe) ONCE PRN IV DECREASED GLUCOSE Last administered on 12/07/18at 09:53; Admin Dose 100 ML; Start 12/07/18 at 09:00 Sodium Chloride 1,000 ml @ 0 mls/hr Q0M PRN IV TO KEEP SBP ABOVE 90; Start 12/07/18 at 10:30 Hydralazine HCl (Apresoline) 10 mg Q6H PRN PO SBP above 160; Start 12/07/18 at 12:00 Oxycodone/ Acetaminophen (Percocet (5/ 325)) 1 tab Q6 PRN PO MODERATE PAIN LEVEL 4-6 Last administered on 12/08/18at 15:34; Admin Dose 1 TAB; Start 12/07/18 at 13:00 Zolpidem Tartrate (Ambien) 10 mg QHS PRN PO INSOMNIA; Start 12/07/18 at 13:00 IV Flush (NS 3 ml) 3 ml PER PROTOCOL IV ; Start 12/07/18 at 13:00 Lorazepam (Ativan) 0.5 mg Q8H PRN PO .ANXIETY; Start 12/07/18 at 13:00 Ondansetron HCl (Zofran Inj) 4 mg Q6H PRN IV NAUSEA/VOMITING; Start 12/07/18 at 13:00 Acetaminophen (Tylenol Tab) 650 mg Q6H PRN PO .PAIN 1-3 OR TEMP; Start 12/07/18 at 13:00 Diagnostic Test (Pha) (Accu-Chek) 1 ea 02 XX ; Start 12/08/18 at 02:00 Insulin Aspart (Novolog Insulin Pen) NOVOLOG *MODERATE* ALGORITHM WITH MEALS BEDTIME SC Last administered on 12/09/18at 12:33; Admin Dose 2 UNIT; Start 12/07/18 at 18:00 Miscellaneous Information 1 ea NOTE XX ; Start 12/07/18 at 13:30 Glucose (Glutose) 15 gm Q15M PRN PO DECREASED GLUCOSE; Start 12/07/18 at 13:30 Glucose (Glutose) 22.5 gm Q15M PRN PO DECREASED GLUCOSE; Start 12/07/18 at 13:30 Dextrose (D50w Syringe) 25 ml Q15M PRN IV DECREASED GLUCOSE; Start 12/07/18 at 13:30 Dextrose (D50w Syringe) 50 ml Q15M PRN IV DECREASED GLUCOSE; Start 12/07/18 at 13:30 Glucagon (Glucagen) 1 mg Q15M PRN IM DECREASED GLUCOSE; Start 12/07/18 at 13:30 Glucose (Glutose) 15 gm Q15M PRN BUCCAL DECREASED GLUCOSE; Start 12/07/18 at 13:30 Amlodipine Besylate (Norvasc) 5 mg DAILY PO Last administered on 12/10/18 08:22; Admin Dose 5 MG; Start 12/07/18 at 18:00 Aspirin (Halfprin) 81 mg DAILY PO Last administered on 12/10/18 08:22; Admin Dose 81 MG; Start 12/08/18 at 18:00 Calcium Acetate (Phoslo) 667 mg WITH MEALS PO Last administered on 12/10/18 08:22; Admin Dose 667 MG; Start 12/07/18 at 18:00 Carvedilol (Coreg) 25 mg BID PO Last administered on 12/10/18 08:23; Admin Dose 25 MG; Start 12/07/18 at 21:00 Escitalopram Oxalate (Lexapro) 10 mg DAILY PO Last administered on 12/10/18 08:22; Admin Dose 10 MG; Start 12/07/18 at 18:00 Hydralazine HCl (Apresoline) 50 mg QID PO Last administered on 12/10/18 08:23; Admin Dose 50 MG; Start 12/07/18 at 21:00 Linagliptin (Tradjenta) 5 mg DAILY PO Last administered on 12/10/18 08:22; Admin Dose 5 MG; Start 12/07/18 at 18:00 Sertraline HCl (Zoloft) 50 mg DAILY PO Last administered on 12/10/18 08:22; Admin Dose 50 MG; Start 12/07/18 at 18:00 Pantoprazole (Protonix Tab) 40 mg DAILY@06 PO Last administered on 12/10/18 05:32; Admin Dose 40 MG; Start 12/07/18 at 18:00 Heparin Sodium (Porcine) (Heparin (5000 Units/1ml)) 5,000 unit Q12 SC Last administered on 12/10/18 08:31; Admin Dose 5,000 UNIT; Start 12/07/18 at 18:00 Diphenhydramine HCl (Benadryl) 25 mg Q6H PRN IV itching Last administered on 12/08/18 02:28; Admin Dose 25 MG; Start 12/07/18 at 15:00 Naloxone HCl (Narcan) 0.2 mg Q2M PRN IV DECREASED REPIRATORY RATE Last administered on 12/08/18 21:07; Admin Dose 0.2 MG; Start 12/08/18 at 21:30 Albumin Human 100 ml @ 100 mls/hr WITH DIALYSIS PRN IV SBP <90 DURING DIALYSIS; Start 12/09/18 at 10:00 Piperacillin Sod/ Tazobactam Sod 50 ml @ 25 mls/hr Q12 IVPB Last administered on 12/10/18 08:21; Admin Dose 25 MLS/HR; Start 12/09/18 at 13:45 JOSSE THOMAS MD Dec 10, 2018 09:48
--- NOTE | 2018-12-10 14:43 | RADRPT ---
Echocardiogram Report Patient Name: Maria Victoria SHORT ID: [id number] : 1940 (78y 4m)Study Date: 12/08/2018 8:33:43 AM Gender: FAccession #: [id number] Tech: LE Location: Ref.Physician: AIDA MORILLO Height(Cm): BSA: Weight(Kg): Quality: GoodAccount #: Procedures: Echocardiographic Report: Transthoracic echocardiogram with complete 2D, M-Mode, and doppler examination. Indications: Congestive Heart Failure. Measurements: 2D/M Mode Doppler Measurement Value Normal Range Measurement Value Normal Range LVIDd 2D 3.9 [ 3.8 - 5.2 ] cm FAUZIA Vmax 0.9 [ 2.0 - 4.0 ] cm2 LVIDs 2D 2.9 [ 2.2 - 3.5 ] cm FAUZIA VTI 1.0 [ 2.0 - 4.0 ] cm2 LVPWd 2D 1.1 [ 0.6 - 0.9 ] cm AV Mean Sloan 2.0 [ 70.0 - 90.0 ] cm/sec IVSd 2D 1.1 [ 0.6 - 0.9 ] cm AV Mean PG 18.0 [ 2.0 - 4.0 ] mmHg IVS/LVPW 2D 1.0 ratio AV Peak Sloan 2.8 [ 100.0 - 170.0 ] cm/sec LVOT Diam 1.8 [ 2.1 - 2.5 ] cm AV Peak PG 32.0 [ 2.0 - 9.0 ] mmHg LVOT Area 2.5 cm2 AV VTI 60.5 cm LVOT Mean Sloan 0.7 [ 60.0 - 80.0 ] cm/sec LVOT Mean PG 2.0 [ 1.0 - 3.0 ] mmHg LVOT Peak Sloan 1.0 [ 70.0 - 110.0 ] cm/sec LVOT Peak PG 4.0 [ 2.0 - 6.0 ] mmHg LVOT VTI 22.9 [ 20.0 - 30.0 ] cm MV E Peak Sloan 1.0 [ 60.0 - 130.0 ] cm/sec MV A Peak Sloan 1.0 [ 100.0 - 120.0 ] cm/sec MV E/A 1.0 [ 0.8 - 1.5 ] ratio MV Decel Time 257 [ 104 - 258 ] msec Lat E` Sloan 0.1 [ 10.0 - 15.0 ] cm/sec Med E` Sloan 0.1 cm/sec MV E/A 1.0 [ 0.8 - 1.5 ] ratio TR Peak Sloan 2.8 [ 100.0 - 280.0 ] cm/sec TR Peak PG 32.0 mmHg PV Peak Sloan 0.9 [ 40.0 - 80.0 ] cm/sec PV Peak PG 3.0 mmHg RA Pressure 8.0 mmHg Findings: Left Ventricle: Normal left ventricular systolic function. Ejection fraction is visually estimated at 65 %. Tissue Doppler/Mitral Doppler indices are consistent with pseudonormalization with mildly elevated left atrial pressure (Stage II diastolic dysfunction). These segments of the LV are hypokinetic anteroseptum segment. Right Ventricle: Normal right ventricular size. Normal right ventricular systolic function. Left Atrium: There is moderate enlargement of left atrium. Right Atrium: There is mild enlargement of right atrium. Mitral Valve: Mitral valve leaflets appear mildly thickened. Mild mitral annular calcification. Mild mitral valve regurgitation. Aortic Valve: Aortic valve not well visualized. Moderate aortic stenosis. Aortic valve Max velocity 2.81 m/sec. Max PG 32.00 mmHg. Mean PG 18.00 mmHg. Aortic cusps appear mildly calcified. Trace aortic valve regurgitation. Tricuspid Valve: Normal appearance of the tricuspid valve. Right ventricular systolic pressure is consistent with mild pulmonary hypertension. Estimated peak PA systolic pressure 40 mmHg. There is mild tricuspid regurgitation. Pulmonic Valve: Pulmonic valve not well visualized. There is trace pulmonic regurgitation. Pericardium: Normal pericardium with no significant pericardial effusion. No pleural effusion noted. Aorta: Normal aortic root. IVC: Dilated IVC with respiratory collapse consistent with elevated right atrial pressure. Conclusions: Normal left ventricular systolic function. Ejection fraction is visually estimated at 65 %. Tissue Doppler/Mitral Doppler indices are consistent with pseudonormalization with mildly elevated left atrial pressure (Stage II diastolic dysfunction). These segments of the LV are hypokinetic anteroseptum segment. Mitral valve leaflets appear mildly thickened. Mild mitral annular calcification. Mild mitral valve regurgitation. Aortic valve not well visualized. Moderate aortic stenosis. Aortic valve Max velocity 2.81 m/sec. Max PG 32.00 mmHg. Mean PG 18.00 mmHg. Aortic cusps appear mildly calcified. Trace aortic valve regurgitation. Normal appearance of the tricuspid valve. Right ventricular systolic pressure is consistent with mild pulmonary hypertension. Estimated peak PA systolic pressure 40 mmHg. There is mild tricuspid regurgitation. Dilated IVC with respiratory collapse consistent with elevated right atrial pressure. Electronically Signed By: Noe Ambriz 2018-12-10 14:42:19 PST
--- NOTE | 2018-12-10 16:41 | CONS ---
Assessment/Plan Assessment/Plan Hospital Course (Demo Recall) 1. Question of her chest pain has resolved with negative troponin 2. Frequent PVCs and bigeminy currently back in sinus rhythm 3. History of coronary artery disease status coronary bypass graft 4. History of severe cardiomyopathy versus VT status post ICD placement 5. Renal failure on dialysis 6. Hypertension 7. Diabetes 8. Dyslipidemia 9. Severe hyperkalemia: Secondary to noncompliance with hemodialysis Recommendations: Hemodialysis to be managed as per renal team. Continue with Coreg Patient already has ICD in place Aspirin to be continued Diabetic management as per internal medicine Electrolyte to be corrected as needed Check lipid panel and if LDL is a more than 70 consider addition of statin Thank you for his referral. We will continue to follow along with you BISI MARTINS MD [facility] Consultation Date/Type/Reason Admit Date/Time Dec 07, 2018 at 09:12 Date of Consultation: Dec 10, 2018 Type of Consult Cardiology Reason for Consultation Arrhythmia Requesting Provider: AIDA MORILLO MD Date/Time of Note DATE: 12/10/18 TIME: 16:34 Hx of Present Illness Interventional cardiology consultation note Chief complaint: Missed hemodialysis. Weakness. Reason for consult: Arrhythmia with frequent PVC History of present illness: Thank you for this referral. History was at home the patient was a poor historian for review of the old chart. Discussion with staff and physician. This is a pleasant 78-year-old female with history of coronary artery disease status post coronary bypass graft, renal failure on dialysis who came in because he had missed her dialysis. She denies any chest pain or pressure to me now however per ER notes she has complained of chest pain details unclear. She was also noted to be severely hyperkalemic. And had to be dialyzed. Today she was noted to have episodes of frequent PVCs and bigeminy for which I was kindly asked to lateral and treat. PAST MEDICAL HISTORY: Includes end-stage renal disease, history of probably cardiomyopathy status post AICD placement, CABG, hypertension, dyslipidemia, diabetes mellitus, anxiety disorder. PAST SURGICAL HISTORY: Appendectomy, multiple AV fistulas in the left upper extremity, Bakari catheter placement, CABG. SOCIAL HISTORY: She stopped smoking more than 30 years ago, but smoked heavily. Alcohol was also stopped 30 years ago. She used to drink heavily. IV drug abuse was none. FAMILY HISTORY: Mother from heart disease. Father from multiorgan failure. ALLERGIES: TAPE; OTHERWISE NO KNOWN DRUG ALLERGIES. HOME MEDICATIONS: Reviewed. They include the followin. Amlodipine 5 mg daily. 2. Aspirin 81 mg daily. 3. Calcium acetate 667 t.i.d. 4. Coreg 25 b.i.d. 5. Lexapro 10 mg daily. 6. Lasix 40 mg daily. 7. Hydralazine 50 mg q.i.d. 8. Tradjenta 5 mg daily. 9. Morphine sulfate extended release 15 mg b.i.d. 10. Oxycodone p.r.n. for pain. 11. Sertraline 50 mg daily. 12. Ambien 10 mg at bedtime p.r.n. for insomnia. 13. Multivitamin with mineral as directed. 14. Lindstrom XL daily. Review of system: Patient denies all others except for above-mentioned Past Medical History Home Meds Active Scripts Morphine Sulfate* (Oramorph SR*) 15 Mg Tablet.sa, 15 MG PO Q12, #30 TAB.SA Prov:AIDA MORILLO MD 07/11/17 Linagliptin (TRADJENTA) 5 Mg Tablet, 5 MG PO DAILY for 30 Days, TAB Prov:AIDA MORILLO MD 01/02/17 Zolpidem Tartrate* (Ambien*) 10 Mg Tablet, 10 MG PO QHS PRN for INSOMNIA for 30 Days, TAB Prov:AIDA MORILLO MD 01/02/17 Calcium Acetate* (Calcium Acetate*) 667 Mg Capsule, 667 MG PO TID for 30 Days, CAP Prov:AIDA MORILLO MD 01/02/17 Reported Medications Escitalopram Oxalate* (Escitalopram Oxalate*) 10 Mg Tablet, 10 MG PO DAILY, #30 TAB 11/28/17 [omegaXL] No Conflict Check, 2 CAP ORAL DAILY for supplement for 30 Days 11/28/17 Multivitamin with Minerals (Multivitamins with Minerals) 1 Each Tablet, 1 EACH PO, TAB 11/28/17 Oxycodone HCl/Acetaminophen (Oxycodone-Acetaminophen 5-325) 1 Each Tablet, 1 EACH PO, TAB 11/28/17 Hydralazine Hcl* (Hydralazine Hcl*) 50 Mg Tab, 50 MG PO QID, #120 TAB 11/28/17 Sertraline Hcl* (Sertraline Hcl*) 50 Mg Tablet, 50 MG PO DAILY, #30 TAB 07/10/17 Carvedilol* (Carvedilol*) 25 Mg Tablet, 25 MG PO BID, #60 TAB 07/10/17 Amlodipine Besylate* (Norvasc*) 5 Mg Tablet, 5 MG PO DAILY, TAB 07/10/17 Furosemide* (Furosemide*) 40 Mg Tablet, 40 MG PO DAILY, TAB 07/10/17 Aspirin (Low Dose Aspirin) 81 Mg Tablet.dr, 81 MG PO DAILY 03/02/15 Medications Current Medications Nitroglycerin (Nitroglycerin (Sl Tab) 0.4 Mg) 1 tab Q5M UP TO 3 DOSES PRN SL .CHEST PAIN Last administered on 12/07/18at 08:23; Admin Dose 1 TAB; Start 12/07/18 at 08:00 Dextrose (D50w Syringe) ONCE PRN IV DECREASED GLUCOSE Last administered on 12/07/18at 09:53; Admin Dose 100 ML; Start 12/07/18 at 09:00 Sodium Chloride 1,000 ml @ 0 mls/hr Q0M PRN IV TO KEEP SBP ABOVE 90; Start 12/07/18 at 10:30 Hydralazine HCl (Apresoline) 10 mg Q6H PRN PO SBP above 160; Start 12/07/18 at 12:00 Oxycodone/ Acetaminophen (Percocet (5/ 325)) 1 tab Q6 PRN PO MODERATE PAIN LEVEL 4-6 Last administered on 12/08/18at 15:34; Admin Dose 1 TAB; Start 12/07/18 at 13:00 Zolpidem Tartrate (Ambien) 10 mg QHS PRN PO INSOMNIA; Start 12/07/18 at 13:00 IV Flush (NS 3 ml) 3 ml PER PROTOCOL IV ; Start 12/07/18 at 13:00 Lorazepam (Ativan) 0.5 mg Q8H PRN PO .ANXIETY; Start 12/07/18 at 13:00 Ondansetron HCl (Zofran Inj) 4 mg Q6H PRN IV NAUSEA/VOMITING; Start 12/07/18 at 13:00 Acetaminophen (Tylenol Tab) 650 mg Q6H PRN PO .PAIN 1-3 OR TEMP; Start 12/07/18 at 13:00 Diagnostic Test (Pha) (Accu-Chek) 1 02 XX ; Start 12/08/18 at 02:00 Insulin Aspart (Novolog Insulin Pen) NOVOLOG *MODERATE* ALGORITHM WITH MEALS BEDTIME SC Last administered on 12/10/18 12:12; Admin Dose 4 UNIT; Start 12/07/18 at 18:00 Miscellaneous Information 1 ea NOTE XX ; Start 12/07/18 at 13:30 Glucose (Glutose) 15 gm Q15M PRN PO DECREASED GLUCOSE; Start 12/07/18 at 13:30 Glucose (Glutose) 22.5 gm Q15M PRN PO DECREASED GLUCOSE; Start 12/07/18 at 13:30 Dextrose (D50w Syringe) 25 ml Q15M PRN IV DECREASED GLUCOSE; Start 12/07/18 at 13:30 Dextrose (D50w Syringe) 50 ml Q15M PRN IV DECREASED GLUCOSE; Start 12/07/18 at 13:30 Glucagon (Glucagen) 1 mg Q15M PRN IM DECREASED GLUCOSE; Start 12/07/18 at 13:30 Glucose (Glutose) 15 gm Q15M PRN BUCCAL DECREASED GLUCOSE; Start 12/07/18 at 13:30 Amlodipine Besylate (Norvasc) 5 mg DAILY PO Last administered on 12/10/18 08:22; Admin Dose 5 MG; Start 12/07/18 at 18:00 Aspirin (Halfprin) 81 mg DAILY PO Last administered on 12/10/18 08:22; Admin Dose 81 MG; Start 12/08/18 at 18:00 Calcium Acetate (Phoslo) 667 mg WITH MEALS PO Last administered on 12/10/18 11:13; Admin Dose 667 MG; Start 12/07/18 at 18:00 Carvedilol (Coreg) 25 mg BID PO Last administered on 12/10/18 08:23; Admin Dose 25 MG; Start 12/07/18 at 21:00 Escitalopram Oxalate (Lexapro) 10 mg DAILY PO Last administered on 12/10/18 08:22; Admin Dose 10 MG; Start 12/07/18 at 18:00 Hydralazine HCl (Apresoline) 50 mg QID PO Last administered on 12/10/18 12:38; Admin Dose 50 MG; Start 12/07/18 at 21:00 Linagliptin (Tradjenta) 5 mg DAILY PO Last administered on 12/10/18 08:22; Admin Dose 5 MG; Start 12/07/18 at 18:00 Sertraline HCl (Zoloft) 50 mg DAILY PO Last administered on 12/10/18 08:22; Admin Dose 50 MG; Start 12/07/18 at 18:00 Pantoprazole (Protonix Tab) 40 mg DAILY@06 PO Last administered on 12/10/18 05:32; Admin Dose 40 MG; Start 12/07/18 at 18:00 Heparin Sodium (Porcine) (Heparin (5000 Units/1ml)) 5,000 unit Q12 SC Last administered on 12/10/18 08:31; Admin Dose 5,000 UNIT; Start 12/07/18 at 18:00 Diphenhydramine HCl (Benadryl) 25 mg Q6H PRN IV itching Last administered on 12/08/18 02:28; Admin Dose 25 MG; Start 12/07/18 at 15:00 Naloxone HCl (Narcan) 0.2 mg Q2M PRN IV DECREASED REPIRATORY RATE Last administered on 12/08/18 21:07; Admin Dose 0.2 MG; Start 12/08/18 at 21:30 Albumin Human 100 ml @ 100 mls/hr WITH DIALYSIS PRN IV SBP <90 DURING DIALYSIS ; Start 12/09/18 at 10:00 Piperacillin Sod/ Tazobactam Sod 50 ml @ 25 mls/hr Q12 IVPB Last administered on 12/10/18 08:21; Admin Dose 25 MLS/HR; Start 12/09/18 at 13:45 Allergies: Coded Allergies: No Known Drug Allergies (Unverified Allergy, Unknown, 11/28/17) Uncoded Allergies: PLASTIC TAPE (Adverse Reaction, Mild, ITCHING, 07/10/17) Social History Smoking Status: Never smoker Exam/Review of Systems Vital Signs Vitals Vital Signs Date Temp Pulse Resp B/P (MAP) Pulse Ox O2 O2 Flow FiO2 Time Delivery Rate 12/10/18 98.8 60 20 100/55 97 Nasal 15:30 (70) Cannula 12/10/18 2.0 08:00 Intake and Output 12/09/18 12/09/18 12/10/18 1515:00 23:00 07:00 IntakeIntake Total 300 ml 650 ml OutputOutput Total 2600 ml BalanceBalance -2600 ml 300 ml 650 ml Exam Exam General: no acute distress HEENT: NC/AT. pupils are equal. round. NECK: NO JVD. no stridor. CV: RRR. systolic murmur; no gallop or rubs. PULM: no wheezing or rhonchi. GI: SOFT, NT, ND, no rebound or guarding Extremity: trace B/L LE edema. no clubbing. neuro: awake and alert, OX3. Psych: calm and pleasant rectal: deferred Chest: Right-sided single-chamber ICD in place EKG showed normal sinus rhythm with first-degree AV block. Echocardiogram was personally reviewed which shows: Normal left ventricular systolic function. Ejection fraction is visually estimated at 65 %. Tissue Doppler/Mitral Doppler indices are consistent with pseudonormalization with mildly elevated left atrial pressure (Stage II diastolic dysfunction). These segments of the LV are hypokinetic anteroseptum segment. Mitral valve leaflets appear mildly thickened. Mild mitral annular calcification. Mild mitral valve regurgitation. Aortic valve not well visualized. Moderate aortic stenosis. Aortic valve Max velocity 2.81 m/sec. Max PG 32.00 mmHg. Mean PG 18.00 mmHg. Aortic cusps appear mildly calcified. Trace aortic valve regurgitation. Normal appearance of the tricuspid valve. Right ventricular systolic pressure is consistent with mild pulmonary hypertension. Estimated peak PA systolic pressure 40 mmHg. There is mild tricuspid regurgitation. Dilated IVC with respiratory collapse consistent with elevated right atrial pressure. Labs Result Diagram: 12/10/18 0512 12/10/18 0513 Results 24hrs Laboratory Tests Test 12/09/18 17:23 12/09/18 20:41 12/10/18 05:12 12/10/18 05:13 Bedside Glucose 100 152 White Blood Count 7.9 Red Blood Count 4.27 Hemoglobin 12.2 Hematocrit 38.7 Mean Corpuscular 90.6 Volume Mean Corpuscular 28.6 L Hemoglobin Mean Corpuscular 31.5 L Hemoglobin Concent Red Cell 14.9 H Distribution Width Platelet Count 202 Mean Platelet Volume 10.2 Immature 0.600 H Granulocytes % Neutrophils % 61.8 Lymphocytes % 18.4 Monocytes % 14.6 H Eosinophils % 4.0 Basophils % 0.6 Nucleated Red Blood 0.3 H Cells % Immature 0.050 H Granulocytes # Neutrophils # 4.9 Lymphocytes # 1.5 Monocytes # 1.2 H Eosinophils # 0.3 Basophils # 0.1 Nucleated Red Blood 0.0 Cells # Sodium Level 140 Potassium Level 3.8 Chloride Level 96 L Carbon Dioxide Level 30 Anion Gap 14 H Blood Urea Nitrogen 15 Creatinine 4.90 #H Est Glomerular Filtrat Rate mL/min Glucose Level 104 Calcium Level 8.7 Phosphorus Level 4.2 # Magnesium Level 1.9 Test 12/10/18 07:52 12/10/18 11:10 Bedside Glucose 99 206 Medications Medications Current Medications Nitroglycerin (Nitroglycerin (Sl Tab) 0.4 Mg) 1 tab Q5M UP TO 3 DOSES PRN SL .CHEST PAIN Last administered on 12/07/18at 08:23; Admin Dose 1 TAB; Start 12/07/18 at 08:00 Dextrose (D50w Syringe) ONCE PRN IV DECREASED GLUCOSE Last administered on 12/07/18at 09:53; Admin Dose 100 ML; Start 12/07/18 at 09:00 Sodium Chloride 1,000 ml @ 0 mls/hr Q0M PRN IV TO KEEP SBP ABOVE 90; Start 12/07/18 at 10:30 Hydralazine HCl (Apresoline) 10 mg Q6H PRN PO SBP above 160; Start 12/07/18 at 12:00 Oxycodone/ Acetaminophen (Percocet (5/ 325)) 1 tab Q6 PRN PO MODERATE PAIN LEVEL 4-6 Last administered on 12/08/18at 15:34; Admin Dose 1 TAB; Start 12/07/18 at 13:00 Zolpidem Tartrate (Ambien) 10 mg QHS PRN PO INSOMNIA; Start 12/07/18 at 13:00 IV Flush (NS 3 ml) 3 ml PER PROTOCOL IV ; Start 12/07/18 at 13:00 Lorazepam (Ativan) 0.5 mg Q8H PRN PO .ANXIETY; Start 12/07/18 at 13:00 Ondansetron HCl (Zofran Inj) 4 mg Q6H PRN IV NAUSEA/VOMITING; Start 12/07/18 at 13:00 Acetaminophen (Tylenol Tab) 650 mg Q6H PRN PO .PAIN 1-3 OR TEMP; Start 12/07/18 at 13:00 Diagnostic Test (Pha) (Accu-Chek) 1 ea 02 XX ; Start 12/08/18 at 02:00 Insulin Aspart (Novolog Insulin Pen) NOVOLOG *MODERATE* ALGORITHM WITH MEALS BEDTIME SC Last administered on 12/10/18 12:12; Admin Dose 4 UNIT; Start 12/07/18 at 18:00 Miscellaneous Information 1 ea NOTE XX ; Start 12/07/18 at 13:30 Glucose (Glutose) 15 gm Q15M PRN PO DECREASED GLUCOSE; Start 12/07/18 at 13:30 Glucose (Glutose) 22.5 gm Q15M PRN PO DECREASED GLUCOSE; Start 12/07/18 at 13:30 Dextrose (D50w Syringe) 25 ml Q15M PRN IV DECREASED GLUCOSE; Start 12/07/18 at 13:30 Dextrose (D50w Syringe) 50 ml Q15M PRN IV DECREASED GLUCOSE; Start 12/07/18 at 13:30 Glucagon (Glucagen) 1 mg Q15M PRN IM DECREASED GLUCOSE; Start 12/07/18 at 13:30 Glucose (Glutose) 15 gm Q15M PRN BUCCAL DECREASED GLUCOSE; Start 12/07/18 at 13:30 Amlodipine Besylate (Norvasc) 5 mg DAILY PO Last administered on 12/10/18 08:22; Admin Dose 5 MG; Start 12/07/18 at 18:00 Aspirin (Halfprin) 81 mg DAILY PO Last administered on 12/10/18 08:22; Admin Dose 81 MG; Start 12/08/18 at 18:00 Calcium Acetate (Phoslo) 667 mg WITH MEALS PO Last administered on 12/10/18 11:13; Admin Dose 667 MG; Start 12/07/18 at 18:00 Carvedilol (Coreg) 25 mg BID PO Last administered on 12/10/18 08:23; Admin Dose 25 MG; Start 12/07/18 at 21:00 Escitalopram Oxalate (Lexapro) 10 mg DAILY PO Last administered on 12/10/18 08:22; Admin Dose 10 MG; Start 12/07/18 at 18:00 Hydralazine HCl (Apresoline) 50 mg QID PO Last administered on 12/10/18 12:38; Admin Dose 50 MG; Start 12/07/18 at 21:00 Linagliptin (Tradjenta) 5 mg DAILY PO Last administered on 12/10/18 08:22; Admin Dose 5 MG; Start 12/07/18 at 18:00 Sertraline HCl (Zoloft) 50 mg DAILY PO Last administered on 12/10/18 08:22; Admin Dose 50 MG; Start 12/07/18 at 18:00 Pantoprazole (Protonix Tab) 40 mg DAILY@06 PO Last administered on 12/10/18 05:32; Admin Dose 40 MG; Start 12/07/18 at 18:00 Heparin Sodium (Porcine) (Heparin (5000 Units/1ml)) 5,000 unit Q12 SC Last administered on 12/10/18 08:31; Admin Dose 5,000 UNIT; Start 12/07/18 at 18:00 Diphenhydramine HCl (Benadryl) 25 mg Q6H PRN IV itching Last administered on 12/08/18 02:28; Admin Dose 25 MG; Start 12/07/18 at 15:00 Naloxone HCl (Narcan) 0.2 mg Q2M PRN IV DECREASED REPIRATORY RATE Last administered on 12/08/18 21:07; Admin Dose 0.2 MG; Start 12/08/18 at 21:30 Albumin Human 100 ml @ 100 mls/hr WITH DIALYSIS PRN IV SBP <90 DURING DIALYSIS; Start 12/09/18 at 10:00 Piperacillin Sod/ Tazobactam Sod 50 ml @ 25 mls/hr Q12 IVPB Last administered on 12/10/18 08:21; Admin Dose 25 MLS/HR; Start 12/09/18 at 13:45 BISI MARTINS MD Dec 10, 2018 16:41
--- NOTE | 2018-12-10 18:16 | PN ---
DATE: 12/10/2018 SUBJECTIVE: The patient was seen status post abdominal ultrasound which did not show significant dandre unt of ascites, so paracentesis was not performed. The patient is overall feeling better. I discuss ed with nursing staff. On the monitor, the patient has frequent PVCs and bigeminy. We will consult cardiology for further recommendations prior to discharge. The patient has more of tendency for eli ycardia. PHYSICAL EXAMINATION: VITAL SIGNS: Temperature 98.3, pulse 60, respirations 18, blood pressure 114/56, saturation 97%. GENERAL: No acute distress. HEENT: Normocephalic. The patient is pale. CARDIOVASCULAR: S1, S2. Positive systolic ejection murmur heard throughout. LUNGS: Clear. ABDOMEN: Soft, nontender, distended, but better. EXTREMITIES: No clubbing, cyanosis or edema. LABORATORY DATA: White count is 7.9, hemoglobin 12.2, hematocrit 39, platelet count 202, neutrophils 62%, lymphs 18%. Chemistry: Sodium 140, potassium 3.8, chloride 96, bicarbonate 30, BUN is 15, cre atinine 4.9, glucose of 104. Hepatitis B is negative. Occult blood negative. MRSA screening is pen ding. DIAGNOSTIC DATA: Chest x-ray which was done 2 days ago does show mildly increased bibasilar alveolar infiltrates. Interstitial edema is improving. Abdominal ultrasound done today shows the paracentes is was not performed at this time since there was insufficient amount of ascites to safely perform th e procedure. MEDICATIONS: Reviewed and include: 1. Zosyn. 2. Albumin. 3. Narcan. 4. Aspirin. 5. Accu-Cheks. 6. Coreg 25 b.i.d. 7. Hydralazine 50 q.i.d. 8. Norvasc 5 mg daily. 9. PhosLo 667 t.i.d. 10. Lexapro 10 mg daily. 11. Tradjenta 5 mg daily. 12. Zoloft 50 mg daily. 13. Protonix 40 mg b.i.d. 14. Heparin 5000 q.12. 15. Benadryl p.r.n. 16. Hypoglycemia protocol as directed. 17. Percocet p.r.n. 18. Ambien p.r.n. 19. Zofran p.r.n. 20. Tylenol p.r.n. 21. Hydralazine p.r.n. 22. Nitroglycerin p.r.n. ASSESSMENT AND PLAN: This is a 78-year-old overweight female with history of end-stage tomy l disease, coronary artery disease, status post CABG, diabetes mellitus, hypertension, presented with chest pain and shortness of breath, was found to have severe hyperkalemia and fluid overload state. 1. Respiratory. She is doing better as she appeared to be treated with antibiotics. Follow up mejia rrow chest x-ray. Dialysis was done for fluid removal. Clinically, much improved. Follow up sputum culture and MRSA screening. 2. Infectious disease, empirically on Zosyn. May deescalate antibiotics and pending above cultures and chest x-ray results. 3. Abdominal pain with evidence of large ascites on CT scan. Ultrasound did not show that. Empiric ally on antibiotics. 4. Gastrointestinal. Hemoglobin and hematocrit is stable. No need for transfusion. 5. History of back pain. Pain control is being provided as needed. Physical therapy will be reques tessy. 6. Diarrhea, resolved. Stool studies are negative. 7. Diabetes mellitus, controlled with Tradjenta and insulin sliding scale. 8. Disposition: Likely tomorrow after cardiology evaluation as patient has premature ventricular co ntractions and bigeminy. Follow up 2D echo results. This patient does have systolic ejection murmur . Disposition is soon. Dictated By: AIDA PARRY/KIM Conf#: [id number] DID#: [id number] CC: DELILAH MOONEY MD;*EndCC*
[2018-12-10] MEDS: ACETAMINOPHEN 325 MG TAB PO PRN (19:23)
[2018-12-11] VITALS (11 sets, daily range): BP systolic 96–126; BP diastolic 53–59; PULSE 56–63; RESP 18–20
[2018-12-11] MEDS: ACCU-CHEK XX SCH (02:00)
[2018-12-11] MEDS: PANTOPRAZOLE (EC) 40 MG TAB PO SCH (06:38)
[2018-12-11] MEDS: INSULIN ASPART [NOVOLOG] 3 ML PEN SC SCH ×4 (07:39→21:11)
[2018-12-11] MEDS: PIPER-TAZO 2.25 GM (PMX) 50 ML IVPB SCH ×2 (08:31→21:32)
[2018-12-11] MEDS: ASPIRIN (EC) 81 MG TAB PO SCH (08:32)
[2018-12-11] MEDS: AMLODIPINE 5 MG TAB PO SCH (08:32)
[2018-12-11] MEDS: CALCIUM ACETATE 667 MG CAP PO SCH ×3 (08:32→17:20)
[2018-12-11] MEDS: LINAGLIPTIN 5 MG TABLET PO SCH (08:33)
[2018-12-11] MEDS: HEPARIN 5,000 UNIT/1 ML VIAL SC SCH ×2 (08:59→21:37)
[2018-12-11] MEDS: ESCITALOPRAM 10 MG TAB PO SCH (09:00)
[2018-12-11] MEDS: SERTRALINE 50 MG TAB PO SCH (09:00)
--- NOTE | 2018-12-11 11:21 | CONS ---
Consult Date/Type/Reason Admit Date/Time Dec 07, 2018 at 09:12 Initial Consult Date 12/10/18 Requesting Provider: AIDA MORILLO MD Date/Time of Note DATE: 12/11/18 TIME: 11:19 Subjective Cardiology follow-up progress note Subjective: Discussed with the staff. Telemetry was reviewed. Patient with no chest pain or pressure now. No palpitation now. Objective: General: no acute distress HEENT: NC/AT. pupils are equal. round. NECK: NO JVD. no stridor. CV: RRR. systolic murmur; no gallop or rubs. PULM: no wheezing or rhonchi. GI: SOFT, NT, ND, no rebound or guarding Extremity: trace B/L LE edema. no clubbing. neuro: awake and alert, OX3. Psych: calm and pleasant rectal: deferred Chest: Right-sided single-chamber ICD in place EKG showed normal sinus rhythm with first-degree AV block. Echocardiogram was personally reviewed which shows: Normal left ventricular systolic function. Ejection fraction is visually estimated at 65 %. Tissue Doppler/Mitral Doppler indices are consistent with pseudonormalization with mildly elevated left atrial pressure (Stage II diastolic dysfunction). These segments of the LV are hypokinetic anteroseptum segment. Mitral valve leaflets appear mildly thickened. Mild mitral annular calcification. Mild mitral valve regurgitation. Aortic valve not well visualized. Moderate aortic stenosis. Aortic valve Max velocity 2.81 m/sec. Max PG 32.00 mmHg. Mean PG 18.00 mmHg. Aortic cusps appear mildly calcified. Trace aortic valve regurgitation. Normal appearance of the tricuspid valve. Right ventricular systolic pressure is consistent with mild pulmonary hypertension. Estimated peak PA systolic pressure 40 mmHg. There is mild tricuspid regurgitation. Dilated IVC with respiratory collapse consistent with elevated right atrial pressure. Objective Vitals Vital Signs Date Temp Pulse Resp B/P (MAP) Pulse Ox O2 O2 Flow FiO2 Time Delivery Rate 12/11/18 61 08:55 12/11/18 Nasal 2.0 07:39 Cannula 12/11/18 98.0 20 126/59 97 07:24 (81) Intake and Output 12/10/18 12/10/18 12/11/18 1414:59 22:59 06:59 IntakeIntake Total 50 ml 720 ml BalanceBalance 50 ml 720 ml Results/Medications Result Diagram: 12/11/1851612/11/18516 Results 24 hrs Laboratory Tests Test 12/10/18 17:06 12/10/18 23:05 12/11/18 05:17 12/11/18 07:37 Bedside Glucose 143 135 109 White Blood Count 7.7 Red Blood Count 4.21 Hemoglobin 11.9 L Hematocrit 37.6 Mean Corpuscular 89.3 Volume Mean Corpuscular 28.3 L Hemoglobin Mean Corpuscular 31.6 L Hemoglobin Concent Red Cell 15.1 H Distribution Width Platelet Count 161 # Mean Platelet Volume 10.3 Immature 0.400 Granulocytes % Neutrophils % 58.7 Lymphocytes % 20.2 Monocytes % 14.8 H Eosinophils % 4.9 Basophils % 1.0 Nucleated Red Blood 0.3 H Cells % Immature 0.030 Granulocytes # Neutrophils # 4.5 Lymphocytes # 1.6 Monocytes # 1.1 H Eosinophils # 0.4 Basophils # 0.1 Nucleated Red Blood 0.0 Cells # Sodium Level 137 Potassium Level 3.9 Chloride Level 94 L Carbon Dioxide Level 29 Anion Gap 14 H Blood Urea Nitrogen 24 H Creatinine 6.01 H Est Glomerular Filtrat Rate mL/min Glucose Level 107 Calcium Level 8.2 L Phosphorus Level 4.1 Magnesium Level 1.8 Ammonia < 9 L Triglycerides Level 130 Cholesterol Level 121 LDL Cholesterol, 56 Calculated HDL Cholesterol 39 Cholesterol/HDL 3.1 Ratio Home Meds Active Scripts Morphine Sulfate* (Oramorph SR*) 15 Mg Tablet.sa, 15 MG PO Q12, #30 TAB.SA Prov:AIDA MORILLO MD 07/11/17 Linagliptin (TRADJENTA) 5 Mg Tablet, 5 MG PO DAILY for 30 Days, TAB Prov:AIDA MORILLO MD 01/02/17 Zolpidem Tartrate* (Ambien*) 10 Mg Tablet, 10 MG PO QHS PRN for INSOMNIA for 30 Days, TAB Prov:AIDA MORILLO MD 01/02/17 Calcium Acetate* (Calcium Acetate*) 667 Mg Capsule, 667 MG PO TID for 30 Days, CAP Prov:AIDA MORILLO MD 01/02/17 Reported Medications Escitalopram Oxalate* (Escitalopram Oxalate*) 10 Mg Tablet, 10 MG PO DAILY, #30 TAB 11/28/17 [omegaXL] No Conflict Check, 2 CAP ORAL DAILY for supplement for 30 Days 11/28/17 Multivitamin with Minerals (Multivitamins with Minerals) 1 Each Tablet, 1 EACH PO, TAB 11/28/17 Oxycodone HCl/Acetaminophen (Oxycodone-Acetaminophen 5-325) 1 Each Tablet, 1 EACH PO, TAB 11/28/17 Hydralazine Hcl* (Hydralazine Hcl*) 50 Mg Tab, 50 MG PO QID, #120 TAB 11/28/17 Sertraline Hcl* (Sertraline Hcl*) 50 Mg Tablet, 50 MG PO DAILY, #30 TAB 07/10/17 Carvedilol* (Carvedilol*) 25 Mg Tablet, 25 MG PO BID, #60 TAB 07/10/17 Amlodipine Besylate* (Norvasc*) 5 Mg Tablet, 5 MG PO DAILY, TAB 07/10/17 Furosemide* (Furosemide*) 40 Mg Tablet, 40 MG PO DAILY, TAB 07/10/17 Aspirin (Low Dose Aspirin) 81 Mg Tablet.dr, 81 MG PO DAILY 03/02/15 Medications Current Medications Nitroglycerin (Nitroglycerin (Sl Tab) 0.4 Mg) 1 tab Q5M UP TO 3 DOSES PRN SL .CHEST PAIN Last administered on 12/07/18at 08:23; Admin Dose 1 TAB; Start 12/07/18 at 08:00 Dextrose (D50w Syringe) ONCE PRN IV DECREASED GLUCOSE Last administered on 12/07/18at 09:53; Admin Dose 100 ML; Start 12/07/18 at 09:00 Sodium Chloride 1,000 ml @ 0 mls/hr Q0M PRN IV TO KEEP SBP ABOVE 90; Start 12/07/18 at 10:30 Hydralazine HCl (Apresoline) 10 mg Q6H PRN PO SBP above 160; Start 12/07/18 at 12:00 Oxycodone/ Acetaminophen (Percocet (5/ 325)) 1 tab Q6 PRN PO MODERATE PAIN LEVEL 4-6 Last administered on 12/08/18at 15:34; Admin Dose 1 TAB; Start 12/07/18 at 13:00 Zolpidem Tartrate (Ambien) 10 mg QHS PRN PO INSOMNIA; Start 12/07/18 at 13:00 IV Flush (NS 3 ml) 3 ml PER PROTOCOL IV ; Start 12/07/18 at 13:00 Lorazepam (Ativan) 0.5 mg Q8H PRN PO .ANXIETY; Start 12/07/18 at 13:00 Ondansetron HCl (Zofran Inj) 4 mg Q6H PRN IV NAUSEA/VOMITING; Start 12/07/18 at 13:00 Acetaminophen (Tylenol Tab) 650 mg Q6H PRN PO .PAIN 1-3 OR TEMP Last administered on 12/10/18 19:23; Admin Dose 650 MG; Start 12/07/18 at 13:00 Diagnostic Test (Pha) (Accu-Chek) 1 ea 02 XX ; Start 12/08/18 at 02:00 Insulin Aspart (Novolog Insulin Pen) NOVOLOG *MODERATE* ALGORITHM WITH MEALS BEDTIME SC Last administered on 12/10/18 17:10; Admin Dose 2 UNIT; Start 12/07/18 at 18:00 Miscellaneous Information 1 ea NOTE XX ; Start 12/07/18 at 13:30 Glucose (Glutose) 15 gm Q15M PRN PO DECREASED GLUCOSE; Start 12/07/18 at 13:30 Glucose (Glutose) 22.5 gm Q15M PRN PO DECREASED GLUCOSE; Start 12/07/18 at 13:30 Dextrose (D50w Syringe) 25 ml Q15M PRN IV DECREASED GLUCOSE; Start 12/07/18 at 13:30 Dextrose (D50w Syringe) 50 ml Q15M PRN IV DECREASED GLUCOSE; Start 12/07/18 at 13:30 Glucagon (Glucagen) 1 mg Q15M PRN IM DECREASED GLUCOSE; Start 12/07/18 at 13:30 Glucose (Glutose) 15 gm Q15M PRN BUCCAL DECREASED GLUCOSE; Start 12/07/18 at 13:30 Amlodipine Besylate (Norvasc) 5 mg DAILY PO Last administered on 12/11/18 08:32; Admin Dose 5 MG; Start 12/07/18 at 18:00 Aspirin (Halfprin) 81 mg DAILY PO Last administered on 12/11/18 08:32; Admin Dose 81 MG; Start 12/08/18 at 18:00 Calcium Acetate (Phoslo) 667 mg WITH MEALS PO Last administered on 12/11/18 08:32; Admin Dose 667 MG; Start 12/07/18 at 18:00 Carvedilol (Coreg) 25 mg BID PO Last administered on 12/11/18 08:33; Admin Dose 25 MG; Start 12/07/18 at 21:00 Escitalopram Oxalate (Lexapro) 10 mg DAILY PO Last administered on 12/10/18 08:22; Admin Dose 10 MG; Start 12/07/18 at 18:00 Hydralazine HCl (Apresoline) 50 mg QID PO Last administered on 12/11/18 08:32; Admin Dose 50 MG; Start 12/07/18 at 21:00 Linagliptin (Tradjenta) 5 mg DAILY PO Last administered on 12/11/18 08:33; Admin Dose 5 MG; Start 12/07/18 at 18:00 Sertraline HCl (Zoloft) 50 mg DAILY PO Last administered on 12/10/18 08:22; Admin Dose 50 MG; Start 12/07/18 at 18:00 Pantoprazole (Protonix Tab) 40 mg DAILY@06 PO Last administered on 12/11/18 06:38; Admin Dose 40 MG; Start 12/07/18 at 18:00 Heparin Sodium (Porcine) (Heparin (5000 Units/1ml)) 5,000 unit Q12 SC Last administered on 12/11/18 08:59; Admin Dose 5,000 UNIT; Start 12/07/18 at 18:00 Diphenhydramine HCl (Benadryl) 25 mg Q6H PRN IV itching Last administered on 12/08/18 02:28; Admin Dose 25 MG; Start 12/07/18 at 15:00 Naloxone HCl (Narcan) 0.2 mg Q2M PRN IV DECREASED REPIRATORY RATE Last admi nistered on 12/08/18 21:07; Admin Dose 0.2 MG; Start 12/08/18 at 21:30 Albumin Human 100 ml @ 100 mls/hr WITH DIALYSIS PRN IV SBP <90 DURING DIALYSIS; Start 12/09/18 at 10:00 Piperacillin Sod/ Tazobactam Sod 50 ml @ 25 mls/hr Q12 IVPB Last administered on 12/11/18 08:31; Admin Dose 25 MLS/HR; Start 12/09/18 at 13:45 Assessment/Plan Hospital Course (Demo Recall) 1. Possible chest pain : it has resolved with negative troponin 2. Frequent PVCs and bigeminy currently back in sinus rhythm 3. History of coronary artery disease status coronary bypass graft 4. History of severe cardiomyopathy versus VT status post ICD placement 5. Renal failure on dialysis 6. Hypertension 7. Diabetes 8. Dyslipidemia 9. Severe hyperkalemia: Secondary to noncompliance with hemodialysis Recommendations: Hemodialysis to be managed as per renal team. Continue with Coreg Patient already has ICD in place. I have tried calling multiple companies to see with [employer]. For have not been able to find out 1 complaining his device is I can have it interrogated Aspirin to be continued Diabetic management as per internal medicine Electrolyte to be corrected as needed We will start low-dose statin as well Thank you for his referral. We will continue to follow along with you BISI MARTINS MD [facility] BISI MARTINS MD Dec 11, 2018 11:21
[2018-12-11] MEDS ORDERED: VANCOMYCIN IV PER PHARMACY XX SCH (13:00)
[2018-12-11] MEDS ORDERED: VANCOMYCIN HCL 1.5 GM in SOD CHLORIDE 0.9% 250 ML IVPB SCH (14:30)
--- NOTE | 2018-12-11 15:37 | CONS ---
Assessment/Plan Assessment/Plan Assessment/Plan (Daily) 1 hx ESRD with Severe hyperkalemia likely secondary to noncompliance better 2. Severe metabolic acidosis likely secondary to missing dialysis session/diarrhea.better 3. htn 4. History of fall. 5. Diarrhea.better 6. History of back pain with a history of T11 compression fracture. 7. Diabetes. 8. Anemia. 9. History of coronary artery disease. 10 Pul edema 11 BIGEMY 12 CM s/p AICD plan -Patient is refusing to be on dialysis 3 times a week only gets dialysis twice a week - will do 2nd session tomorrow for fluid removal and possibly also before discharge -Renal diet low K diet -Renally dose all meds Consultation Date/Type/Reason Admit Date/Time Dec 07, 2018 at 09:12 Initial Consult Date Requesting Provider: AIDA MORILLO MD Date/Time of Note DATE: 12/11/18 TIME: 15:35 24 HR Interval Summary Free Text/Dictation Has some bigeminy is noted seen by cardiology Exam/Review of Systems Exam Vitals Vital Signs Date Temp Pulse Resp B/P (MAP) Pulse Ox O2 O2 Flow FiO2 Time Delivery Rate 12/11/18 97.8 59 18 106/55 98 Nasal 15:17 (72) Cannula 12/11/18 3.0 13:33 Intake and Output 12/10/18 12/10/18 12/11/18 1515:00 23:00 07:00 IntakeIntake Total 50 ml 720 ml BalanceBalance 50 ml 720 ml Exam Neck: supple Respiratory: clear to auscultation Cardiovascular: regular rate and rhythm Gastrointestinal: soft, bowel sounds (+) Extremities: No edema Results Result Diagram: 12/11/18 0517 12/11/18 0517 Results 24hrs Laboratory Tests Test 12/10/18 17:06 12/10/18 23:05 12/11/18 05:17 12/11/18 07:37 Bedside Glucose 143 135 109 White Blood Count 7.7 Red Blood Count 4.21 Hemoglobin 11.9 L Hematocrit 37.6 Mean Corpuscular 89.3 Volume Mean Corpuscular 28.3 L Hemoglobin Mean Corpuscular 31.6 L Hemoglobin Concent Red Cell 15.1 H Distribution Width Platelet Count 161 # Mean Platelet Volume 10.3 Immature 0.400 Granulocytes % Neutrophils % 58.7 Lymphocytes % 20.2 Monocytes % 14.8 H Eosinophils % 4.9 Basophils % 1.0 Nucleated Red Blood 0.3 H Cells % Immature 0.030 Granulocytes # Neutrophils # 4.5 Lymphocytes # 1.6 Monocytes # 1.1 H Eosinophils # 0.4 Basophils # 0.1 Nucleated Red Blood 0.0 Cells # Sodium Level 137 Potassium Level 3.9 Chloride Level 94 L Carbon Dioxide Level 29 Anion Gap 14 H Blood Urea Nitrogen 24 H Creatinine 6.01 H Est Glomerular Filtrat Rate mL/min Glucose Level 107 Calcium Level 8.2 L Phosphorus Level 4.1 Magnesium Level 1.8 Ammonia < 9 L Triglycerides Level 130 Cholesterol Level 121 LDL Cholesterol, 56 Calculated HDL Cholesterol 39 Cholesterol/HDL 3.1 Ratio Test 12/11/18 11:18 Bedside Glucose 182 Medications Medication Current Medications Nitroglycerin (Nitroglycerin (Sl Tab) 0.4 Mg) 1 tab Q5M UP TO 3 DOSES PRN SL .CHEST PAIN Last administered on 12/07/18at 08:23; Admin Dose 1 TAB; Start 12/07/18 at 08:00 Dextrose (D50w Syringe) ONCE PRN IV DECREASED GLUCOSE Last administered on 12/07/18at 09:53; Admin Dose 100 ML; Start 12/07/18 at 09:00 Sodium Chloride 1,000 ml @ 0 mls/hr Q0M PRN IV TO KEEP SBP ABOVE 90; Start 12/07/18 at 10:30 Hydralazine HCl (Apresoline) 10 mg Q6H PRN PO SBP above 160; Start 12/07/18 at 12:00 Oxycodone/ Acetaminophen (Percocet (5/ 325)) 1 tab Q6 PRN PO MODERATE PAIN LEVEL 4-6 Last administered on 12/08/18at 15:34; Admin Dose 1 TAB; Start 12/07/18 at 13:00 Zolpidem Tartrate (Ambien) 10 mg QHS PRN PO INSOMNIA; Start 12/07/18 at 13:00 IV Flush (NS 3 ml) 3 ml PER PROTOCOL IV ; Start 12/07/18 at 13:00 Lorazepam (Ativan) 0.5 mg Q8H PRN PO .ANXIETY; Start 12/07/18 at 13:00 Ondansetron HCl (Zofran Inj) 4 mg Q6H PRN IV NAUSEA/VOMITING; Start 12/07/18 at 13:00 Acetaminophen (Tylenol Tab) 650 mg Q6H PRN PO .PAIN 1-3 OR TEMP Last administ ered on 12/10/18 19:23; Admin Dose 650 MG; Start 12/07/18 at 13:00 Diagnostic Test (Pha) (Accu-Chek) 1 ea 02 XX ; Start 12/08/18 at 02:00 Insulin Aspart (Novolog Insulin Pen) NOVOLOG *MODERATE* ALGORITHM WITH MEALS BEDTIME SC Last administered on 12/11/18 11:22; Admin Dose 4 UNIT; Start 12/07/18 at 18:00 Miscellaneous Information 1 ea NOTE XX ; Start 12/07/18 at 13:30 Glucose (Glutose) 15 gm Q15M PRN PO DECREASED GLUCOSE; Start 12/07/18 at 13:30 Glucose (Glutose) 22.5 gm Q15M PRN PO DECREASED GLUCOSE; Start 12/07/18 at 13:30 Dextrose (D50w Syringe) 25 ml Q15M PRN IV DECREASED GLUCOSE; Start 12/07/18 at 13:30 Dextrose (D50w Syringe) 50 ml Q15M PRN IV DECREASED GLUCOSE; Start 12/07/18 at 13:30 Glucagon (Glucagen) 1 mg Q15M PRN IM DECREASED GLUCOSE; Start 12/07/18 at 13:30 Glucose (Glutose) 15 gm Q15M PRN BUCCAL DECREASED GLUCOSE; Start 12/07/18 at 13:30 Amlodipine Besylate (Norvasc) 5 mg DAILY PO Last administered on 12/11/18at 08:32; Admin Dose 5 MG; Start 12/07/18 at 18:00 Aspirin (Halfprin) 81 mg DAILY PO Last administered on 12/11/18at 08:32; Admin Dose 81 MG; Start 12/08/18 at 18:00 Calcium Acetate (Phoslo) 667 mg WITH MEALS PO Last administered on 12/11/18 11:17; Admin Dose 667 MG; Start 12/07/18 at 18:00 Carvedilol (Coreg) 25 mg BID PO Last administered on 12/11/18 08:33; Admin Dose 25 MG; Start 12/07/18 at 21:00 Escitalopram Oxalate (Lexapro) 10 mg DAILY PO Last administered on 12/10/18 08:22; Admin Dose 10 MG; Start 12/07/18 at 18:00 Linagliptin (Tradjenta) 5 mg DAILY PO Last administered on 12/11/18 08:33; Admin Dose 5 MG; Start 12/07/18 at 18:00 Sertraline HCl (Zoloft) 50 mg DAILY PO Last administered on 12/10/18 08:22; Admin Dose 50 MG; Start 12/07/18 at 18:00 Pantoprazole (Protonix Tab) 40 mg DAILY@06 PO Last administered on 12/11/18 06 :38; Admin Dose 40 MG; Start 12/07/18 at 18:00 Heparin Sodium (Porcine) (Heparin (5000 Units/1ml)) 5,000 unit Q12 SC Last administered on 12/11/18 08:59; Admin Dose 5,000 UNIT; Start 12/07/18 at 18:00 Diphenhydramine HCl (Benadryl) 25 mg Q6H PRN IV itching Last administered on 12/08/18 02:28; Admin Dose 25 MG; Start 12/07/18 at 15:00 Naloxone HCl (Narcan) 0.2 mg Q2M PRN IV DECREASED REPIRATORY RATE Last administered on 12/08/18 21:07; Admin Dose 0.2 MG; Start 12/08/18 at 21:30 Albumin Human 100 ml @ 100 mls/hr WITH DIALYSIS PRN IV SBP <90 DURING DIALYSIS; Start 12/09/18 at 10:00 Piperacillin Sod/ Tazobactam Sod 50 ml @ 25 mls/hr Q12 IVPB Last administered on 12/11/18 08:31; Admin Dose 25 MLS/HR; Start 12/09/18 at 13:45 Atorvastatin Calcium (Lipitor) 5 mg HS PO ; Start 12/11/18 at 21:00 Vancomycin HCl (Vanco Iv Per Pharmacy) VANCOMYCIN PER PHARMACY PER PROTOCOL XX ; Start 12/11/18 at 13:00 Vancomycin HCl 1.5 gm/Sodium Chloride 250 ml @ 83.333 mls/ hr ONCE IVPB Last administered on 12/11/18 14:28; Admin Dose 83.333 MLS/HR; Start 12/11/18 at 14:30; Stop 12/11/18 at 23:45 JOSSE THOMAS MD Dec 11, 2018 15:37
[2018-12-11] MEDS: ATORVASTATIN 10 MG TAB PO SCH (21:32)
[2018-12-12] VITALS (23 sets, daily range): BP systolic 95–134; BP diastolic 46–70; PULSE 54–70; RESP 18–20
[2018-12-12] MEDS: ACCU-CHEK XX SCH (02:42)
[2018-12-12] MEDS: ACETAMINOPHEN 325 MG TAB PO PRN (03:00)
[2018-12-12] MEDS: PANTOPRAZOLE (EC) 40 MG TAB PO SCH (05:10)
--- NOTE | 2018-12-12 06:48 | PN ---
DATE: 12/11/2018 SUBJECTIVE: The patient seen. The patient was positive for MRSA of the nares. The patient still co mplaining of cough and slight chest congestion. I appreciate cardiology input as patient has arrhyth guillermo. PHYSICAL EXAMINATION: VITAL SIGNS: Temperature is 97.8, pulse 63, respirations 20, blood pressure 99/56, some of her blood pressure meds were placed on hold. Saturation 97% on 2 liters. GENERAL: The patient is in no acute distress, pale. CARDIOVASCULAR: S1, S2. LUNGS: Faint cough, faint rhonchi bilaterally. ABDOMEN: Soft, nontender, not distended. EXTREMITIES: No clubbing, cyanosis, or edema. LABORATORY DATA: White count 7.7, hemoglobin 11.9, hematocrit 38, platelet count 161, neutrophils 59 %, 20%. Chemistry: Sodium 137, potassium 3.8, chloride 94, bicarbonate 29, BUN is 24, creatin ine 6.01, glucose 107. Stool for C. diff negative. MRSA positive. Chest x-ray was read today as fo llowing: Stable right-sided AICD, cardiomegaly, improving pulmonary vascular congestion, persistent patchy basilar atelectasis. There is previous chest x-ray was read as alveolar infiltrate. MEDICATIONS: 1. Lipitor 5 mg at bedtime. 2. Zosyn 3.375 IV q.12h. 3. Albumin mg daily. 4. Accu-Chek as directed, Coreg 25 b.i.d. 5. Hydralazine 50 q.i.d. 6. Norvasc 5 mg daily. 7. PhosLo 667 t.i.d. meals. 8. Lexapro 10 mg daily. 9. Tradjenta 5 mg daily. 10. Zoloft 50 mg daily. 11. mg daily. 12. Heparin 5000 q.12h 13. Benadryl p.r.n. 14. Hypoglycemia protocol as directed. 15. Percocet p.r.n. 16. Ambien p.r.n. 17. Zofran p.r.n. 18. Tylenol p.r.n. 19. Nitroglycerin p.r.n. ASSESSMENT AND PLAN: This is a 78-year-old overweight female with history of: 1. End-stage renal disease, coronary artery disease, status post CABG, diabetes mellitus, hypertensi on who presented with chest pain and shortness of breath, was found to have severe hyperkalemia and f luid overload state, pseudomonas. Continue antibiotics while in house with IV vancomycin and Zosyn. Otherwise, consider discharging home soon on Levaquin and doxycycline. Clinically better. Breathing treatment as needed. 2. Cardiovascular. Fluid removal by dialysis. This patient presented with fluid overload state. 3. Abdominal pain. No significant ascites to aspirate, remains empirically on antibiotics. Cough s uppressant will be provided as the cough is causing her abdominal pain. 4. Gastrointestinal. Hemoglobin and hematocrit stable. No need for transfusion. 5. Back pain. Patient is on p.r.n. opioids orally. 6. Diarrhea, resolved. Stool studies were negative. 7. Diabetes mellitus. Continue Tradjenta and insulin sliding scale. Glucose level in the low 100s. 8. End-stage renal disease, dialysis per nephrology team. DISPOSITION: Likely tomorrow as per request for physical therapy to see the patient. Soon. Dictated By: AIDA PARRY/KIM Conf#: [id number] DID#: [id number] CC: AIDA MORILLO MD;*EndCC*
[2018-12-12] MEDS: INSULIN ASPART [NOVOLOG] 3 ML PEN SC SCH ×4 (07:45→22:05)
[2018-12-12] MEDS: CALCIUM ACETATE 667 MG CAP PO SCH ×3 (07:45→17:34)
--- NOTE | 2018-12-12 09:22 | CONS ---
Consult Date/Type/Reason Admit Date/Time Dec 07, 2018 at 09:12 Initial Consult Date 12/10/18 Requesting Provider: AIDA MORILLO MD Date/Time of Note DATE: 12/12/18 TIME: 09:18 Subjective Cardiology follow-up progress note Subjective: Discussed with the staff. Telemetry was reviewed. pt remains in NSR /sinus bradycardia Patient with no chest pain or pressure now. No palpitation now. Patient complains of dizziness Objective: General: no acute distress HEENT: NC/AT. pupils are equal. round. NECK: NO JVD. no stridor. CV: RRR. systolic murmur; no gallop or rubs. PULM: no wheezing or rhonchi. GI: SOFT, NT, ND, no rebound or guarding Extremity: trace B/L LE edema. no clubbing. neuro: awake and alert, OX3. Psych: calm and pleasant rectal: deferred Chest: Right-sided single-chamber ICD in place EKG showed normal sinus rhythm with first-degree AV block. Echocardiogram was personally reviewed which shows: Normal left ventricular systolic function. Ejection fraction is visually estimated at 65 %. Tissue Doppler/Mitral Doppler indices are consistent with pseudonormalization with mildly elevated left atrial pressure (Stage II diastolic dysfunction). These segments of the LV are hypokinetic anteroseptum segment. Mitral valve leaflets appear mildly thickened. Mild mitral annular calcification. Mild mitral valve regurgitation. Aortic valve not well visualized. Moderate aortic stenosis. Aortic valve Max velocity 2.81 m/sec. Max PG 32.00 mmHg. Mean PG 18.00 mmHg. Aortic cusps appear mildly calcified. Trace aortic valve regurgitation. Normal appearance of the tricuspid valve. Right ventricular systolic pressure is consistent with mild pulmonary hypertension. Estimated peak PA systolic pressure 40 mmHg. There is mild tricuspid regurgitation. Dilated IVC with respiratory collapse consistent with elevated right atrial pressure. Objective Vitals Vital Signs Date Temp Pulse Resp B/P (MAP) Pulse Ox O2 O2 Flow FiO2 Time Delivery Rate 12/12/18 62 09:00 12/12/18 Nasal 2.0 08:07 Cannula 12/12/18 98.1 19 132/63 96 07:55 (86) Intake and Output 12/11/18 12/11/18 12/12/18 1515:00 23:00 07:00 IntakeIntake Total 250 ml 650 ml 120 ml BalanceBalance 250 ml 650 ml 120 ml Results/Medications Result Diagram: 12/12/18 0524 12/12/18 0822 Results 24 hrs Laboratory Tests Test 12/11/18 11:18 12/11/18 17:18 12/11/18 21:08 12/12/18 02:42 Bedside Glucose 182 140 187 105 Test 12/12/18 05:24 12/12/18 07:44 12/12/18 08:22 White Blood Count 8.1 Red Blood Count 4.24 Hemoglobin 11.8 L Hematocrit 37.2 Mean Corpuscular 87.7 Volume Mean Corpuscular 27.8 L Hemoglobin Mean Corpuscular 31.7 L Hemoglobin Concent Red Cell 14.9 H Distribution Width Platelet Count 154 Mean Platelet Volume 10.5 H Immature 0.900 H Granulocytes % Neutrophils % 60.7 Lymphocytes % 17.7 Monocytes % 14.0 H Eosinophils % 5.8 Basophils % 0.9 Nucleated Red Blood 0.0 Cells % Immature 0.070 H Granulocytes # Neutrophils # 5.0 Lymphocytes # 1.4 Monocytes # 1.1 H Eosinophils # 0.5 Basophils # 0.1 Nucleated Red Blood 0.0 Cells # Sodium Level 134 L 134 L Potassium Level 4.2 4.7 Chloride Level 94 L 95 L Carbon Dioxide Level 25 24 Anion Gap 15 H 15 H Blood Urea Nitrogen 33 H 33 H Creatinine 7.26 H 7.33 H Est Glomerular Filtrat Rate mL/min Glucose Level 109 118 Calcium Level 8.2 L 8.5 Phosphorus Level 4.0 Magnesium Level 1.8 Bedside Glucose 105 Home Meds Active Scripts Morphine Sulfate* (Oramorph SR*) 15 Mg Tablet.sa, 15 MG PO Q12, #30 TAB.SA Prov:AIDA MORILLO MD 07/11/17 Linagliptin (TRADJENTA) 5 Mg Tablet, 5 MG PO DAILY for 30 Days, TAB Prov:AIAD MORILLO MD 01/02/17 Zolpidem Tartrate* (Ambien*) 10 Mg Tablet, 10 MG PO QHS PRN for INSOMNIA for 30 Days, TAB Prov:AIDA MORILLO MD 01/02/17 Calcium Acetate* (Calcium Acetate*) 667 Mg Capsule, 667 MG PO TID for 30 Days, CAP Prov:AIDA MORILLO MD 01/02/17 Reported Medications Escitalopram Oxalate* (Escitalopram Oxalate*) 10 Mg Tablet, 10 MG PO DAILY, #30 TAB 11/28/17 [omegaXL] No Conflict Check, 2 CAP ORAL DAILY for supplement for 30 Days 11/28/17 Multivitamin with Minerals (Multivitamins with Minerals) 1 Each Tablet, 1 EACH PO, TAB 11/28/17 Oxycodone HCl/Acetaminophen (Oxycodone-Acetaminophen 5-325) 1 Each Tablet, 1 EACH PO, TAB 11/28/17 Hydralazine Hcl* (Hydralazine Hcl*) 50 Mg Tab, 50 MG PO QID, #120 TAB 11/28/17 Sertraline Hcl* (Sertraline Hcl*) 50 Mg Tablet, 50 MG PO DAILY, #30 TAB 07/10/17 Carvedilol* (Carvedilol*) 25 Mg Tablet, 25 MG PO BID, #60 TAB 07/10/17 Amlodipine Besylate* (Norvasc*) 5 Mg Tablet, 5 MG PO DAILY, TAB 07/10/17 Furosemide* (Furosemide*) 40 Mg Tablet, 40 MG PO DAILY, TAB 07/10/17 Aspirin (Low Dose Aspirin) 81 Mg Tablet.dr, 81 MG PO DAILY 03/02/15 Medications Current Medications Nitroglycerin (Nitroglycerin (Sl Tab) 0.4 Mg) 1 tab Q5M UP TO 3 DOSES PRN SL .CHEST PAIN Last administered on 12/07/18at 08:23; Admin Dose 1 TAB; Start 12/07/18 at 08:00 Dextrose (D50w Syringe) ONCE PRN IV DECREASED GLUCOSE Last administered on 12/07/18at 09:53; Admin Dose 100 ML; Start 12/07/18 at 09:00 Sodium Chloride 1,000 ml @ 0 mls/hr Q0M PRN IV TO KEEP SBP ABOVE 90; Start 12/07/18 at 10:30 Hydralazine HCl (Apresoline) 10 mg Q6H PRN PO SBP above 160; Start 12/07/18 at 12:00 Oxycodone/ Acetaminophen (Percocet (5/ 325)) 1 tab Q6 PRN PO MODERATE PAIN LEVEL 4-6 Last administered on 12/08/18at 15:34; Admin Dose 1 TAB; Start 12/07/18 at 13:00 Zolpidem Tartrate (Ambien) 10 mg QHS PRN PO INSOMNIA; Start 12/07/18 at 13:00 IV Flush (NS 3 ml) 3 ml PER PROTOCOL IV ; Start 12/07/18 at 13:00 Lorazepam (Ativan) 0.5 mg Q8H PRN PO .ANXIETY; Start 12/07/18 at 13:00 Ondansetron HCl (Zofran Inj) 4 mg Q6H PRN IV NAUSEA/VOMITING; Start 12/07/18 at 13:00 Acetaminophen (Tylenol Tab) 650 mg Q6H PRN PO .PAIN 1-3 OR TEMP Last administe red on 12/12/18at 03:00; Admin Dose 650 MG; Start 12/07/18 at 13:00 Diagnostic Test (Pha) (Accu-Chek) 1 ea 02 XX Last administered on 12/12/18at 02:42; Admin Dose 1 EA; Start 12/08/18 at 02:00 Insulin Aspart (Novolog Insulin Pen) NOVOLOG *MODERATE* ALGORITHM WITH MEALS BEDTIME SC Last administered on 12/11/18at 21:11; Admin Dose 1 UNIT; Start 12/07/18 at 18:00 Miscellaneous Information 1 ea NOTE XX ; Start 12/07/18 at 13:30 Glucose (Glutose) 15 gm Q15M PRN PO DECREASED GLUCOSE; Start 12/07/18 at 13:30 Glucose (Glutose) 22.5 gm Q15M PRN PO DECREASED GLUCOSE; Start 12/07/18 at 13:30 Dextrose (D50w Syringe) 25 ml Q15M PRN IV DECREASED GLUCOSE; Start 12/07/18 at 13:30 Dextrose (D50w Syringe) 50 ml Q15M PRN IV DECREASED GLUCOSE; Start 12/07/18 at 13:30 Glucagon (Glucagen) 1 mg Q15M PRN IM DECREASED GLUCOSE; Start 12/07/18 at 13:30 Glucose (Glutose) 15 gm Q15M PRN BUCCAL DECREASED GLUCOSE; Start 12/07/18 at 13:30 Amlodipine Besylate (Norvasc) 5 mg DAILY PO Last administered on 12/11/18at 08:32; Admin Dose 5 MG; Start 12/07/18 at 18:00 Aspirin (Halfprin) 81 mg DAILY PO Last administered on 12/11/18at 08:32; Admin Dose 81 MG; Start 12/08/18 at 18:00 Calcium Acetate (Phoslo) 667 mg WITH MEALS PO Last administered on 12/12/18 07:45; Admin Dose 667 MG; Start 12/07/18 at 18:00 Carvedilol (Coreg) 25 mg BID PO Last administered on 12/11/18 21:32; Admin Dose 25 MG; Start 12/07/18 at 21:00 Escitalopram Oxalate (Lexapro) 10 mg DAILY PO Last administered on 12/10/18 08:22; Admin Dose 10 MG; Start 12/07/18 at 18:00 Linagliptin (Tradjenta) 5 mg DAILY PO Last administered on 12/11/18 08:33; Admin Dose 5 MG; Start 12/07/18 at 18:00 Sertraline HCl (Zoloft) 50 mg DAILY PO Last administered on 12/10/18 08:22; Admin Dose 50 MG; Start 12/07/18 at 18:00 Pantoprazole (Protonix Tab) 40 mg DAILY@06 PO Last administered on 12/12/18 05:10; Admin Dose 40 MG; Start 12/07/18 at 18:00 Heparin Sodium (Porcine) (Heparin (5000 Units/1ml)) 5,000 unit Q12 SC Last administered on 12/11/18 21:37; Admin Dose 5,000 UNIT; Start 12/07/18 at 18:00 Diphenhydramine HCl (Benadryl) 25 mg Q6H PRN IV itching Last administered on 12/08/18 02:28; Admin Dose 25 MG; Start 12/07/18 at 15:00 Naloxone HCl (Narcan) 0.2 mg Q2M PRN IV DECREASED REPIRATORY RATE Last administered on 12/08/18 21:07; Admin Dose 0.2 MG; Start 12/08/18 at 21:30 Albumin Human 100 ml @ 100 mls/hr WITH DIALYSIS PRN IV SBP <90 DURING DIALYSIS; Start 12/09/18 at 10:00 Piperacillin Sod/ Tazobactam Sod 50 ml @ 25 mls/hr Q12 IVPB Last administered on 12/11/18 21:32; Admin Dose 25 MLS/HR; Start 12/09/18 at 13:45 Atorvastatin Calcium (Lipitor) 5 mg HS PO Last administered on 2/26/19at 21:32; Admin Dose 5 MG; Start 12/11/18 at 21:00 Vancomycin HCl (Vanco Iv Per Pharmacy) VANCOMYCIN PER PHARMACY PER PROTOCOL XX ; Start 12/11/18 at 13:00 Assessment/Plan Hospital Course (Demo Recall) 1. Possible chest pain : it has resolved with negative troponin 2. Frequent PVCs and bigeminy currently back in sinus rhythm 3. History of coronary artery disease status coronary bypass graft 4. History of severe cardiomyopathy versus VT status post ICD placement: Patient reports that she has had ICD done in [place]. We do not have any information on it at this point. 5. Renal failure on dialysis 6. Hypertension 7. Diabetes 8. Dyslipidemia 9. Severe hyperkalemia: Secondary to noncompliance with hemodialysis Recommendations: Hemodialysis to be managed as per renal team. Continue with Coreg Patient already has ICD in place. Patient to bring the defibrillator card/information so I can have it interrogated Aspirin to be continued Diabetic management as per internal medicine Electrolyte to be corrected as needed We will start low-dose statin as well Thank you for his referral. We will continue to follow along with you BISI MARTINS MD [facility] BSII MARTINS MD Dec 12, 2018 09:22
[2018-12-12] MEDS: SERTRALINE 50 MG TAB PO SCH (09:29)
[2018-12-12] MEDS: ESCITALOPRAM 10 MG TAB PO SCH (09:29)
[2018-12-12] MEDS: ASPIRIN (EC) 81 MG TAB PO SCH (09:29)
[2018-12-12] MEDS: LINAGLIPTIN 5 MG TABLET PO SCH (09:30)
[2018-12-12] MEDS: AMLODIPINE 5 MG TAB PO SCH (09:30)
[2018-12-12] MEDS: HEPARIN 5,000 UNIT/1 ML VIAL SC SCH ×2 (09:40→22:16)
[2018-12-12] MEDS: PIPER-TAZO 2.25 GM (PMX) 50 ML IVPB SCH ×2 (10:32→22:03)
--- NOTE | 2018-12-12 12:22 | CONS ---
Assessment/Plan Assessment/Plan Assessment/Plan (Daily) hx ESRD with Severe hyperkalemia likely secondary to noncompliance better 2. Severe metabolic acidosis likely secondary to missing dialysis session/diarrhea.better 3. htn 4. History of fall. 5. Diarrhea.better 6. History of back pain with a history of T11 compression fracture. 7. Diabetes. 8. Anemia. 9. History of coronary artery disease. 10 Pul edema 11 BIGEMY 12 CM s/p AICD plan - HD today - iv abx per renal team -Renal diet low K diet -Renally dose all meds Consultation Date/Type/Reason Admit Date/Time Dec 07, 2018 at 09:12 Initial Consult Date Requesting Provider: AIDA MORILLO MD Date/Time of Note DATE: 12/12/18 TIME: 12:20 24 HR Interval Summary Free Text/Dictation sputum Culture positive. She is on antibiotics. HD today and agreeable Exam/Review of Systems Exam Vitals Vital Signs Date Temp Pulse Resp B/P (MAP) Pulse Ox O2 O2 Flow FiO2 Time Delivery Rate 12/12/18 2.0 11:18 12/12/18 98.4 70 18 132/70 97 11:07 (90) 12/12/18 Nasal 08:07 Cannula Intake and Output 12/11/18 12/11/18 12/12/18 1515:00 23:00 07:00 IntakeIntake Total 250 ml 650 ml 120 ml BalanceBalance 250 ml 650 ml 120 ml Exam GENERAL: The patient is in no acute distress, pale. CARDIOVASCULAR: S1, S2. LUNGS: Faint cough, faint rhonchi bilaterally. ABDOMEN: Soft, nontender, not distended. EXTREMITIES: No clubbing, cyanosis, or edema. Results Result Diagram: 12/12/18 0524 12/12/18 0822 Results 24hrs Laboratory Tests Test 12/11/18 17:18 12/11/18 21:08 12/12/18 02:42 12/12/18 05:24 Bedside Glucose 140 187 105 White Blood Count 8.1 Red Blood Count 4.24 Hemoglobin 11.8 L Hematocrit 37.2 Mean Corpuscular 87.7 Volume Mean Corpuscular 27.8 L Hemoglobin Mean Corpuscular 31.7 L Hemoglobin Concent Red Cell 14.9 H Distribution Width Platelet Count 154 Mean Platelet Volume 10.5 H Immature 0.900 H Granulocytes % Neutrophils % 60.7 Lymphocytes % 17.7 Monocytes % 14.0 H Eosinophils % 5.8 Basophils % 0.9 Nucleated Red Blood 0.0 Cells % Immature 0.070 H Granulocytes # Neutrophils # 5.0 Lymphocytes # 1.4 Monocytes # 1.1 H Eosinophils # 0.5 Basophils # 0.1 Nucleated Red Blood 0.0 Cells # Sodium Level 134 L Potassium Level 4.2 Chloride Level 94 L Carbon Dioxide Level 25 Anion Gap 15 H Blood Urea Nitrogen 33 H Creatinine 7.26 H Est Glomerular Filtrat Rate mL/min Glucose Level 109 Calcium Level 8.2 L Phosphorus Level 4.0 Magnesium Level 1.8 Test 12/12/18 07:44 12/12/18 08:22 12/12/18 11:48 Bedside Glucose 105 220 Sodium Level 134 L Potassium Level 4.7 Chloride Level 95 L Carbon Dioxide Level 24 Anion Gap 15 H Blood Urea Nitrogen 33 H Creatinine 7.33 H Est Glomerular Filtrat Rate mL/min Glucose Level 118 Calcium Level 8.5 Medications Medication Current Medications Nitroglycerin (Nitroglycerin (Sl Tab) 0.4 Mg) 1 tab Q5M UP TO 3 DOSES PRN SL .CHEST PAIN Last administered on 12/07/18at 08:23; Admin Dose 1 TAB; Start 12/07/18 at 08:00 Dextrose (D50w Syringe) ONCE PRN IV DECREASED GLUCOSE Last administered on 12/07/18at 09:53; Admin Dose 100 ML; Start 12/07/18 at 09:00 Sodium Chloride 1,000 ml @ 0 mls/hr Q0M PRN IV TO KEEP SBP ABOVE 90; Start 12/07/18 at 10:30 Hydralazine HCl (Apresoline) 10 mg Q6H PRN PO SBP above 160; Start 12/07/18 at 12:00 Oxycodone/ Acetaminophen (Percocet (5/ 325)) 1 tab Q6 PRN PO MODERATE PAIN LEVEL 4-6 Last administered on 12/08/18at 15:34; Admin Dose 1 TAB; Start 12/07/18 at 13:00 Zolpidem Tartrate (Ambien) 10 mg QHS PRN PO INSOMNIA; Start 12/07/18 at 13:00 IV Flush (NS 3 ml) 3 ml PER PROTOCOL IV ; Start 12/07/18 at 13:00 Lorazepam (Ativan) 0.5 mg Q8H PRN PO .ANXIETY; Start 12/07/18 at 13:00 Ondansetron HCl (Zofran Inj) 4 mg Q6H PRN IV NAUSEA/VOMITING; Start 12/07/18 at 13:00 Acetaminophen (Tylenol Tab) 650 mg Q6H PRN PO .PAIN 1-3 OR TEMP Last administered on 12/12/18at 03:00; Admin Dose 650 MG; Start 12/07/18 at 13:00 Diagnostic Test (Pha) (Accu-Chek) 1 ea 02 XX Last administered on 12/12/18at 02:42; Admin Dose 1 EA; Start 12/08/18 at 02:00 Insulin Aspart (Novolog Insulin Pen) NOVOLOG *MODERATE* ALGORITHM WITH MEALS BEDTIME SC Last administered on 12/11/18at 21:11; Admin Dose 1 UNIT; Start 12/07/18 at 18:00 Miscellaneous Information 1 ea NOTE XX ; Start 12/07/18 at 13:30 Glucose (Glutose) 15 gm Q15M PRN PO DECREASED GLUCOSE; Start 12/07/18 at 13:30 Glucose (Glutose) 22.5 gm Q15M PRN PO DECREASED GLUCOSE; Start 12/07/18 at 13:30 Dextrose (D50w Syringe) 25 ml Q15M PRN IV DECREASED GLUCOSE; Start 12/07/18 at 13:30 Dextrose (D50w Syringe) 50 ml Q15M PRN IV DECREASED GLUCOSE; Start 12/07/18 at 13:30 Glucagon (Glucagen) 1 mg Q15M PRN IM DECREASED GLUCOSE; Start 12/07/18 at 13:30 Glucose (Glutose) 15 gm Q15M PRN BUCCAL DECREASED GLUCOSE; Start 12/07/18 at 13:30 Amlodipine Besylate (Norvasc) 5 mg DAILY PO Last administered on 12/12/18at 09:30; Admin Dose 5 MG; Start 12/07/18 at 18:00 Aspirin (Halfprin) 81 mg DAILY PO Last administered on 12/12/18at 09:29; Admin Dose 81 MG; Start 12/08/18 at 18:00 Calcium Acetate (Phoslo) 667 mg WITH MEALS PO Last administered on 12/12/18at 07:45; Admin Dose 667 MG; Start 12/07/18 at 18:00 Carvedilol (Coreg) 25 mg BID PO Last administered on 12/11/18 21:32; Admin Dose 25 MG; Start 12/07/18 at 21:00 Escitalopram Oxalate (Lexapro) 10 mg DAILY PO Last administered on 12/12/18 09:29; Admin Dose 10 MG; Start 12/07/18 at 18:00 Linagliptin (Tradjenta) 5 mg DAILY PO Last administered on 12/12/18 09:30; Admin Dose 5 MG; Start 12/07/18 at 18:00 Sertraline HCl (Zoloft) 50 mg DAILY PO Last administered on 12/12/18 09:29; Admin Dose 50 MG; Start 12/07/18 at 18:00 Pantoprazole (Protonix Tab) 40 mg DAILY@06 PO Last administered on 12/12/18 05:10; Admin Dose 40 MG; Start 12/07/18 at 18:00 Heparin Sodium (Porcine) (Heparin (5000 Units/1ml)) 5,000 unit Q12 SC Last a dministered on 12/12/18 09:40; Admin Dose 5,000 UNIT; Start 12/07/18 at 18:00 Diphenhydramine HCl (Benadryl) 25 mg Q6H PRN IV itching Last administered on 12/08/18 02:28; Admin Dose 25 MG; Start 12/07/18 at 15:00 Naloxone HCl (Narcan) 0.2 mg Q2M PRN IV DECREASED REPIRATORY RATE Last administered on 12/08/18 21:07; Admin Dose 0.2 MG; Start 12/08/18 at 21:30 Albumin Human 100 ml @ 100 mls/hr WITH DIALYSIS PRN IV SBP <90 DURING DIALYSIS; Start 12/09/18 at 10:00 Piperacillin Sod/ Tazobactam Sod 50 ml @ 25 mls/hr Q12 IVPB Last administered on 12/12/18 10:32; Admin Dose 25 MLS/HR; Start 12/09/18 at 13:45 Atorvastatin Calcium (Lipitor) 5 mg HS PO Last administered on 12/11/18 21:32; Admin Dose 5 MG; Start 12/11/18 at 21:00 Vancomycin HCl (Vanco Iv Per Pharmacy) VANCOMYCIN PER PHARMACY PER PROTOCOL XX ; Start 12/11/18 at 13:00 JOSSE THOMAS MD Dec 12, 2018 12:22
[2018-12-12] MEDS: ATORVASTATIN 10 MG TAB PO SCH (22:03)
[2018-12-13] VITALS (10 sets, daily range): BP systolic 112–152; BP diastolic 59–70; PULSE 55–62; RESP 18–20
--- NOTE | 2018-12-13 00:56 | PN ---
DATE: 12/12/2018 SUBJECTIVE: The patient is seen, doing better. She was just dialyzed, feels slightly dizzy, but ove rall clinically, looks much better. PHYSICAL EXAMINATION: VITAL SIGNS: Temperature 98.1, pulse 55, respiration is 19, blood pressure 108/52, saturation 97%. GENERAL: No acute distress. The patient is pale. HEENT: No JVD. CARDIOVASCULAR: S1, S2. Regular rate. LUNGS: Clear. ABDOMEN: Slightly distended. EXTREMITIES: No clubbing, cyanosis, or edema. LABORATORY DATA: White count 8.1, hemoglobin 11.8, hematocrit 37, platelet count 154 with normal dif ferential. Chemistry: Sodium 134, potassium 4.7, chloride 95, bicarbonate 24, BUN is 33, creatinine 7.33, glucose of 118. Sputum culture did show gram-negative rods. We will follow up with results. MEDICATIONS: 1. Atorvastatin. 2. Vancomycin. 3. Zosyn. 4. Narcan. 5. Aspirin. 6. Accu-Cheks. 7. Coreg. 8. Norvasc. 9. PhosLo. 10. Lexapro. 11. Trajenta. 12. Zoloft. 13. Protonix. 14. Heparin. 15. Benadryl. 16. Hypoglycemia protocol. 17. Percocet 18. Ambien. 19. Ativan. 20. Zofran. 21. Tylenol. 22. Hydralazine. 23. Nitroglycerin. ASSESSMENT AND PLAN: This is a 78-year-old overweight female with history of end-stage tomy l disease, coronary artery disease status post CABG, diabetes mellitus, hypertension, who presented w ith chest pain and shortness of breath, was found to have severe hyperkalemia, fluid overload, likely pneumonia as well. 1. Pneumonia. Continue antibiotic with vancomycin and Zosyn. Follow up above cultures. 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 Clinically, much better. Hopefully, we can transition to oral antibi otics. 2. Cardiovascular. Fluid removal per dialysis, status post dialysis today. Vitals are stable. 3. Abdominal pain. No significant ascites on ultrasound. Empirically on antibiotics for spontaneou s bacterial peritonitis. 4. Gastrointestinal. Continue to monitor hemoglobin and hematocrit. No need for transfusion. 5. Back pain. Opiates p.r.n. 6. Diarrhea, resolved. Stool studies are negative. 7. Diabetes mellitus. Glucose levels are controlled in the low 100s. 8. End-stage renal disease. Dialysis was done today. 9. Follow up sputum culture results and plan for discharge planning soon. Clinically, much better. Chest x-ray is improving as well. We will follow. Dictated By: AIDA PARRY/KIM Conf#: [id number] DID#: [id number]
[2018-12-13] MEDS: ACCU-CHEK XX SCH (02:00)
[2018-12-13] MEDS: PANTOPRAZOLE (EC) 40 MG TAB PO SCH (05:37)
[2018-12-13] MEDS: INSULIN ASPART [NOVOLOG] 3 ML PEN SC SCH ×3 (07:27→17:31)
[2018-12-13] MEDS: CALCIUM ACETATE 667 MG CAP PO SCH ×3 (07:47→17:31)
--- NOTE | 2018-12-13 08:12 | CONS ---
Consult Date/Type/Reason Admit Date/Time Dec 07, 2018 at 09:12 Initial Consult Date 12/10/18 Type of Consultation: cv Requesting Provider: AIDA MORILLO MD Date/Time of Note DATE: 12/13/18 TIME: 08:11 Subjective Cardiology follow-up progress note Subjective: Discussed with the staff. Telemetry was reviewed. pt remains in NSR /sinus bradycardia Patient with no chest pain or pressure now. No palpitation now. Patient feels better today Objective: General: no acute distress HEENT: NC/AT. pupils are equal. round. NECK: NO JVD. no stridor. CV: RRR. systolic murmur; no gallop or rubs. PULM: no wheezing or rhonchi. GI: SOFT, NT, ND, no rebound or guarding Extremity: trace B/L LE edema. no clubbing. neuro: awake and alert, OX3. Psych: calm and pleasant rectal: deferred Chest: Right-sided single-chamber ICD in place EKG showed normal sinus rhythm with first-degree AV block. Echocardiogram was personally reviewed which shows: Normal left ventricular systolic function. Ejection fraction is visually estimated at 65 %. Tissue Doppler/Mitral Doppler indices are consistent with pseudonormalization with mildly elevated left atrial pressure (Stage II diastolic dysfunction). These segments of the LV are hypokinetic anteroseptum segment. Mitral valve leaflets appear mildly thickened. Mild mitral annular calcification. Mild mitral valve regurgitation. Aortic valve not well visualized. Moderate aortic stenosis. Aortic valve Max velocity 2.81 m/sec. Max PG 32.00 mmHg. Mean PG 18.00 mmHg. Aortic cusps appear mildly calcified. Trace aortic valve regurgitation. Normal appearance of the tricuspid valve. Right ventricular systolic pressure is consistent with mild pulmonary hypertension. Estimated peak PA systolic pressure 40 mmHg. There is mild tricuspid regurgitation. Dilated IVC with respiratory collapse consistent with elevated right atrial pressure. Objective Vitals Vital Signs Date Temp Pulse Resp B/P (MAP) Pulse Ox O2 O2 Flow FiO2 Time Delivery Rate 12/13/18 Nasal 2.0 07:51 Cannula 12/13/18 98.4 55 20 152/70 98 07:39 (97) 12/13/18 28 00:20 Intake and Output 12/12/18 12/12/18 12/13/18 1515:00 23:00 07:00 IntakeIntake Total 500 ml 250 ml OutputOutput Total 200 ml 1900 ml BalanceBalance -200 ml -1400 ml 250 ml Results/Medications Result Diagram: 12/12/18 0524 12/12/18 0822 Results 24 hrs Laboratory Tests Test 12/12/18 08:22 12/12/18 11:48 12/12/18 17:33 12/12/18 22:05 Sodium Level 134 L Potassium Level 4.7 Chloride Level 95 L Carbon Dioxide Level 24 Anion Gap 15 H Blood Urea Nitrogen 33 H Creatinine 7.33 H Est Glomerular Filtrat Rate mL/min Glucose Level 118 Calcium Level 8.5 Bedside Glucose 220 141 150 Test 12/13/18 04:56 12/13/18 07:25 Random Vancomycin 18.1 Level Bedside Glucose 92 Home Meds Active Scripts Morphine Sulfate* (Oramorph SR*) 15 Mg Tablet.sa, 15 MG PO Q12, #30 TAB.SA Prov:AIDA MORILLO MD 07/11/17 Linagliptin (TRADJENTA) 5 Mg Tablet, 5 MG PO DAILY for 30 Days, TAB Prov:ADIA MORILLO MD 01/02/17 Zolpidem Tartrate* (Ambien*) 10 Mg Tablet, 10 MG PO QHS PRN for INSOMNIA for 30 Days, TAB Prov:AIDA MORILLO MD 01/02/17 Calcium Acetate* (Calcium Acetate*) 667 Mg Capsule, 667 MG PO TID for 30 Days, CAP Prov:AIDA MORILLO MD 01/02/17 Reported Medications Escitalopram Oxalate* (Escitalopram Oxalate*) 10 Mg Tablet, 10 MG PO DAILY, #30 TAB 11/28/17 [omegaXL] No Conflict Check, 2 CAP ORAL DAILY for supplement for 30 Days 11/28/17 Multivitamin with Minerals (Multivitamins with Minerals) 1 Each Tablet, 1 EACH PO, TAB 11/28/17 Oxycodone HCl/Acetaminophen (Oxycodone-Acetaminophen 5-325) 1 Each Tablet, 1 EACH PO, TAB 11/28/17 Hydralazine Hcl* (Hydralazine Hcl*) 50 Mg Tab, 50 MG PO QID, #120 TAB 11/28/17 Sertraline Hcl* (Sertraline Hcl*) 50 Mg Tablet, 50 MG PO DAILY, #30 TAB 07/10/17 Carvedilol* (Carvedilol*) 25 Mg Tablet, 25 MG PO BID, #60 TAB 07/10/17 Amlodipine Besylate* (Norvasc*) 5 Mg Tablet, 5 MG PO DAILY, TAB 07/10/17 Furosemide* (Furosemide*) 40 Mg Tablet, 40 MG PO DAILY, TAB 07/10/17 Aspirin (Low Dose Aspirin) 81 Mg Tablet.dr, 81 MG PO DAILY 03/02/15 Medications Current Medications Nitroglycerin (Nitroglycerin (Sl Tab) 0.4 Mg) 1 tab Q5M UP TO 3 DOSES PRN SL .CHEST PAIN Last administered on 12/07/18at 08:23; Admin Dose 1 TAB; Start 12/07/18 at 08:00 Dextrose (D50w Syringe) ONCE PRN IV DECREASED GLUCOSE Last administered on 12/07/18at 09:53; Admin Dose 100 ML; Start 12/07/18 at 09:00 Sodium Chloride 1,000 ml @ 0 mls/hr Q0M PRN IV TO KEEP SBP ABOVE 90; Start at 10:30 Hydralazine HCl (Apresoline) 10 mg Q6H PRN PO SBP above 160; Start 12/07/18 at 12:00 Oxycodone/ Acetaminophen (Percocet (5/ 325)) 1 tab Q6 PRN PO MODERATE PAIN LEVEL 4-6 Last administered on 12/08/18at 15:34; Admin Dose 1 TAB; Start 12/07/18 at 13:00 Zolpidem Tartrate (Ambien) 10 mg QHS PRN PO INSOMNIA; Start 12/07/18 at 13:00 IV Flush (NS 3 ml) 3 ml PER PROTOCOL IV ; Start 12/07/18 at 13:00 Lorazepam (Ativan) 0.5 mg Q8H PRN PO .ANXIETY; Start 12/07/18 at 13:00 Ondansetron HCl (Zofran Inj) 4 mg Q6H PRN IV NAUSEA/VOMITING; Start 12/07/18 at 13:00 Acetaminophen (Tylenol Tab) 650 mg Q6H PRN PO .PAIN 1-3 OR TEMP Last administered on 12/12/18at 03:00; Admin Dose 650 MG; Start 12/07/18 at 13:00 Diagnostic Test (Pha) (Accu-Chek) 1 XX Last administered on 12/12/18at 02:42; Admin Dose 1 EA; Start 12/08/18 at 02:00 Insulin Aspart (Novolog Insulin Pen) NOVOLOG *MODERATE* ALGORITHM WITH MEALS BEDTIME SC Last administered on 12/12/18 17:38; Admin Dose 2 UNIT; Start 12/07 at 18:00 Miscellaneous Information 1 ea NOTE XX ; Start 12/07/18 at 13:30 Glucose (Glutose) 15 gm Q15M PRN PO DECREASED GLUCOSE; Start 12/07/18 at 13:30 Glucose (Glutose) 22.5 gm Q15M PRN PO DECREASED GLUCOSE; Start 12/07/18 at 13:30 Dextrose (D50w Syringe) 25 ml Q15M PRN IV DECREASED GLUCOSE; Start 12/07/18 at 13:30 Dextrose (D50w Syringe) 50 ml Q15M PRN IV DECREASED GLUCOSE; Start 12/07/18 at 13:30 Glucagon (Glucagen) 1 mg Q15M PRN IM DECREASED GLUCOSE; Start 12/07/18 at 13:30 Glucose (Glutose) 15 gm Q15M PRN BUCCAL DECREASED GLUCOSE; Start 12/07/18 at 13:30 Amlodipine Besylate (Norvasc) 5 mg DAILY PO Last administered on 12/12/18 09:30; Admin Dose 5 MG; Start 12/07/18 at 18:00 Aspirin (Halfprin) 81 mg DAILY PO Last administered on 12/12/18 09:29; Admin Dose 81 MG; Start 12/08/18 at 18:00 Calcium Acetate (Phoslo) 667 mg WITH MEALS PO Last administered on 12/13/18 07:47; Admin Dose 667 MG; Start 12/07/18 at 18:00 Carvedilol (Coreg) 25 mg BID PO Last administered on 12/12/18 22:04; Admin Dose 25 MG; Start 12/07/18 at 21:00 Escitalopram Oxalate (Lexapro) 10 mg DAILY PO Last administered on 12/12/18 09:29; Admin Dose 10 MG; Start 12/07/18 at 18:00 Linagliptin (Tradjenta) 5 mg DAILY PO Last administered on 12/12/18 09:30; Admin Dose 5 MG; Start 12/07/18 at 18:00 Sertraline HCl (Zoloft) 50 mg DAILY PO Last administered on 12/12/18 09:29; Admin Dose 50 MG; Start 12/07/18 at 18:00 Pantoprazole (Protonix Tab) 40 mg DAILY@06 PO Last administered on 12/13/18 05:37; Admin Dose 40 MG; Start 12/07/18 at 18:00 Heparin Sodium (Porcine) (Heparin (5000 Units/1ml)) 5,000 unit Q12 SC Last administered on 12/12/18 22:16; Admin Dose 5,000 UNIT; Start 12/07/18 at 18:00 Diphenhydramine HCl (Benadryl) 25 mg Q6H PRN IV itching Last administered on 12/08/18 02:28; Admin Dose 25 MG; Start 12/07/18 at 15:00 Naloxone HCl (Narcan) 0.2 mg Q2M PRN IV DECREASED REPIRATORY RATE Last administered on 12/08/18 21:07; Admin Dose 0.2 MG; Start 12/08/18 at 21:30 Albumin Human 100 ml @ 100 mls/hr WITH DIALYSIS PRN IV SBP <90 DURING DIALYSIS; Start 12/09/18 at 10:00 Piperacillin Sod/ Tazobactam Sod 50 ml @ 25 mls/hr Q12 IVPB Last administered on 12/12/18 22:03; Admin Dose 25 MLS/HR; Start 12/09/18 at 13:45 Atorvastatin Calcium (Lipitor) 5 mg HS PO Last administered on 12/12/18 22:03; Admin Dose 5 MG; Start 12/11/18 at 21:00 Vancomycin HCl (Vanco Iv Per Pharmacy) VANCOMYCIN PER PHARMACY PER PROTOCOL XX ; Start 12/11/18 at 13:00 Assessment/Plan Hospital Course (Demo Recall) 1. ? chest pain : it has resolved with negative troponin 2. Frequent PVCs and bigeminy currently back in sinus rhythm 3. History of coronary artery disease status coronary bypass graft 4. History of severe cardiomyopathy versus VT status post ICD placement: Patient reports that she has had ICD done in [place]. We do not have any information on it at this point. 5. Renal failure on dialysis 6. Hypertension 7. Diabetes 8. Dyslipidemia 9. Severe hyperkalemia: Secondary to noncompliance with hemodialysis Recommendations: Hemodialysis to be managed as per renal team. Continue with Coreg Patient already has ICD in place. Patient to bring the defibrillator card/information so I can have it interrogated Aspirin to be continued Diabetic management as per internal medicine Electrolyte to be corrected as needed We will start low-dose statin as well We will set up for outpatient cardiology follow-up Thank you for his referral. We will continue to follow along with you BISI MARTINS MD [facility] BISI MARTINS MD Dec 13, 2018 08:12
[2018-12-13] MEDS: AMLODIPINE 5 MG TAB PO SCH (08:21)
[2018-12-13] MEDS: LINAGLIPTIN 5 MG TABLET PO SCH (08:21)
[2018-12-13] MEDS: SERTRALINE 50 MG TAB PO SCH (08:21)
[2018-12-13] MEDS: ESCITALOPRAM 10 MG TAB PO SCH (08:21)
[2018-12-13] MEDS: ASPIRIN (EC) 81 MG TAB PO SCH (08:21)
[2018-12-13] MEDS: PIPER-TAZO 2.25 GM (PMX) 50 ML IVPB SCH (08:26)
[2018-12-13] MEDS: HEPARIN 5,000 UNIT/1 ML VIAL SC SCH (08:33)
[2018-12-13] MEDS ORDERED: VANCOMYCIN 1 GM 250 ML IVPB SCH (15:00)
--- NOTE | 2018-12-13 15:07 | PDOCDIS ---
Discharge Instructions CONDITION [id number] Patient Condition: [id number] Stable HOME CARE INSTRUCTIONS: [id number] Diet Instructions: [id number] renal ACTIVITY: [id number] Activity Restrictions: [id number] Slowly Increase Activity AIDA MORILLO MD Dec 13, 2018 15:07
[2018-12-13] MEDS ORDERED: LEVO250T9 PO (15:13)
[2018-12-13] MEDS ORDERED: ATOR10TA65 PO (15:13)
[2018-12-13] MEDS ORDERED: DOXY100C42 PO (15:13)
--- NOTE | 2018-12-13 16:11 | CONS ---
Consultation Date/Type/Reason Admit Date/Time Dec 07, 2018 at 09:12 Initial Consult Date Requesting Provider: AIDA MORILLO MD Date/Time of Note DATE: 12/13/18 TIME: 16:11 Exam/Review of Systems Exam Vitals Vital Signs Date Temp Pulse Resp B/P (MAP) Pulse Ox O2 O2 Flow FiO2 Time Delivery Rate 12/13/18 96.8 58 20 150/68 96 Room Air 15:54 (95) 12/13/18 2.0 07:51 12/13/18 00:20 Intake and Output 12/12/18 12/12/18 12/13/18 1515:00 23:00 07:00 IntakeIntake Total 500 ml 250 ml OutputOutput Total 200 ml 1900 ml BalanceBalance -200 ml -1400 ml 250 ml Results Result Diagram: 12/12/18 0524 12/12/18 0822 Results 24hrs Laboratory Tests Test 12/12/18 17:33 12/12/18 22:05 12/13/18 04:56 12/13/18 07:25 Bedside Glucose 141 150 92 Random Vancomycin 18.1 Level Test 12/13/18 12:00 Bedside Glucose 175 Medications Medication Current Medications Nitroglycerin (Nitroglycerin (Sl Tab) 0.4 Mg) 1 tab Q5M UP TO 3 DOSES PRN SL .CHEST PAIN Last administered on 12/07/18at 08:23; Admin Dose 1 TAB; Start 12/07/18 at 08:00 Dextrose (D50w Syringe) ONCE PRN IV DECREASED GLUCOSE Last administered on 12/07/18at 09:53; Admin Dose 100 ML; Start 12/07/18 at 09:00 Sodium Chloride 1,000 ml @ 0 mls/hr Q0M PRN IV TO KEEP SBP ABOVE 90; Start 12/07/18 at 10:30 Hydralazine HCl (Apresoline) 10 mg Q6H PRN PO SBP above 160; Start 12/07/18 at 12:00 Oxycodone/ Acetaminophen (Percocet (5/ 325)) 1 tab Q6 PRN PO MODERATE PAIN LEVEL 4-6 Last administered on 12/08/18at 15:34; Admin Dose 1 TAB; Start 12/07/18 at 13:00 Zolpidem Tartrate (Ambien) 10 mg QHS PRN PO INSOMNIA; Start 12/07/18 at 13:00 IV Flush (NS 3 ml) 3 ml PER PROTOCOL IV ; Start 12/07/18 at 13:00 Lorazepam (Ativan) 0.5 mg Q8H PRN PO .ANXIETY; Start 12/07/18 at 13:00 Ondansetron HCl (Zofran Inj) 4 mg Q6H PRN IV NAUSEA/VOMITING; Start 12/07/18 at 13:00 Acetaminophen (Tylenol Tab) 650 mg Q6H PRN PO .PAIN 1-3 OR TEMP Last administered on 12/12/18at 03:00; Admin Dose 650 MG; Start 12/07/18 at 13:00 Diagnostic Test (Pha) (Accu-Chek) 1 ea 02 XX Last administered on 12/12/18at 02:42; Admin Dose 1 EA; Start 12/08/18 at 02:00 Insulin Aspart (Novolog Insulin Pen) NOVOLOG *MODERATE* ALGORITHM WITH MEALS BEDTIME SC Last administered on 12/13/18at 12:20; Admin Dose 2 UNIT; Start 12/07/18 at 18:00 Miscellaneous Information 1 ea NOTE XX ; Start 12/07/18 at 13:30 Glucose (Glutose) 15 gm Q15M PRN PO DECREASED GLUCOSE; Start 12/07/18 at 13:30 Glucose (Glutose) 22.5 gm Q15M PRN PO DECREASED GLUCOSE; Start 12/07/18 at 13:30 Dextrose (D50w Syringe) 25 ml Q15M PRN IV DECREASED GLUCOSE; Start 12/07/18 at 13:30 Dextrose (D50w Syringe) 50 ml Q15M PRN IV DECREASED GLUCOSE; Start 12/07/18 at 13:30 Glucagon (Glucagen) 1 mg Q15M PRN IM DECREASED GLUCOSE; Start 12/07/18 at 13:30 Glucose (Glutose) 15 gm Q15M PRN BUCCAL DECREASED GLUCOSE; Start 12/07/18 at 13:30 Amlodipine Besylate (Norvasc) 5 mg DAILY PO Last administered on 12/13/18at 08:21; Admin Dose 5 MG; Start 12/07/18 at 18:00 Aspirin (Halfprin) 81 mg DAILY PO Last administered on 12/13/18at 08:21; Admin Dose 81 MG; Start 12/08/18 at 18:00 Calcium Acetate (Phoslo) 667 mg WITH MEALS PO Last administered on 12/13/18 12:01; Admin Dose 667 MG; Start 12/07/18 at 18:00 Carvedilol (Coreg) 25 mg BID PO Last administered on 12/12/18 22:04; Admin Dose 25 MG; Start 12/07/18 at 21:00 Escitalopram Oxalate (Lexapro) 10 mg DAILY PO Last administered on 12/13/18 08:21; Admin Dose 10 MG; Start 12/07/18 at 18:00 Linagliptin (Tradjenta) 5 mg DAILY PO Last administered on 12/13/18 08:21; Admin Dose 5 MG; Start 12/07/18 at 18:00 Sertraline HCl (Zoloft) 50 mg DAILY PO Last administered on 12/13/18 08:21; Admin Dose 50 MG; Start 12/07/18 at 18:00 Pantoprazole (Protonix Tab) 40 mg DAILY@06 PO Last administered on 12/13/18 05:37; Admin Dose 40 MG; Start 12/07/18 at 18:00 Heparin Sodium (Porcine) (Heparin (5000 Units/1ml)) 5,000 unit Q12 SC Last administered on 12/13/18 08:33; Admin Dose 5,000 UNIT; Start 12/07/18 at 18:00 Diphenhydramine HCl (Benadryl) 25 mg Q6H PRN IV itching Last administered on 12/08/18 02:28; Admin Dose 25 MG; Start 12/07/18 at 15:00 Naloxone HCl (Narcan) 0.2 mg Q2M PRN IV DECREASED REPIRATORY RATE Last ad ministered on 12/08/18 21:07; Admin Dose 0.2 MG; Start 12/08/18 at 21:30 Albumin Human 100 ml @ 100 mls/hr WITH DIALYSIS PRN IV SBP <90 DURING DIALYSIS; Start 12/09/18 at 10:00 Piperacillin Sod/ Tazobactam Sod 50 ml @ 25 mls/hr Q12 IVPB Last administered on 12/13/18 08:26; Admin Dose 25 MLS/HR; Start 12/09/18 at 13:45 Atorvastatin Calcium (Lipitor) 5 mg HS PO Last administered on 12/12/18 22:03; Admin Dose 5 MG; Start 12/11/18 at 21:00 Vancomycin HCl (Vanco Iv Per Pharmacy) VANCOMYCIN PER PHARMACY PER PROTOCOL XX ; Start 12/11/18 at 13:00 Vancomycin HCl 250 ml @ 125 mls/hr ONCE IVPB Last administered on 12/13/18at 14:24; Admin Dose 125 MLS/HR; Start 12/13/18 at 15:00; Stop 12/13/18 at 21:00 JOSSE THOAMS MD Dec 13, 2018 16:11
--- NOTE | 2018-12-13 18:53 | DS ---
DATE OF ADMISSION: 12/07/2018 DATE OF DISCHARGE: 12/13/2018 REASON FOR ADMISSION: Chest pain, shortness of breath, severe hyperkalemia, missed hemodialysis. HOSPITAL COURSE: The patient is a 78-year-old female, very well known to me, with history o f end-stage renal disease, receives dialysis twice a week and also noncompliant with the above twice a week dialysis sessions. She has a left upper extremity AV fistula, hypertension, cardiomyopathy, C HF, AICD placement, history of diabetes mellitus, depression, dyslipidemia, coronary artery disease, status post CABG, 4-vessel disease in 2012. The patient missed her dialysis, now presents with chest discomfort and shortness of breath. In the ER. BUN and creatinine was elevated, 86/13.3. with a po tassium of 8.3. The patient received treatment for hyperkalemia. She was dialyzed urgently and admi tted for further care. The patient underwent diagnostic imaging on admission. It showed low lung vo lumes with hazy opacities in lung which could represent subsegmental atelectasis or pulmonary edema v ersus interstitial pneumonia. Initially, I treated it as a fluid overload state, and the patient was dialyzed, but later on I decided to pursue and start antibiotics. Sputum culture was obtained and i t shows Klebsiella pneumoniae, Staphylococcus aureus. The patient has been placed on appropriate IV antibiotics during her stay with vancomycin and Zosyn. The patient has been doing much better. Ches t x-ray done 2 days ago shows overall improving vascular congestion but there is still atelectasis, s o I treated for pneumonia, and the patient has sputum culture positive. The patient is now doing bet ter. White count is normal at 8.1, hemoglobin A1c was 7.4. Ammonia level was less than 9. Glucose levels have been good, BUN and creatinine is 33/7.33. The patient was dialyzed yesterday. She can b e discharged with the following medications: 1. Levaquin 250 daily for 7 days. 2. Doxycycline 100 b.i.d. for 7 days. 3. Tradjenta 5 mg daily. 4. Amlodipine 5 mg daily. 5. Coreg 25 b.i.d. 6. Atorvastatin 5 mg at bedtime. 7. Aspirin 81 daily. 8. Lexapro 10 mg daily. 9. PhosLo 667 t.i.d. FINAL DIAGNOSES: 1. Acute respiratory failure. 2. Diastolic dysfunction, heart failure, and fluid overload state, [id number]. 3. End-stage renal disease. 4. Rule out pneumonia. 5. End-stage renal disease. 6. Severe hyperkalemia. 7. Diabetes mellitus. 8. Chronic pain. 9. Attempt at paracentesis was done, but there was not enough fluid. 10. Opioid-induced lethargy, status post Narcan. 11. Hypertension. 12. Arrhythmia. Dr. Ambriz has been following. FOLLOWUP: Follow up with PCP, Dr. Ambriz, the technical professional, and Dr. Rivas, the pig breeder. Encour age her to do her dialysis on a daily basis. Renal diet, ADA 1800, 2 gm sodium. ACTIVITY: As tolerated. The patient is stable for discharge. Vital signs are stable. Dictated By: AIDA PARRY/KIM Conf#: [id number] DID#: [id number] CC: AIDA MORILLO MD;*EndCC*
== END 2018-12-13 17:15 | disposition home or self-care (01) | DRG 640 ==
LOC: E/R 07:53 → 6WM 09:12
PROVIDERS: ADMIT Internal Medicine; ATTEND Internal Medicine
PROC: 5A1D70Z Performance of Urinary Filtration, Intermittent, Less than 6 Hours Per Day (ICD-10-PCS; principal; 2018-12-07)
DX: E87.5 Hyperkalemia (principal); N18.6 End stage renal disease; I50.33 Acute on chronic diastolic (congestive) heart failure; J18.9 Pneumonia, unspecified organism; J96.00 Acute respiratory failure, unspecified whether with hypoxia or hypercapnia; R18.8 Other ascites; J81.1 Chronic pulmonary edema; I13.2 Hypertensive heart and chronic kidney disease with heart failure and with stage 5 chronic kidney disease, or end stage renal disease; I42.9 Cardiomyopathy, unspecified; E11.22 Type 2 diabetes mellitus with diabetic chronic kidney disease; Z99.2 Dependence on renal dialysis; Z91.15 Patient's noncompliance with renal dialysis; E87.2 Acidosis; E83.51 Hypocalcemia; R00.1 Bradycardia, unspecified; Z68.29 Body mass index [BMI] 29.0-29.9, adult; Z95.1 Presence of aortocoronary bypass graft; Z87.81 Personal history of (healed) traumatic fracture; Z95.810 Presence of automatic (implantable) cardiac defibrillator; Z87.891 Personal history of nicotine dependence; F41.8 Other specified anxiety disorders; R19.7 Diarrhea, unspecified; I25.10 Atherosclerotic heart disease of native coronary artery without angina pectoris; E66.3 Overweight; R53.83 Other fatigue; T40.2X5A Adverse effect of other opioids, initial encounter; Y92.239 Unspecified place in hospital as the place of occurrence of the external cause; I49.9 Cardiac arrhythmia, unspecified; B96.1 Klebsiella pneumoniae [K. pneumoniae] as the cause of diseases classified elsewhere; A49.01 Methicillin susceptible Staphylococcus aureus infection, unspecified site
CPT/HCPCS: 36415; 71045; 74176; 76705; 80048; 80053; 80061; 80202; 82105; 82140; 82270; 82550; 82553; 82803; 82962; 83036; 83735; 84100; 84132; 84443; 84484; 85025; 85610; 87045; 87070; 87075; 87081; 87340; 90935; 93005; 93306; 93931; 94664; 96374; 96375; 97116; 97162; 97530; J1200; J1644; J1815; J2270; J2310; J2405; J2543; J3370; J7050; P9047

== ENCOUNTER 2019-04-12 16:50 | Emergency (ER) | payer MEDICARE, MEDICAID ==
[~2019-04-12] VITALS: Ht 152.4 cm; Wt 71.5 kg
[~2019-04-12 16:50] MED LIST changes: +ATOR10TA65 PO; +DOXY100C42 PO; -HYDR-3672 PO; +LEVO250T9 PO; -MORP-72 PO; -OXYC-438 PO; -SERT50TA6 PO; -ZOLP10TA PO
[2019-04-12 17:06] VITALS: Ht 152.4 cm; Wt 71.5 kg
[2019-04-12] MEDS ORDERED: IBUPROFEN 200 MG TAB PO ONE (17:30)
[2019-04-12] MEDS ORDERED: traMADol 50 MG TAB PO ONE (17:30)
[2019-04-12] MEDS ORDERED: TRAM50TA2 PO (19:40)
[2019-04-12] MEDS ORDERED: ACET500C5 PO (19:41)
--- NOTE | 2019-04-12 19:47 | ERD ---
ER Documentation Chief Complaint Chief Complaint Pt reports she felt dizzy and fell, c/o R arm pain, this happened last nigh HPI 78-year-old female brought in by daughter who states that she had a brief episode of dizziness and fell down. She landed on her buttocks as well as her right arm. Her primary complaints are pain in her area of her coccyx and right wrist pain. She has no history of head injury, neck injury, deficits. She has no history of chest pain, shortness of breath. She feels no current dizziness, deficits, additional symptoms other than the pain of the areas affected by her fall. ROS All systems reviewed and are negative except as per history of present illness. Medications Home Meds Active Scripts Acetaminophen* (Tylophen*) 500 Mg Capsule, 1 CAP PO Q6H PRN for PAIN AND OR ELEVATED TEMP, #20 CAP Prov:PIERCE SALCIDO MD 04/12/19 Tramadol HCl (Tramadol HCl) 50 Mg Tablet, 50 MG PO Q4 PRN for PAIN, #15 TAB Prov:PIERCE SALCIDO MD 04/12/19 Doxycycline Monohydrate (Doxycycline Monohydrate) 100 Mg Capsule, 100 MG PO BID for 7 Days, CAP Prov:AIDA MORILLO MD 12/13/18 Levofloxacin* (Levofloxacin*) 250 Mg Tablet, 250 MG PO DAILY for 7 Days, TAB Prov:AIDA MORILLO MD 12/13/18 Atorvastatin (Atorvastatin) 10 Mg Tablet, 5 MG PO HS for 30 Days, TAB Prov:AIDA MORILLO MD 12/13/18 Linagliptin (TRADJENTA) 5 Mg Tablet, 5 MG PO DAILY for 30 Days, TAB Prov:AIDA MORILLO MD 01/02/17 Calcium Acetate* (Calcium Acetate*) 667 Mg Capsule, 667 MG PO TID for 30 Days, CAP Prov:AIDA MORILLO MD 01/02/17 Reported Medications Escitalopram Oxalate* (Escitalopram Oxalate*) 10 Mg Tablet, 10 MG PO DAILY, #30 TAB 11/28/17 [omegaXL] No Conflict Check, 2 CAP ORAL DAILY for supplement for 30 Days 11/28/17 Multivitamin with Minerals (Multivitamins with Minerals) 1 Each Tablet, 1 EACH PO, TAB 11/28/17 Carvedilol* (Carvedilol*) 25 Mg Tablet, 25 MG PO BID, #60 TAB 07/10/17 Amlodipine Besylate* (Norvasc*) 5 Mg Tablet, 5 MG PO DAILY, TAB 07/10/17 Furosemide* (Furosemide*) 40 Mg Tablet, 40 MG PO DAILY, TAB 07/10/17 Aspirin (Low Dose Aspirin) 81 Mg Tablet.dr, 81 MG PO DAILY 03/02/15 Allergies Allergies: Coded Allergies: No Known Drug Allergies (Unverified Allergy, Unknown, 11/28/17) Uncoded Allergies: PLASTIC TAPE (Adverse Reaction, Mild, ITCHING, 07/10/17) PMhx/Soc History of Surgery: Yes (cabg,appendectomy,av shunt placement) Anesthesia Reaction: No Hx Neurological Disorder: No Hx Respiratory Disorders: No Hx Cardiac Disorders: Yes (htn,cardiomyopathy,chf,aicd,ckd) Hx Psychiatric Problems: No Hx Miscellaneous Medical Probl: Yes (CAD,HTN,DM,CABG,CHF,AICD,CKD on HD,depression,anemia) Hx Alcohol Use: No Hx Substance Use: No Hx Tobacco Use: No Smoking Status: Never smoker FmHx Family History: No diabetes, No coronary disease, No other Physical Exam Vitals Vital Signs Date Temp Pulse Resp B/P (MAP) Pulse Ox O2 O2 Flow FiO2 Time Delivery Rate 04/12/19 98.3 63 16 132/63 100 17:06 (86) Physical Exam Const: No acute distress Head: Atraumatic Eyes: Normal Conjunctiva ENT: Normal External Ears, Nose and Mouth. Neck: Full range of motion. No meningismus. Resp: Clear to auscultation bilaterally Cardio: Regular rate and rhythm, no murmurs Abd: Soft, non tender, non distended. Normal bowel sounds Skin: No petechiae or rashes Back: No midline or flank tenderness. Tenderness around the coccyx without deformities, erythema, skin changes. Ext: No cyanosis, or edema. tenderness and swelling around the right distal radius. No deficits, edema. Cap refill is less than 2 seconds. Neur: Awake and alert Psych: Normal Mood and Affect Results 24 hrs Current Medications Medications Dose Sig/Lety Start Time Status Last (Trade) Ordered Route PRN Stop Time Admin Dose Reason Admin Tramadol 50 mg ONCE ONCE 04/12/19 DC 04/12/19 HCl PO 17:30 17:38 (Ultram) 04/12/19 17:32 Ibuprofen 400 mg ONCE ONCE 04/12/19 DC 04/12/19 (Motrin) PO 17:30 17:38 04/12/19 17:32 Procedures/MDM PROCEDURE: XR right Wrist. CLINICAL INDICATION: Trauma with pain. TECHNIQUE: AP, navicular, lateral and oblique views of the right wrist were performed. 4 images COMPARISON: No prior studies are available for comparison. FINDINGS: There is a nondisplaced fracture of the ulnar styloid. There is a dorsally impacted fracture of the distal radial metaphysis, without significant displacement. There is no evidence of dislocation or subluxation. There is severe osteoarthritis at the first carpal metacarpal joint. There is prominent soft tissue swelling around the wrist. There is severe arterial calcification in the hand and wrist. IMPRESSION: 1. Dorsal impaction fracture of the distal radial metaphysis. 2. Nondisplaced fracture of the ulnar styloid. 3. Severe peripheral artery disease. 4. 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 RPTAT:AAJJ Physician Antoine Date Time Electronically viewed and signed by Ulysses Lindsay Physician on 04/12/2019 19:20 GW/ CC: PIERCE SALCIDO MD [id number] Patient placed in a right arm sling right short arm splint. Patient neurovascular intact after splint. PROCEDURE: XR Sacrum and Coccyx. CLINICAL INDICATION: Trauma with pain. TECHNIQUE: AP and lateral views of the sacrum and coccyx were performed. 3 images COMPARISON: No prior studies are available for comparison. FINDINGS: There is no visible sacral or coccygeal fracture. The bones are osteopenic. The SI joints are symmetric and unremarkable with no diastases. There is severe calcification of the visible arterial structures in the pelvis. IMPRESSION: 1. No visible fracture of the sacrum or coccyx. 2. Severe atherosclerotic disease. RPTAT:AAJJ Physician Antoine Date Time Electronically viewed and signed by Ulysses Lindsay Physician on 04/12/2019 19:18 GW/ CC: PIERCE SALCIDO MD [id number] EKG: Rate/Rhythm: Normal Sinus Rhythm. Rate equals 61 QRS, ST, T-waves: No changes consistent w/ acute ischemia Impression: No evidence of ischemia or arrhythmia She presents after mechanical fall today. She may have had some dizziness but currently is well-appearing and asymptomatic. She has a right distal radius fracture as well as ulnar styloid fracture. She will be discharged home with orthopedic follow-up in the next week. She is advised she may need authorization from primary doctor for orthopedist visit. Coccyx contusion as well without signs of fracture, difficulty ambulating, deficits, additional concerning signs or symptoms. Because of patient's dizziness appears to be resolved and patient shows no episodes of acute cardiopulmonary emergency, deficits, signs of [employer] deficits, signs of stroke, [place], PE, CHF, CAD. The patient was stable with no new complaints during the ER course. Clinically, there is no current evidence to suggest meningitis, sepsis, acute abdomen, pneumonia, stroke, acute coronary syndrome, pulmonary embolism, aortic dissection or any other emergent condition appearing to require further evaluation or hospitalization. Patient counseled regarding my diagnostic impression and care plan. Prior to discharge all questions answered. Pt agrees with treatment plan and understands strict return precautions. Pt is instructed to follow up with primary care provider within 24-48 hours. Precautionary instructions provided including instructions to return to the ER if not improving or for any worsening or changing symptoms or concerns. Disclaimer: Inadvertent spelling and grammatical errors are likely due to EHR/dictation software use and do not reflect on the overall quality of patient care. Also, please note that the electronic time recorded on this note does not necessarily reflect the actual time of the patient encounter. Departure Diagnosis: Primary Impression: Fall Encounter type: initial encounter Qualified Codes: W19.XXXA - Unspecified fall, initial encounter Additional Impression: Radius distal fracture Encounter type: initial encounter Fracture type: closed Fracture morphology: unspecified fracture morphology Laterality: right Qualified Codes: S52.501A - Unspecified fracture of the lower end of right radius, initial encounter for closed fracture Patient Instructions: Fracture, Wrist [General] Referrals: ITZEL WANG MD, HRAIR E MD Additional Instructions: Coccyx x-rays read as normal. There is a fracture in the right wrist and area of pain. See orthopedist for further evaluation within the next week. May need authorization from primary doctor for orthopedist visit. Recheck otherwise for fevers, redness, new or worsening symptoms. PIERCE SALCIDO MD Apr 12, 2019 19:47
[2019-04-12 20:07] VITALS: BP 126/74; PULSE 59; RESP 16
== END 2019-04-12 20:29 | disposition home or self-care (01) ==
LOC: FTE 16:50
DX: S52.614A Nondisplaced fracture of right ulna styloid process, initial encounter for closed fracture (principal); N18.9 Chronic kidney disease, unspecified; E11.22 Type 2 diabetes mellitus with diabetic chronic kidney disease; I13.0 Hypertensive heart and chronic kidney disease with heart failure and stage 1 through stage 4 chronic kidney disease, or unspecified chronic kidney disease; I50.9 Heart failure, unspecified; W18.39XA Other fall on same level, initial encounter; Y92.9 Unspecified place or not applicable; Z95.1 Presence of aortocoronary bypass graft; Z79.82 Long term (current) use of aspirin
CPT/HCPCS: 72220; 93005

== ENCOUNTER 2019-05-19 08:53 | Inpatient (IN) | payer MEDICARE, MEDICAID ==
[~2019-05-19] VITALS: Ht 162.6 cm; Wt 70.0 kg
[2019-05-19] VITALS (15 sets, daily range): BP systolic 108–168; BP diastolic 56–77; PULSE 58–74; RESP 20
[~2019-05-19 08:53] MED LIST changes: +ACET500C5 PO; +FOLI-49 PO; +HYDR-3029 PO; +MEGE40TA2 PO; +NEPH PO; +TRAM50TA2 PO; +TRIA15CR55 TOP
[2019-05-19] MEDS ORDERED: CA CHLORIDE 10% 10 ML SYRINGE IV ONE ×2 (09:30→11:00)
[2019-05-19] MEDS ORDERED: DEXTROSE 50% 50 ML SYRINGE IV STA (10:44)
[2019-05-19] MEDS ORDERED: INSULIN REGULAR, HUMAN 100 UNIT/1 ML 3ML VIAL IVP STA (10:44)
[2019-05-19] MEDS ORDERED: ALBUTEROL 0.5% (NEB) 2.5 MG/0.5 ML AMP INH STA (10:44)
[2019-05-19] MEDS ORDERED: ASPIRIN 81 MG TAB PO ONE (11:00)
[2019-05-19] MEDS ORDERED: FUROSEMIDE 20 MG INJ IV ONE (11:00)
[2019-05-19] MEDS ORDERED: DEXTROSE 50% 50 ML SYRINGE IV PRN ×3 (11:00→15:30)
[2019-05-19] MEDS ORDERED: CEFTRIAXONE 1 GM/50 ML (PMX) 50 ML IVPB ONE (11:30)
[2019-05-19] MEDS ORDERED: DIPHENHYDRAMINE 50 MG INJ IV ONE (15:30)
[2019-05-19] MEDS ORDERED: GLUCOSE GEL 15 GRAM TUBE BUCCAL PRN (15:30)
[2019-05-19] MEDS ORDERED: GLUCOSE GEL 15 GRAM TUBE PO PRN ×2 (15:30)
[2019-05-19] MEDS ORDERED: HYDROCODONE/APAP (5/325) TAB PO PRN (15:30)
[2019-05-19] MEDS ORDERED: GLUCAGON 1 MG INJ IM PRN (15:30)
[2019-05-19] MEDS ORDERED: ONDANSETRON 4 MG INJ IV PRN (15:30)
[2019-05-19] MEDS ORDERED: NACL 0.9% 3 ML SYG IV SCH (15:30)
[2019-05-19] MEDS ORDERED: INSULIN ASPART [NOVOLOG] 3 ML PEN SC SCH (18:00)
[2019-05-19] MEDS: HYDROmorphONE 0.5 MG/0.5 ML SYG IV PRN (20:28)
[2019-05-19] MEDS: CALCIUM ACETATE 667 MG CAP PO SCH (21:16)
[2019-05-19] MEDS: LORAZEPAM 0.5 MG TAB PO PRN (22:25)
[2019-05-19] MEDS: HEPARIN 5,000 UNIT/1 ML VIAL SC SCH (23:30)
[2019-05-20] VITALS (7 sets, daily range): BP systolic 91–152; BP diastolic 42–67; PULSE 60–67; RESP 18–19
[2019-05-20] MEDS ORDERED: DIPHENHYDRAMINE 50 MG INJ IV PRN (02:30)
[2019-05-20] MEDS: PANTOPRAZOLE (EC) 40 MG TAB PO SCH (06:10)
[2019-05-20] MEDS: LINAGLIPTIN 5 MG TABLET PO SCH (08:38)
[2019-05-20] MEDS: MULTIVIT/CA CARB/B CMPLX/FA TAB PO SCH (08:38)
[2019-05-20] MEDS: ESCITALOPRAM 10 MG TAB PO SCH (08:38)
[2019-05-20] MEDS: CALCIUM ACETATE 667 MG CAP PO SCH ×3 (08:38→21:16)
[2019-05-20] MEDS: FOLIC ACID 1 MG TAB PO SCH (08:38)
[2019-05-20] MEDS: ASPIRIN (EC) 81 MG TAB PO SCH (08:38)
[2019-05-20] MEDS: HYDROmorphONE 0.5 MG/0.5 ML SYG IV PRN ×3 (08:39→19:53)
[2019-05-20] MEDS: AMLODIPINE 5 MG TAB PO SCH (08:39)
[2019-05-20] MEDS: HEPARIN 5,000 UNIT/1 ML VIAL SC SCH ×2 (08:41→21:26)
[2019-05-20] MEDS ORDERED: CALAMINE/PRAMOXINE LOT 180 ML BTL TOP SCH (11:30)
[2019-05-20] MEDS: hydrOXYzine HCL 10 MG TAB PO SCH ×2 (12:57→21:16)
[2019-05-20] MEDS: INSULIN ASPART [NOVOLOG] 3 ML PEN SC SCH ×3 (13:07→21:00)
[2019-05-20] MEDS: TRIAMCINOLONE ACET 0.1% 15 GM CR TOP SCH ×2 (14:25→21:17)
[2019-05-20] MEDS: CALAMINE 170 ML LOT TOP SCH (17:06)
[2019-05-20] MEDS: ZOLPIDEM 5 MG TAB PO PRN (23:19)
[2019-05-21] VITALS (20 sets, daily range): BP systolic 96–149; BP diastolic 37–76; PULSE 59–68; RESP 18–20
[2019-05-21] MEDS: PANTOPRAZOLE (EC) 40 MG TAB PO SCH (05:52)
[2019-05-21] MEDS: INSULIN ASPART [NOVOLOG] 3 ML PEN SC SCH ×4 (07:55→20:18)
[2019-05-21] MEDS: CALCIUM ACETATE 667 MG CAP PO SCH ×3 (08:09→20:20)
[2019-05-21] MEDS: hydrOXYzine HCL 10 MG TAB PO SCH ×3 (08:09→20:20)
[2019-05-21] MEDS: ASPIRIN (EC) 81 MG TAB PO SCH (08:09)
[2019-05-21] MEDS: MULTIVIT/CA CARB/B CMPLX/FA TAB PO SCH (08:09)
[2019-05-21] MEDS: FOLIC ACID 1 MG TAB PO SCH (08:10)
[2019-05-21] MEDS: AMLODIPINE 5 MG TAB PO SCH (08:10)
[2019-05-21] MEDS: LINAGLIPTIN 5 MG TABLET PO SCH (08:10)
[2019-05-21] MEDS: ESCITALOPRAM 10 MG TAB PO SCH (08:10)
[2019-05-21] MEDS ORDERED: REGADENOSON 0.4 MG/5 ML SYG ONE (08:11)
[2019-05-21] MEDS: TRIAMCINOLONE ACET 0.1% 15 GM CR TOP SCH ×2 (08:13→20:21)
[2019-05-21] MEDS: HEPARIN 5,000 UNIT/1 ML VIAL SC SCH ×2 (08:13→20:32)
[2019-05-21] MEDS: CALAMINE 170 ML LOT TOP SCH (08:14)
[2019-05-21] MEDS: HYDROmorphONE 0.5 MG/0.5 ML SYG IV PRN ×2 (11:41→19:57)
[2019-05-21] MEDS: ATORVASTATIN 10 MG TAB PO SCH (20:20)
[2019-05-22] VITALS (7 sets, daily range): BP systolic 88–164; BP diastolic 48–70; PULSE 56–79; RESP 18–20; Ht 162.6 cm; Wt 70.0 kg
[2019-05-22] MEDS: ZOLPIDEM 5 MG TAB PO PRN ×2 (02:54→22:22)
[2019-05-22] MEDS: PANTOPRAZOLE (EC) 40 MG TAB PO SCH (07:03)
[2019-05-22] MEDS: CALCIUM ACETATE 667 MG CAP PO SCH ×3 (08:30→20:17)
[2019-05-22] MEDS: hydrOXYzine HCL 10 MG TAB PO SCH ×3 (08:30→20:17)
[2019-05-22] MEDS: ESCITALOPRAM 10 MG TAB PO SCH (08:30)
[2019-05-22] MEDS: ASPIRIN (EC) 81 MG TAB PO SCH (08:30)
[2019-05-22] MEDS: MULTIVIT/CA CARB/B CMPLX/FA TAB PO SCH (08:30)
[2019-05-22] MEDS: LINAGLIPTIN 5 MG TABLET PO SCH (08:30)
[2019-05-22] MEDS: INSULIN ASPART [NOVOLOG] 3 ML PEN SC SCH ×4 (08:30→20:23)
[2019-05-22] MEDS: AMLODIPINE 5 MG TAB PO SCH (08:31)
[2019-05-22] MEDS: FOLIC ACID 1 MG TAB PO SCH (08:31)
[2019-05-22] MEDS: CALAMINE 170 ML LOT TOP SCH (09:00)
[2019-05-22] MEDS: HEPARIN 5,000 UNIT/1 ML VIAL SC SCH ×2 (09:11→20:23)
[2019-05-22] MEDS: TRIAMCINOLONE ACET 0.1% 15 GM CR TOP SCH ×2 (11:45→20:24)
[2019-05-22] MEDS: HYDROmorphONE 0.5 MG/0.5 ML SYG IV PRN ×2 (11:59→17:33)
[2019-05-22] MEDS: ATORVASTATIN 10 MG TAB PO SCH (20:17)
[2019-05-22] MEDS: traMADol 50 MG TAB GTB PRN (20:17)
[2019-05-22] MEDS: DOCUSATE SODIUM 100 MG CAP PO PRN (22:22)
[2019-05-23 03:53] VITALS: BP 149/67; PULSE 58; RESP 18
[2019-05-23] MEDS: traMADol 50 MG TAB GTB PRN (05:24)
[2019-05-23] MEDS: PANTOPRAZOLE (EC) 40 MG TAB PO SCH (05:24)
[2019-05-23 07:36] VITALS: BP 125/61; PULSE 58; RESP 18
[2019-05-23] MEDS: INSULIN ASPART [NOVOLOG] 3 ML PEN SC SCH ×4 (07:55→21:00)
[2019-05-23] MEDS: CALAMINE 170 ML LOT TOP SCH (09:00)
[2019-05-23] MEDS: traMADol 50 MG TAB PO PRN ×2 (10:35→14:38)
[2019-05-23] MEDS: MULTIVIT/CA CARB/B CMPLX/FA TAB PO SCH (10:35)
[2019-05-23] MEDS: AMLODIPINE 5 MG TAB PO SCH (10:36)
[2019-05-23] MEDS: ESCITALOPRAM 10 MG TAB PO SCH (10:36)
[2019-05-23] MEDS: FOLIC ACID 1 MG TAB PO SCH (10:37)
[2019-05-23] MEDS: hydrOXYzine HCL 10 MG TAB PO SCH ×3 (10:37→21:03)
[2019-05-23] MEDS: ASPIRIN (EC) 81 MG TAB PO SCH (10:37)
[2019-05-23] MEDS: LINAGLIPTIN 5 MG TABLET PO SCH (10:37)
[2019-05-23] MEDS: CALCIUM ACETATE 667 MG CAP PO SCH ×3 (10:37→21:03)
[2019-05-23] MEDS: TRIAMCINOLONE ACET 0.1% 15 GM CR TOP SCH ×2 (10:39→21:10)
[2019-05-23] MEDS: HEPARIN 5,000 UNIT/1 ML VIAL SC SCH ×2 (10:50→21:06)
[2019-05-23 16:06] VITALS: BP 128/60; PULSE 80; RESP 18
[2019-05-23] MEDS: morphine (ER) 15 MG TAB PO SCH ×2 (17:38→21:35)
[2019-05-23 19:59] VITALS: BP 142/65; PULSE 60; RESP 19
[2019-05-23 20:15] VITALS: BP 149/68; PULSE 57; RESP 16
[2019-05-23] MEDS: ATORVASTATIN 10 MG TAB PO SCH (21:03)
[2019-05-23] MEDS: ZOLPIDEM 5 MG TAB PO PRN (22:51)
[2019-05-24 01:52] VITALS: BP 125/61; PULSE 56; RESP 17
[2019-05-24] MEDS: traMADol 50 MG TAB PO PRN ×2 (04:34→17:31)
[2019-05-24] MEDS: PANTOPRAZOLE (EC) 40 MG TAB PO SCH (06:51)
[2019-05-24] MEDS: INSULIN ASPART [NOVOLOG] 3 ML PEN SC SCH ×4 (07:53→20:58)
[2019-05-24 08:00] VITALS: BP 137/65; PULSE 53; RESP 16
[2019-05-24] MEDS: FOLIC ACID 1 MG TAB PO SCH (08:18)
[2019-05-24] MEDS: CALCIUM ACETATE 667 MG CAP PO SCH ×3 (08:18→21:01)
[2019-05-24] MEDS: hydrOXYzine HCL 10 MG TAB PO SCH ×3 (08:18→21:00)
[2019-05-24] MEDS: MULTIVIT/CA CARB/B CMPLX/FA TAB PO SCH (08:18)
[2019-05-24] MEDS: ESCITALOPRAM 10 MG TAB PO SCH (08:18)
[2019-05-24] MEDS: ASPIRIN (EC) 81 MG TAB PO SCH (08:18)
[2019-05-24] MEDS: LINAGLIPTIN 5 MG TABLET PO SCH (08:18)
[2019-05-24] MEDS: morphine (ER) 15 MG TAB PO SCH ×2 (08:18→21:01)
[2019-05-24] MEDS: AMLODIPINE 5 MG TAB PO SCH (08:19)
[2019-05-24] MEDS: HEPARIN 5,000 UNIT/1 ML VIAL SC SCH ×2 (08:19→21:04)
[2019-05-24] MEDS: TRIAMCINOLONE ACET 0.1% 15 GM CR TOP SCH ×2 (12:07→21:05)
[2019-05-24] MEDS: CALAMINE 170 ML LOT TOP SCH (12:08)
[2019-05-24 14:00] VITALS: BP 122/59; PULSE 54; RESP 16
[2019-05-24 20:00] VITALS: BP 145/65; PULSE 58; RESP 18
[2019-05-24] MEDS: ATORVASTATIN 10 MG TAB PO SCH (21:00)
[2019-05-24 23:40] VITALS: BP 102/48; PULSE 57
[2019-05-24 23:55] VITALS: BP 95/46; PULSE 58
[2019-05-25] VITALS (15 sets, daily range): BP systolic 85–133; BP diastolic 44–67; PULSE 53–95; RESP 17–18
[2019-05-25] MEDS: traMADol 50 MG TAB PO PRN ×3 (02:25→17:26)
[2019-05-25] MEDS: LORAZEPAM 0.5 MG TAB PO PRN (03:30)
[2019-05-25] MEDS: PANTOPRAZOLE (EC) 40 MG TAB PO SCH (06:00)
[2019-05-25] MEDS: ACETAMINOPHEN 325 MG TAB PO PRN (06:51)
[2019-05-25] MEDS: INSULIN ASPART [NOVOLOG] 3 ML PEN SC SCH ×4 (08:09→20:59)
[2019-05-25] MEDS: CALCIUM ACETATE 667 MG CAP PO SCH ×3 (08:30→21:02)
[2019-05-25] MEDS: MULTIVIT/CA CARB/B CMPLX/FA TAB PO SCH (08:30)
[2019-05-25] MEDS: hydrOXYzine HCL 10 MG TAB PO SCH ×3 (08:30→21:02)
[2019-05-25] MEDS: ESCITALOPRAM 10 MG TAB PO SCH (08:30)
[2019-05-25] MEDS: AMLODIPINE 5 MG TAB PO SCH (08:30)
[2019-05-25] MEDS: ASPIRIN (EC) 81 MG TAB PO SCH (08:30)
[2019-05-25] MEDS: FOLIC ACID 1 MG TAB PO SCH (08:30)
[2019-05-25] MEDS: LINAGLIPTIN 5 MG TABLET PO SCH (08:30)
[2019-05-25] MEDS: morphine (ER) 15 MG TAB PO SCH ×2 (08:31→21:03)
[2019-05-25] MEDS: TRIAMCINOLONE ACET 0.1% 15 GM CR TOP SCH ×2 (08:35→21:05)
[2019-05-25] MEDS: HEPARIN 5,000 UNIT/1 ML VIAL SC SCH ×2 (08:37→21:02)
[2019-05-25] MEDS: CALAMINE 170 ML LOT TOP SCH (09:51)
[2019-05-25] MEDS: ATORVASTATIN 10 MG TAB PO SCH (21:02)
[2019-05-26] VITALS (18 sets, daily range): BP systolic 88–117; BP diastolic 39–58; PULSE 50–58; RESP 15–18
[2019-05-26] MEDS: traMADol 50 MG TAB PO PRN (03:05)
[2019-05-26] MEDS: PANTOPRAZOLE (EC) 40 MG TAB PO SCH (06:07)
[2019-05-26] MEDS: ACETAMINOPHEN 325 MG TAB PO PRN (06:07)
[2019-05-26] MEDS: INSULIN ASPART [NOVOLOG] 3 ML PEN SC SCH ×4 (08:00→20:08)
[2019-05-26] MEDS: AMLODIPINE 5 MG TAB PO SCH (08:06)
[2019-05-26] MEDS: hydrOXYzine HCL 10 MG TAB PO SCH ×3 (09:37→20:09)
[2019-05-26] MEDS: morphine (ER) 15 MG TAB PO SCH ×2 (09:37→20:11)
[2019-05-26] MEDS: ESCITALOPRAM 10 MG TAB PO SCH (09:37)
[2019-05-26] MEDS: LINAGLIPTIN 5 MG TABLET PO SCH (09:38)
[2019-05-26] MEDS: ASPIRIN (EC) 81 MG TAB PO SCH (09:38)
[2019-05-26] MEDS: FOLIC ACID 1 MG TAB PO SCH (09:38)
[2019-05-26] MEDS: MULTIVIT/CA CARB/B CMPLX/FA TAB PO SCH (09:38)
[2019-05-26] MEDS: CALCIUM ACETATE 667 MG CAP PO SCH ×3 (09:38→20:15)
[2019-05-26] MEDS: HEPARIN 5,000 UNIT/1 ML VIAL SC SCH ×2 (09:39→20:14)
[2019-05-26] MEDS: TRIAMCINOLONE ACET 0.1% 15 GM CR TOP SCH ×2 (09:40→20:29)
[2019-05-26] MEDS: CALAMINE 170 ML LOT TOP SCH (09:40)
[2019-05-26] MEDS: ATORVASTATIN 10 MG TAB PO SCH (20:09)
[2019-05-27 02:00] VITALS: BP 121/58; PULSE 73; RESP 17
[2019-05-27] MEDS: traMADol 50 MG TAB PO PRN (04:10)
[2019-05-27] MEDS: PANTOPRAZOLE (EC) 40 MG TAB PO SCH (05:34)
[2019-05-27] MEDS: INSULIN ASPART [NOVOLOG] 3 ML PEN SC SCH ×4 (08:00→21:00)
[2019-05-27] MEDS: AMLODIPINE 5 MG TAB PO SCH (09:00)
[2019-05-27 09:51] VITALS: BP 103/43; PULSE 59; RESP 16
[2019-05-27] MEDS: ESCITALOPRAM 10 MG TAB PO SCH (09:53)
[2019-05-27] MEDS: FOLIC ACID 1 MG TAB PO SCH (09:53)
[2019-05-27] MEDS: ASPIRIN (EC) 81 MG TAB PO SCH (09:53)
[2019-05-27] MEDS: CALCIUM ACETATE 667 MG CAP PO SCH ×3 (09:53→20:59)
[2019-05-27] MEDS: LINAGLIPTIN 5 MG TABLET PO SCH (09:54)
[2019-05-27] MEDS: morphine (ER) 15 MG TAB PO SCH ×2 (09:54→20:59)
[2019-05-27] MEDS: MULTIVIT/CA CARB/B CMPLX/FA TAB PO SCH (09:54)
[2019-05-27] MEDS: hydrOXYzine HCL 10 MG TAB PO SCH ×3 (09:54→20:58)
[2019-05-27] MEDS: HEPARIN 5,000 UNIT/1 ML VIAL SC SCH ×2 (09:56→21:00)
[2019-05-27] MEDS: CALAMINE 170 ML LOT TOP SCH (09:56)
[2019-05-27] MEDS: TRIAMCINOLONE ACET 0.1% 15 GM CR TOP SCH ×2 (09:56→21:11)
[2019-05-27 14:15] VITALS: BP 132/59; PULSE 55; RESP 16
[2019-05-27] MEDS: DOCUSATE SODIUM 100 MG CAP PO PRN (17:57)
[2019-05-27] MEDS: MAGNESIUM HYDROXIDE 30ML CUP PO PRN (17:57)
[2019-05-27 19:28] VITALS: BP 133/60; PULSE 60; RESP 18
[2019-05-27] MEDS: ATORVASTATIN 10 MG TAB PO SCH (20:58)
[2019-05-28] VITALS (18 sets, daily range): BP systolic 78–135; BP diastolic 40–79; PULSE 51–64; RESP 17–19
[2019-05-28] MEDS: PANTOPRAZOLE (EC) 40 MG TAB PO SCH (05:54)
[2019-05-28] MEDS: INSULIN ASPART [NOVOLOG] 3 ML PEN SC SCH ×4 (08:00→20:48)
[2019-05-28] MEDS: hydrOXYzine HCL 10 MG TAB PO SCH ×2 (09:00→12:53)
[2019-05-28] MEDS: CALCIUM ACETATE 667 MG CAP PO SCH ×3 (09:00→21:11)
[2019-05-28] MEDS: morphine (ER) 15 MG TAB PO SCH ×3 (09:00→21:11)
[2019-05-28] MEDS: HEPARIN 5,000 UNIT/1 ML VIAL SC SCH ×2 (09:00→21:12)
[2019-05-28] MEDS ORDERED: ALBUMIN HUMAN 25% 100 ML IV ONE (11:00)
[2019-05-28] MEDS: MULTIVIT/CA CARB/B CMPLX/FA TAB PO SCH (12:53)
[2019-05-28] MEDS: ESCITALOPRAM 10 MG TAB PO SCH (12:53)
[2019-05-28] MEDS: LINAGLIPTIN 5 MG TABLET PO SCH (12:53)
[2019-05-28] MEDS: ASPIRIN (EC) 81 MG TAB PO SCH (12:54)
[2019-05-28] MEDS: FOLIC ACID 1 MG TAB PO SCH (12:54)
[2019-05-28] MEDS: CALAMINE 170 ML LOT TOP SCH (12:56)
[2019-05-28] MEDS: TRIAMCINOLONE ACET 0.1% 15 GM CR TOP SCH ×2 (12:56→21:14)
[2019-05-28] MEDS ORDERED: IBUPROFEN 600 MG TAB PO ONE (13:00)
[2019-05-28] MEDS ORDERED: LIDOCAINE 1% (MPF) 5 ML VIAL ONE (16:29)
[2019-05-28] MEDS: ATORVASTATIN 10 MG TAB PO SCH (21:11)
[2019-05-29 02:00] VITALS: BP 118/57; PULSE 88; RESP 18
[2019-05-29] MEDS: PANTOPRAZOLE (EC) 40 MG TAB PO SCH (06:08)
[2019-05-29 08:00] VITALS: BP 121/60; PULSE 93; RESP 16
[2019-05-29] MEDS: INSULIN ASPART [NOVOLOG] 3 ML PEN SC SCH ×4 (08:00→20:40)
[2019-05-29] MEDS: morphine (ER) 15 MG TAB PO SCH (08:48)
[2019-05-29] MEDS: CALCIUM ACETATE 667 MG CAP PO SCH ×3 (08:49→21:00)
[2019-05-29] MEDS: LINAGLIPTIN 5 MG TABLET PO SCH (08:49)
[2019-05-29] MEDS: FOLIC ACID 1 MG TAB PO SCH (08:49)
[2019-05-29] MEDS: MULTIVIT/CA CARB/B CMPLX/FA TAB PO SCH (08:49)
[2019-05-29] MEDS: HEPARIN 5,000 UNIT/1 ML VIAL SC SCH ×2 (08:50→21:00)
[2019-05-29] MEDS: ASPIRIN (EC) 81 MG TAB PO SCH (08:50)
[2019-05-29] MEDS: ESCITALOPRAM 10 MG TAB PO SCH (08:50)
[2019-05-29] MEDS: TRIAMCINOLONE ACET 0.1% 15 GM CR TOP SCH ×2 (08:51→21:00)
[2019-05-29] MEDS: CALAMINE 170 ML LOT TOP SCH (08:51)
[2019-05-29] MEDS: DOCUSATE SODIUM 100 MG CAP PO PRN (12:47)
[2019-05-29 14:00] VITALS: BP 98/51; PULSE 58; RESP 16
[2019-05-29 16:00] VITALS: BP 92/48; PULSE 58; RESP 16
[2019-05-29] MEDS ORDERED: ALBUMIN HUMAN 5% 250 ML IV ONE (16:30)
[2019-05-29] MEDS: MAGNESIUM HYDROXIDE 30ML CUP PO PRN (18:44)
[2019-05-29 20:24] VITALS: BP 81/61; PULSE 58; RESP 18
[2019-05-29] MEDS: BALSAM PERU/CASTOR OIL 60 GM TUBE TOP SCH (21:00)
[2019-05-29] MEDS: ATORVASTATIN 10 MG TAB PO SCH (21:00)
[2019-05-29] MEDS ORDERED: SOD CHLORIDE 0.9% 500 ML IV ONE (21:30)
[2019-05-29 21:56] VITALS: BP 89/36; PULSE 49
[2019-05-29] MEDS ORDERED: ALBUMIN HUMAN 25% 100 ML IV ONE (22:00)
[2019-05-29] MEDS ORDERED: DOPamine-D5W 1.6 MG/ML 250 ML IV SCH (23:00)
[2019-05-30] VITALS (85 sets, daily range): BP systolic 59–113; BP diastolic 23–82; PULSE 55–133; RESP 10–24
[2019-05-30] MEDS ORDERED: NORepinephrine 8MG/250 ML (PMX 250 ML IV SCH
[2019-05-30] MEDS ORDERED: SOD CHLORIDE 0.9% 250 ML IV ONE
[2019-05-30] MEDS: CEFEPIME 1GM/50 ML (PMX) 50 ML IVPB SCH ×2 (00:40→08:18)
[2019-05-30] MEDS: PANTOPRAZOLE (EC) 40 MG TAB PO SCH (06:00)
[2019-05-30] MEDS: PHENYLephrine 20MG IN 250 ML 250 ML IV SCH ×3 (06:35→13:28)
[2019-05-30] MEDS: INSULIN ASPART [NOVOLOG] 3 ML PEN SC SCH ×4 (07:35→21:00)
[2019-05-30] MEDS ORDERED: ALBUMIN HUMAN 25% 50 ML IV ONE (08:00)
[2019-05-30] MEDS: ESCITALOPRAM 10 MG TAB PO SCH (08:15)
[2019-05-30] MEDS: CALCIUM ACETATE 667 MG CAP PO SCH ×3 (08:15→21:10)
[2019-05-30] MEDS: MULTIVIT/CA CARB/B CMPLX/FA TAB PO SCH (08:15)
[2019-05-30] MEDS: FOLIC ACID 1 MG TAB PO SCH (08:15)
[2019-05-30] MEDS: ASPIRIN (EC) 81 MG TAB PO SCH (08:15)
[2019-05-30] MEDS: LINAGLIPTIN 5 MG TABLET PO SCH (08:15)
[2019-05-30] MEDS: HEPARIN 5,000 UNIT/1 ML VIAL SC SCH ×2 (08:17→21:19)
[2019-05-30] MEDS: CALAMINE 170 ML LOT TOP SCH (09:00)
[2019-05-30] MEDS ORDERED: SOD CHLORIDE 0.9% 500 ML IV ONE (09:00)
[2019-05-30] MEDS: TRIAMCINOLONE ACET 0.1% 15 GM CR TOP SCH ×2 (09:00→21:00)
[2019-05-30] MEDS ORDERED: VANCOMYCIN IV PER PHARMACY XX SCH (09:30)
[2019-05-30] MEDS ORDERED: VANCOMYCIN 1 GM (PMX) 250 ML IVPB ONE (09:30)
[2019-05-30] MEDS: PHENYLephrine 40 MG in DEXTROSE 5% 246 ML IV SCH ×3 (14:44→21:21)
[2019-05-30] MEDS: SOD CHLORIDE 0.45% 1,000 ML IV SCH (14:55)
[2019-05-30] MEDS: BALSAM PERU/CASTOR OIL 60 GM TUBE TOP SCH ×2 (14:55→21:11)
[2019-05-30] MEDS: ARTIFICIAL TEARS 15 ML OPH BOTH EYES SCH ×2 (18:30→21:10)
[2019-05-30] MEDS: ATORVASTATIN 10 MG TAB PO SCH (21:10)
[2019-05-30] MEDS: LACTULOSE 30ML CUP PO SCH (21:10)
[2019-05-31] VITALS (100 sets, daily range): BP systolic 62–165; BP diastolic 16–140; PULSE 56–95; RESP 11–34
[2019-05-31] MEDS: PHENYLephrine 80 MG in DEXTROSE 5% 242 ML IV PRN ×4 (00:23→18:17)
[2019-05-31] MEDS: LACTULOSE 30ML CUP PO SCH ×3 (05:46→21:21)
[2019-05-31] MEDS: PANTOPRAZOLE (EC) 40 MG TAB PO SCH (05:46)
[2019-05-31] MEDS: INSULIN ASPART [NOVOLOG] 3 ML PEN SC SCH ×4 (07:57→20:50)
[2019-05-31] MEDS ORDERED: CEFEPIME 1GM/50 ML (PMX) 50 ML IVPB SCH (08:00)
[2019-05-31] MEDS: ASPIRIN (EC) 81 MG TAB PO SCH (08:15)
[2019-05-31] MEDS: LINAGLIPTIN 5 MG TABLET PO SCH (08:15)
[2019-05-31] MEDS: FOLIC ACID 1 MG TAB PO SCH (08:16)
[2019-05-31] MEDS: ESCITALOPRAM 10 MG TAB PO SCH (08:16)
[2019-05-31] MEDS: CALCIUM ACETATE 667 MG CAP PO SCH ×3 (08:16→20:46)
[2019-05-31] MEDS: MULTIVIT/CA CARB/B CMPLX/FA TAB PO SCH (08:16)
[2019-05-31] MEDS: CALAMINE 170 ML LOT TOP SCH (08:17)
[2019-05-31] MEDS: ARTIFICIAL TEARS 15 ML OPH BOTH EYES SCH ×4 (08:17→20:46)
[2019-05-31] MEDS: BALSAM PERU/CASTOR OIL 60 GM TUBE TOP SCH ×2 (08:18→20:44)
[2019-05-31] MEDS: TRIAMCINOLONE ACET 0.1% 15 GM CR TOP SCH ×2 (08:18→20:45)
[2019-05-31] MEDS: HEPARIN 5,000 UNIT/1 ML VIAL SC SCH ×2 (08:23→20:49)
[2019-05-31] MEDS: RIFAXIMIN 550 MG TAB PO SCH ×2 (14:30→20:45)
[2019-05-31] MEDS ORDERED: ALBUMIN HUMAN 25% 100 ML IV ONE (15:00)
[2019-05-31] MEDS ORDERED: ALBUMIN HUMAN 25% 50 ML IV ONE (15:00)
[2019-05-31] MEDS: metroNIDAZOLE 500 MG/NS (PMX) 100 ML IVPB SCH (17:58)
[2019-05-31] MEDS: MEROPENEM 500MG/50 ML (PMX) 50 ML IVPB SCH (18:04)
[2019-05-31] MEDS: SOD CHLORIDE 0.45% 1,000 ML IV SCH (18:05)
[2019-05-31] MEDS: MUPIROCIN 2% 22 GM OINT TOP SCH (20:44)
[2019-05-31] MEDS: ATORVASTATIN 10 MG TAB PO SCH (20:45)
[2019-06-01] VITALS (83 sets, daily range): BP systolic 85–158; BP diastolic 13–129; PULSE 51–68; RESP 10–25
[2019-06-01] MEDS: metroNIDAZOLE 500 MG/NS (PMX) 100 ML IVPB SCH ×3 (01:02→16:57)
[2019-06-01] MEDS: PHENYLephrine 80 MG in DEXTROSE 5% 242 ML IV PRN ×2 (01:10→08:17)
[2019-06-01] MEDS ORDERED: HALOPERIDOL 5 MG INJ IV PRN (04:30)
[2019-06-01] MEDS: LACTULOSE 30ML CUP PO SCH ×3 (05:20→22:00)
[2019-06-01] MEDS: PANTOPRAZOLE (EC) 40 MG TAB PO SCH (06:36)
[2019-06-01] MEDS: INSULIN ASPART [NOVOLOG] 3 ML PEN SC SCH ×4 (07:58→20:38)
[2019-06-01] MEDS: HEPARIN 5,000 UNIT/1 ML VIAL SC SCH ×2 (07:59→20:47)
[2019-06-01] MEDS: FOLIC ACID 1 MG TAB PO SCH (08:02)
[2019-06-01] MEDS: CALAMINE 170 ML LOT TOP SCH (08:02)
[2019-06-01] MEDS: ESCITALOPRAM 10 MG TAB PO SCH (08:02)
[2019-06-01] MEDS: ASPIRIN (EC) 81 MG TAB PO SCH (08:02)
[2019-06-01] MEDS: ARTIFICIAL TEARS 15 ML OPH BOTH EYES SCH ×4 (08:02→20:47)
[2019-06-01] MEDS: LINAGLIPTIN 5 MG TABLET PO SCH (08:02)
[2019-06-01] MEDS: CALCIUM ACETATE 667 MG CAP PO SCH ×3 (08:02→20:37)
[2019-06-01] MEDS: BALSAM PERU/CASTOR OIL 60 GM TUBE TOP SCH ×2 (08:03→20:38)
[2019-06-01] MEDS: MUPIROCIN 2% 22 GM OINT TOP SCH ×2 (08:03→20:38)
[2019-06-01] MEDS: MULTIVIT/CA CARB/B CMPLX/FA TAB PO SCH (08:05)
[2019-06-01] MEDS: RIFAXIMIN 550 MG TAB PO SCH ×2 (08:05→20:37)
[2019-06-01] MEDS: TRIAMCINOLONE ACET 0.1% 15 GM CR TOP SCH ×2 (08:05→21:57)
[2019-06-01] MEDS: SOD CHLORIDE 0.45% 1,000 ML IV SCH (13:45)
[2019-06-01] MEDS ORDERED: VANCOMYCIN 1 GM 250 ML IVPB SCH (14:00)
[2019-06-01] MEDS: MEROPENEM 500MG/50 ML (PMX) 50 ML IVPB SCH (18:12)
[2019-06-01] MEDS: ATORVASTATIN 10 MG TAB PO SCH (20:35)
[2019-06-01] MEDS: MELATONIN 5 MG TABLET PO SCH (21:53)
[2019-06-02] VITALS (46 sets, daily range): BP systolic 90–141; BP diastolic 41–94; PULSE 48–62; RESP 11–23
[2019-06-02] MEDS: metroNIDAZOLE 500 MG/NS (PMX) 100 ML IVPB SCH ×3 (01:56→19:37)
[2019-06-02] MEDS: SOD CHLORIDE 0.45% 1,000 ML IV SCH (04:07)
[2019-06-02] MEDS: LACTULOSE 30ML CUP PO SCH ×3 (06:00→21:33)
[2019-06-02] MEDS: PANTOPRAZOLE (EC) 40 MG TAB PO SCH (06:34)
[2019-06-02] MEDS: INSULIN ASPART [NOVOLOG] 3 ML PEN SC SCH ×4 (07:35→21:00)
[2019-06-02] MEDS: ESCITALOPRAM 10 MG TAB PO SCH (09:00)
[2019-06-02] MEDS: FOLIC ACID 1 MG TAB PO SCH (09:08)
[2019-06-02] MEDS: ARTIFICIAL TEARS 15 ML OPH BOTH EYES SCH ×4 (09:08→21:34)
[2019-06-02] MEDS: ASPIRIN (EC) 81 MG TAB PO SCH (09:09)
[2019-06-02] MEDS: CALCIUM ACETATE 667 MG CAP PO SCH ×3 (09:10→21:35)
[2019-06-02] MEDS: MULTIVIT/CA CARB/B CMPLX/FA TAB PO SCH (09:10)
[2019-06-02] MEDS: LINAGLIPTIN 5 MG TABLET PO SCH (09:11)
[2019-06-02] MEDS: RIFAXIMIN 550 MG TAB PO SCH ×2 (09:11→21:35)
[2019-06-02] MEDS: TRIAMCINOLONE ACET 0.1% 15 GM CR TOP SCH ×2 (09:11→21:33)
[2019-06-02] MEDS: CALAMINE 170 ML LOT TOP SCH (09:11)
[2019-06-02] MEDS: BALSAM PERU/CASTOR OIL 60 GM TUBE TOP SCH ×2 (09:12→21:33)
[2019-06-02] MEDS: HEPARIN 5,000 UNIT/1 ML VIAL SC SCH ×2 (09:20→21:39)
[2019-06-02] MEDS: MUPIROCIN 2% 22 GM OINT TOP SCH ×2 (11:37→21:33)
[2019-06-02] MEDS: MEROPENEM 500MG/50 ML (PMX) 50 ML IVPB SCH (18:09)
[2019-06-02] MEDS: ATORVASTATIN 10 MG TAB PO SCH (21:34)
[2019-06-02] MEDS: MELATONIN 5 MG TABLET PO SCH (21:34)
[2019-06-03] VITALS (19 sets, daily range): BP systolic 105–148; BP diastolic 49–68; PULSE 61–71; RESP 18–19
[2019-06-03] MEDS: metroNIDAZOLE 500 MG/NS (PMX) 100 ML IVPB SCH ×3 (01:30→17:59)
[2019-06-03] MEDS: PANTOPRAZOLE (EC) 40 MG TAB PO SCH (06:56)
[2019-06-03] MEDS: LACTULOSE 30ML CUP PO SCH ×3 (06:56→23:00)
[2019-06-03] MEDS: INSULIN ASPART [NOVOLOG] 3 ML PEN SC SCH ×4 (08:00→21:00)
[2019-06-03] MEDS: ARTIFICIAL TEARS 15 ML OPH BOTH EYES SCH ×4 (09:00→21:12)
[2019-06-03] MEDS: CALCIUM ACETATE 667 MG CAP PO SCH ×3 (09:00→20:56)
[2019-06-03] MEDS: MULTIVIT/CA CARB/B CMPLX/FA TAB PO SCH (13:54)
[2019-06-03] MEDS: ESCITALOPRAM 10 MG TAB PO SCH (13:55)
[2019-06-03] MEDS: RIFAXIMIN 550 MG TAB PO SCH ×2 (13:55→20:56)
[2019-06-03] MEDS: FOLIC ACID 1 MG TAB PO SCH (13:55)
[2019-06-03] MEDS: LINAGLIPTIN 5 MG TABLET PO SCH (13:55)
[2019-06-03] MEDS: BALSAM PERU/CASTOR OIL 60 GM TUBE TOP SCH ×2 (13:56→21:11)
[2019-06-03] MEDS: CALAMINE 170 ML LOT TOP SCH (13:56)
[2019-06-03] MEDS: MUPIROCIN 2% 22 GM OINT TOP SCH ×2 (13:56→21:11)
[2019-06-03] MEDS: TRIAMCINOLONE ACET 0.1% 15 GM CR TOP SCH ×2 (13:57→21:11)
[2019-06-03] MEDS ORDERED: PEG/ELECTROLYTES 4L BTL PO ONE ×2 (17:00→20:00)
[2019-06-03] MEDS ORDERED: BISACODYL (EC) 5 MG TAB PO ONE ×2 (17:00→20:00)
[2019-06-03] MEDS: EPOETIN ALFA-EPBX (ESRD) 4,000 UNIT/ML VIAL SC SCH (17:00)
[2019-06-03] MEDS: MEROPENEM 500MG/50 ML (PMX) 50 ML IVPB SCH (17:58)
[2019-06-03] MEDS: MELATONIN 5 MG TABLET PO SCH (20:56)
[2019-06-03] MEDS: ATORVASTATIN 10 MG TAB PO SCH (20:56)
[2019-06-04] VITALS (8 sets, daily range): BP systolic 128–162; BP diastolic 60–74; PULSE 63–73; RESP 18–20
[2019-06-04] MEDS: metroNIDAZOLE 500 MG/NS (PMX) 100 ML IVPB SCH (01:52)
[2019-06-04] MEDS: PANTOPRAZOLE (EC) 40 MG TAB PO SCH (05:35)
[2019-06-04] MEDS: LACTULOSE 30ML CUP PO SCH ×3 (05:35→22:00)
[2019-06-04] MEDS: INSULIN ASPART [NOVOLOG] 3 ML PEN SC SCH ×4 (08:00→20:50)
[2019-06-04] MEDS: FOLIC ACID 1 MG TAB PO SCH (09:00)
[2019-06-04] MEDS: CALAMINE 170 ML LOT TOP SCH (09:00)
[2019-06-04] MEDS: ARTIFICIAL TEARS 15 ML OPH BOTH EYES SCH ×4 (09:00→20:51)
[2019-06-04] MEDS: CALCIUM ACETATE 667 MG CAP PO SCH ×3 (09:00→20:48)
[2019-06-04] MEDS: MULTIVIT/CA CARB/B CMPLX/FA TAB PO SCH (09:00)
[2019-06-04] MEDS: RIFAXIMIN 550 MG TAB PO SCH ×2 (09:00→20:48)
[2019-06-04] MEDS ORDERED: PROPOFOL 60 ML ONE (11:03)
[2019-06-04] MEDS ORDERED: LIDOCAINE 2% (SDV) 5 ML INJ ONE (11:03)
[2019-06-04] MEDS ORDERED: VANCOMYCIN 1 GM 250 ML IVPB SCH (12:00)
[2019-06-04] MEDS: ESCITALOPRAM 10 MG TAB PO SCH (14:02)
[2019-06-04] MEDS: LINAGLIPTIN 5 MG TABLET PO SCH (14:03)
[2019-06-04] MEDS: BALSAM PERU/CASTOR OIL 60 GM TUBE TOP SCH ×2 (14:04→20:49)
[2019-06-04] MEDS: MUPIROCIN 2% 22 GM OINT TOP SCH ×2 (14:04→20:49)
[2019-06-04] MEDS: TRIAMCINOLONE ACET 0.1% 15 GM CR TOP SCH ×2 (14:05→20:49)
[2019-06-04] MEDS ORDERED: GENTAMICIN IV PER PHARMACY XX SCH (15:00)
[2019-06-04] MEDS ORDERED: GENTAMICIN 120 MG/NS (PMX) 100 ML IVPB SCH (16:30)
[2019-06-04] MEDS: ATORVASTATIN 10 MG TAB PO SCH (20:48)
[2019-06-04] MEDS: MELATONIN 5 MG TABLET PO SCH (20:48)
[2019-06-05] VITALS (18 sets, daily range): BP systolic 94–171; BP diastolic 47–78; PULSE 58–97; RESP 17–22
[2019-06-05] MEDS: LACTULOSE 30ML CUP PO SCH ×3 (06:23→21:50)
[2019-06-05] MEDS: PANTOPRAZOLE (EC) 40 MG TAB PO SCH (06:23)
[2019-06-05] MEDS: BALSAM PERU/CASTOR OIL 60 GM TUBE TOP SCH ×2 (07:54→21:47)
[2019-06-05] MEDS: TRIAMCINOLONE ACET 0.1% 15 GM CR TOP SCH ×2 (07:54→22:02)
[2019-06-05] MEDS: CALAMINE 170 ML LOT TOP SCH (07:55)
[2019-06-05] MEDS: LINAGLIPTIN 5 MG TABLET PO SCH (07:56)
[2019-06-05] MEDS: MULTIVIT/CA CARB/B CMPLX/FA TAB PO SCH (07:56)
[2019-06-05] MEDS: ESCITALOPRAM 10 MG TAB PO SCH (07:56)
[2019-06-05] MEDS: RIFAXIMIN 550 MG TAB PO SCH ×2 (07:56→22:14)
[2019-06-05] MEDS: FOLIC ACID 1 MG TAB PO SCH (07:56)
[2019-06-05] MEDS: CALCIUM ACETATE 667 MG CAP PO SCH ×3 (07:57→22:14)
[2019-06-05] MEDS: ARTIFICIAL TEARS 15 ML OPH BOTH EYES SCH ×4 (07:57→21:46)
[2019-06-05] MEDS: MUPIROCIN 2% 22 GM OINT TOP SCH ×2 (08:01→21:46)
[2019-06-05] MEDS ORDERED: GENTAMICIN 60 MG in SOD CHLORIDE 0.9% 50 ML IVPB SCH (09:00)
[2019-06-05] MEDS: INSULIN ASPART [NOVOLOG] 3 ML PEN SC SCH ×4 (09:09→21:00)
[2019-06-05] MEDS: EPOETIN ALFA-EPBX (ESRD) 4,000 UNIT/ML VIAL SC SCH (18:12)
[2019-06-05] MEDS: MELATONIN 5 MG TABLET PO SCH (22:14)
[2019-06-05] MEDS: ATORVASTATIN 10 MG TAB PO SCH (22:14)
[2019-06-06] VITALS (7 sets, daily range): BP systolic 108–170; BP diastolic 55–95; PULSE 67–84; RESP 18–22
[2019-06-06] MEDS: LACTULOSE 30ML CUP PO SCH ×3 (05:48→22:00)
[2019-06-06] MEDS: PANTOPRAZOLE (EC) 40 MG TAB PO SCH (05:48)
[2019-06-06] MEDS: INSULIN ASPART [NOVOLOG] 3 ML PEN SC SCH ×4 (08:00→21:00)
[2019-06-06] MEDS: CALCIUM ACETATE 667 MG CAP PO SCH ×3 (09:00→22:38)
[2019-06-06] MEDS: MULTIVIT/CA CARB/B CMPLX/FA TAB PO SCH (09:17)
[2019-06-06] MEDS: MUPIROCIN 2% 22 GM OINT TOP SCH ×2 (09:17→22:36)
[2019-06-06] MEDS: FOLIC ACID 1 MG TAB PO SCH (09:17)
[2019-06-06] MEDS: CALAMINE 170 ML LOT TOP SCH (09:17)
[2019-06-06] MEDS: BALSAM PERU/CASTOR OIL 60 GM TUBE TOP SCH ×2 (09:17→22:37)
[2019-06-06] MEDS: RIFAXIMIN 550 MG TAB PO SCH ×2 (09:17→22:38)
[2019-06-06] MEDS: LINAGLIPTIN 5 MG TABLET PO SCH (09:17)
[2019-06-06] MEDS: ARTIFICIAL TEARS 15 ML OPH BOTH EYES SCH ×4 (09:17→22:37)
[2019-06-06] MEDS: TRIAMCINOLONE ACET 0.1% 15 GM CR TOP SCH ×2 (09:17→22:36)
[2019-06-06] MEDS: ESCITALOPRAM 10 MG TAB PO SCH (09:17)
[2019-06-06] MEDS ORDERED: LIDOCAINE 1% (MPF) 5 ML VIAL ONE (10:50)
[2019-06-06] MEDS ORDERED: ALBUMIN HUMAN 25% 50 ML IV ONE (14:30)
[2019-06-06] MEDS: ATORVASTATIN 10 MG TAB PO SCH (22:38)
[2019-06-06] MEDS: MELATONIN 5 MG TABLET PO SCH (22:38)
[2019-06-07] VITALS (22 sets, daily range): BP systolic 88–146; BP diastolic 49–61; PULSE 70–76; RESP 18–20
[2019-06-07] MEDS: LACTULOSE 30ML CUP PO SCH ×3 (05:55→21:46)
[2019-06-07] MEDS: PANTOPRAZOLE (EC) 40 MG TAB PO SCH (05:56)
[2019-06-07] MEDS: INSULIN ASPART [NOVOLOG] 3 ML PEN SC SCH ×4 (07:50→21:00)
[2019-06-07] MEDS: MULTIVIT/CA CARB/B CMPLX/FA TAB PO SCH (08:50)
[2019-06-07] MEDS: ESCITALOPRAM 10 MG TAB PO SCH (08:50)
[2019-06-07] MEDS: RIFAXIMIN 550 MG TAB PO SCH ×2 (08:50→21:45)
[2019-06-07] MEDS: FOLIC ACID 1 MG TAB PO SCH (08:50)
[2019-06-07] MEDS: LINAGLIPTIN 5 MG TABLET PO SCH (08:50)
[2019-06-07] MEDS: CALCIUM ACETATE 667 MG CAP PO SCH ×3 (08:50→21:45)
[2019-06-07] MEDS: MUPIROCIN 2% 22 GM OINT TOP SCH ×2 (08:57→21:46)
[2019-06-07] MEDS: BALSAM PERU/CASTOR OIL 60 GM TUBE TOP SCH ×2 (08:59→21:46)
[2019-06-07] MEDS: TRIAMCINOLONE ACET 0.1% 15 GM CR TOP SCH ×2 (08:59→21:46)
[2019-06-07] MEDS: CALAMINE 170 ML LOT TOP SCH (09:00)
[2019-06-07] MEDS: ARTIFICIAL TEARS 15 ML OPH BOTH EYES SCH ×4 (09:02→21:46)
[2019-06-07] MEDS ORDERED: MEROPENEM 500MG/50 ML (PMX) 50 ML IVPB SCH (13:00)
[2019-06-07] MEDS: MEROPENEM 500MG/50 ML (PMX) 50 ML IVPB SCH (13:31)
[2019-06-07] MEDS: EPOETIN ALFA-EPBX (ESRD) 4,000 UNIT/ML VIAL SC SCH (17:43)
[2019-06-07] MEDS: ATORVASTATIN 10 MG TAB PO SCH (21:45)
[2019-06-07] MEDS: MELATONIN 5 MG TABLET PO SCH (21:45)
[2019-06-08] VITALS (7 sets, daily range): BP systolic 127–152; BP diastolic 60–69; PULSE 71–86; RESP 18–19
[2019-06-08] MEDS: PANTOPRAZOLE (EC) 40 MG TAB PO SCH (05:43)
[2019-06-08] MEDS: LACTULOSE 30ML CUP PO SCH ×3 (05:43→21:28)
[2019-06-08] MEDS: INSULIN ASPART [NOVOLOG] 3 ML PEN SC SCH ×4 (07:55→21:00)
[2019-06-08] MEDS ORDERED: VANCOMYCIN 1 GM 250 ML IVPB SCH (08:00)
[2019-06-08] MEDS: ESCITALOPRAM 10 MG TAB PO SCH (08:45)
[2019-06-08] MEDS: LINAGLIPTIN 5 MG TABLET PO SCH (08:45)
[2019-06-08] MEDS: MULTIVIT/CA CARB/B CMPLX/FA TAB PO SCH (08:45)
[2019-06-08] MEDS: FOLIC ACID 1 MG TAB PO SCH (08:45)
[2019-06-08] MEDS: RIFAXIMIN 550 MG TAB PO SCH ×2 (08:45→21:25)
[2019-06-08] MEDS: CALCIUM ACETATE 667 MG CAP PO SCH ×3 (08:45→21:25)
[2019-06-08] MEDS: MUPIROCIN 2% 22 GM OINT TOP SCH ×2 (08:46→21:28)
[2019-06-08] MEDS: ARTIFICIAL TEARS 15 ML OPH BOTH EYES SCH ×4 (08:46→21:32)
[2019-06-08] MEDS: BALSAM PERU/CASTOR OIL 60 GM TUBE TOP SCH ×2 (08:47→21:28)
[2019-06-08] MEDS: CALAMINE 170 ML LOT TOP SCH (08:48)
[2019-06-08] MEDS: TRIAMCINOLONE ACET 0.1% 15 GM CR TOP SCH ×2 (08:49→21:28)
[2019-06-08] MEDS ORDERED: SOD CHLORIDE 0.9% 250 ML IV* ONE (10:04)
[2019-06-08] MEDS: MEROPENEM 500MG/50 ML (PMX) 50 ML IVPB SCH (13:16)
[2019-06-08] MEDS: MELATONIN 5 MG TABLET PO SCH (21:25)
[2019-06-08] MEDS: ATORVASTATIN 10 MG TAB PO SCH (21:25)
[2019-06-09 04:14] VITALS: BP 137/75; PULSE 85; RESP 20
[2019-06-09] MEDS: LACTULOSE 30ML CUP PO SCH ×3 (05:26→20:55)
[2019-06-09] MEDS: PANTOPRAZOLE (EC) 40 MG TAB PO SCH (05:26)
[2019-06-09 07:04] VITALS: BP 153/70; PULSE 69; RESP 17
[2019-06-09] MEDS: INSULIN ASPART [NOVOLOG] 3 ML PEN SC SCH ×4 (07:54→20:54)
[2019-06-09] MEDS: ARTIFICIAL TEARS 15 ML OPH BOTH EYES SCH ×4 (08:43→20:52)
[2019-06-09] MEDS: FOLIC ACID 1 MG TAB PO SCH (08:43)
[2019-06-09] MEDS: CALCIUM ACETATE 667 MG CAP PO SCH ×3 (08:43→20:53)
[2019-06-09] MEDS: LINAGLIPTIN 5 MG TABLET PO SCH (08:44)
[2019-06-09] MEDS: RIFAXIMIN 550 MG TAB PO SCH ×2 (08:44→20:52)
[2019-06-09] MEDS: ESCITALOPRAM 10 MG TAB PO SCH (08:44)
[2019-06-09] MEDS: BALSAM PERU/CASTOR OIL 60 GM TUBE TOP SCH ×2 (08:44→20:54)
[2019-06-09] MEDS: MULTIVIT/CA CARB/B CMPLX/FA TAB PO SCH (08:44)
[2019-06-09] MEDS: CALAMINE 170 ML LOT TOP SCH (08:45)
[2019-06-09] MEDS: MUPIROCIN 2% 22 GM OINT TOP SCH ×2 (08:46→20:54)
[2019-06-09] MEDS: TRIAMCINOLONE ACET 0.1% 15 GM CR TOP SCH ×2 (08:46→20:54)
[2019-06-09 12:13] VITALS: BP 137/65; PULSE 71; RESP 19
[2019-06-09] MEDS: MEROPENEM 500MG/50 ML (PMX) 50 ML IVPB SCH (13:04)
[2019-06-09 20:00] VITALS: BP 152/70; PULSE 67; RESP 18
[2019-06-09] MEDS: MELATONIN 5 MG TABLET PO SCH (20:52)
[2019-06-09] MEDS: ATORVASTATIN 10 MG TAB PO SCH (20:53)
[2019-06-09 23:50] VITALS: BP 157/70; PULSE 70; RESP 18
[2019-06-10] VITALS (20 sets, daily range): BP systolic 134–160; BP diastolic 59–80; PULSE 58–72; RESP 16–20
[2019-06-10] MEDS: LACTULOSE 30ML CUP PO SCH ×3 (06:00→22:00)
[2019-06-10] MEDS: PANTOPRAZOLE (EC) 40 MG TAB PO SCH (06:18)
[2019-06-10] MEDS: INSULIN ASPART [NOVOLOG] 3 ML PEN SC SCH ×4 (08:00→20:50)
[2019-06-10] MEDS: CALCIUM ACETATE 667 MG CAP PO SCH ×3 (08:37→22:00)
[2019-06-10] MEDS: ARTIFICIAL TEARS 15 ML OPH BOTH EYES SCH ×4 (08:37→21:00)
[2019-06-10] MEDS: MULTIVIT/CA CARB/B CMPLX/FA TAB PO SCH (08:37)
[2019-06-10] MEDS: LINAGLIPTIN 5 MG TABLET PO SCH (08:37)
[2019-06-10] MEDS: TRIAMCINOLONE ACET 0.1% 15 GM CR TOP SCH ×2 (08:38→21:00)
[2019-06-10] MEDS: ESCITALOPRAM 10 MG TAB PO SCH (08:38)
[2019-06-10] MEDS: RIFAXIMIN 550 MG TAB PO SCH ×2 (08:38→22:00)
[2019-06-10] MEDS: FOLIC ACID 1 MG TAB PO SCH (08:38)
[2019-06-10] MEDS: MUPIROCIN 2% 22 GM OINT TOP SCH ×2 (08:39→21:00)
[2019-06-10] MEDS: BALSAM PERU/CASTOR OIL 60 GM TUBE TOP SCH ×2 (08:39→21:00)
[2019-06-10] MEDS: CALAMINE 170 ML LOT TOP SCH (09:19)
[2019-06-10] MEDS: MEROPENEM 500MG/50 ML (PMX) 50 ML IVPB SCH (18:48)
[2019-06-10] MEDS: EPOETIN ALFA-EPBX (ESRD) 4,000 UNIT/ML VIAL SC SCH (18:52)
[2019-06-10] MEDS: ATORVASTATIN 10 MG TAB PO SCH (21:59)
[2019-06-10] MEDS: MELATONIN 5 MG TABLET PO SCH (22:00)
[2019-06-10] MEDS: ZOLPIDEM 5 MG TAB PO PRN (23:57)
[2019-06-11] VITALS (7 sets, daily range): BP systolic 139–164; BP diastolic 64–76; PULSE 63–71; RESP 18–20
[2019-06-11] MEDS: ZOLPIDEM 5 MG TAB PO PRN ×2 (00:20→23:32)
[2019-06-11] MEDS: PANTOPRAZOLE (EC) 40 MG TAB PO SCH (05:50)
[2019-06-11] MEDS: LACTULOSE 30ML CUP PO SCH ×3 (05:50→21:18)
[2019-06-11] MEDS: INSULIN ASPART [NOVOLOG] 3 ML PEN SC SCH ×4 (07:51→21:00)
[2019-06-11] MEDS: MULTIVIT/CA CARB/B CMPLX/FA TAB PO SCH (09:00)
[2019-06-11] MEDS: ARTIFICIAL TEARS 15 ML OPH BOTH EYES SCH ×3 (09:18→21:15)
[2019-06-11] MEDS: BALSAM PERU/CASTOR OIL 60 GM TUBE TOP SCH ×2 (09:19→21:17)
[2019-06-11] MEDS: TRIAMCINOLONE ACET 0.1% 15 GM CR TOP SCH ×2 (09:19→21:17)
[2019-06-11] MEDS: MUPIROCIN 2% 22 GM OINT TOP SCH ×3 (09:19→21:16)
[2019-06-11] MEDS: CALAMINE 170 ML LOT TOP SCH (09:21)
[2019-06-11] MEDS: RIFAXIMIN 550 MG TAB PO SCH ×2 (09:59→21:16)
[2019-06-11] MEDS: CALCIUM ACETATE 667 MG CAP PO SCH ×3 (10:00→21:16)
[2019-06-11] MEDS: LINAGLIPTIN 5 MG TABLET PO SCH (10:00)
[2019-06-11] MEDS: FOLIC ACID 1 MG TAB PO SCH (10:00)
[2019-06-11] MEDS: ESCITALOPRAM 10 MG TAB PO SCH (10:00)
[2019-06-11] MEDS ORDERED: hydrALAzine 20 MG INJ IV PRN (13:00)
[2019-06-11] MEDS ORDERED: AMLODIPINE 5 MG TAB PO SCH (13:30)
[2019-06-11] MEDS: MEROPENEM 500MG/50 ML (PMX) 50 ML IVPB SCH (14:17)
[2019-06-11] MEDS: ATORVASTATIN 10 MG TAB PO SCH (21:15)
[2019-06-11] MEDS: MELATONIN 5 MG TABLET PO SCH (21:15)
[2019-06-12] VITALS (18 sets, daily range): BP systolic 132–153; BP diastolic 63–86; PULSE 57–66; RESP 17–20
[2019-06-12] MEDS: LACTULOSE 30ML CUP PO SCH ×2 (06:00→14:00)
[2019-06-12] MEDS: PANTOPRAZOLE (EC) 40 MG TAB PO SCH (06:19)
[2019-06-12] MEDS: INSULIN ASPART [NOVOLOG] 3 ML PEN SC SCH ×3 (08:00→18:06)
[2019-06-12] MEDS: RIFAXIMIN 550 MG TAB PO SCH (08:34)
[2019-06-12] MEDS: ESCITALOPRAM 10 MG TAB PO SCH (08:34)
[2019-06-12] MEDS: MULTIVIT/CA CARB/B CMPLX/FA TAB PO SCH (08:34)
[2019-06-12] MEDS: FOLIC ACID 1 MG TAB PO SCH (08:35)
[2019-06-12] MEDS: CALCIUM ACETATE 667 MG CAP PO SCH ×2 (08:35→12:01)
[2019-06-12] MEDS: LINAGLIPTIN 5 MG TABLET PO SCH (08:35)
[2019-06-12] MEDS: CALAMINE 170 ML LOT TOP SCH (08:37)
[2019-06-12] MEDS: BALSAM PERU/CASTOR OIL 60 GM TUBE TOP SCH (08:37)
[2019-06-12] MEDS: TRIAMCINOLONE ACET 0.1% 15 GM CR TOP SCH (08:38)
[2019-06-12] MEDS: ARTIFICIAL TEARS 15 ML OPH BOTH EYES SCH ×3 (08:38→17:50)
[2019-06-12] MEDS: MUPIROCIN 2% 22 GM OINT TOP SCH (08:39)
[2019-06-12] MEDS: ACETAMINOPHEN 325 MG TAB PO PRN (11:57)
[2019-06-12] MEDS ORDERED: VANCOMYCIN 1 GM 250 ML IVPB SCH (12:00)
[2019-06-12] MEDS: MEROPENEM 500MG/50 ML (PMX) 50 ML IVPB SCH ×2 (13:30→17:50)
== END 2019-06-12 20:33 | disposition home health service (06) | DRG 280 ==
LOC: E/R 08:53 → TEL 10:48 → PP2 05-23 20:01 → ICU 05-29 23:08 → 6WM 06-02 16:12
PROVIDERS: ADMIT Internal Medicine; ATTEND Internal Medicine
PROC: 5A1D70Z Performance of Urinary Filtration, Intermittent, Less than 6 Hours Per Day (ICD-10-PCS; principal; 2019-05-19)
PROC: 0W9G30Z Drainage of Peritoneal Cavity with Drainage Device, Percutaneous Approach (ICD-10-PCS; 2019-05-28)
PROC: 02HV33Z Insertion of Infusion Device into Superior Vena Cava, Percutaneous Approach (ICD-10-PCS; 2019-05-30)
PROC: 0DJD8ZZ Inspection of Lower Intestinal Tract, Via Natural or Artificial Opening Endoscopic (ICD-10-PCS; 2019-06-04)
PROC: 0W9G3ZZ Drainage of Peritoneal Cavity, Percutaneous Approach (ICD-10-PCS; 2019-06-06)
PROC: 30233N1 Transfusion of Nonautologous Red Blood Cells into Peripheral Vein, Percutaneous Approach (ICD-10-PCS; 2019-06-08)
DX: I21.A1 Myocardial infarction type 2 (principal); N18.6 End stage renal disease; G92 Toxic encephalopathy; A41.9 Sepsis, unspecified organism; R65.21 Severe sepsis with septic shock; J69.0 Pneumonitis due to inhalation of food and vomit; K65.2 Spontaneous bacterial peritonitis; N17.9 Acute kidney failure, unspecified; E87.1 Hypo-osmolality and hyponatremia; I12.0 Hypertensive chronic kidney disease with stage 5 chronic kidney disease or end stage renal disease; I42.9 Cardiomyopathy, unspecified; M48.56XA Collapsed vertebra, not elsewhere classified, lumbar region, initial encounter for fracture; R18.8 Other ascites; D63.1 Anemia in chronic kidney disease; E87.5 Hyperkalemia; E11.22 Type 2 diabetes mellitus with diabetic chronic kidney disease; E87.70 Fluid overload, unspecified; F41.9 Anxiety disorder, unspecified; F32.9 Major depressive disorder, single episode, unspecified; G89.4 Chronic pain syndrome; I95.3 Hypotension of hemodialysis; K64.4 Residual hemorrhoidal skin tags; K57.90 Diverticulosis of intestine, part unspecified, without perforation or abscess without bleeding; K74.60 Unspecified cirrhosis of liver; K59.00 Constipation, unspecified; M85.88 Other specified disorders of bone density and structure, other site; M48.54XD Collapsed vertebra, not elsewhere classified, thoracic region, subsequent encounter for fracture with routine healing; M48.061 Spinal stenosis, lumbar region without neurogenic claudication; M48.07 Spinal stenosis, lumbosacral region; M51.9 Unspecified thoracic, thoracolumbar and lumbosacral intervertebral disc disorder; R19.5 Other fecal abnormalities; S62.101D Fracture of unspecified carpal bone, right wrist, subsequent encounter for fracture with routine healing; Z91.15 Patient's noncompliance with renal dialysis; Z99.2 Dependence on renal dialysis; Z22.322 Carrier or suspected carrier of Methicillin resistant Staphylococcus aureus; Z95.1 Presence of aortocoronary bypass graft; Z95.810 Presence of automatic (implantable) cardiac defibrillator; Z87.891 Personal history of nicotine dependence; Z79.82 Long term (current) use of aspirin; Z79.84 Long term (current) use of oral hypoglycemic drugs
CPT/HCPCS: 36415; 36430; 70450; 71045; 72072; 72100; 72131; 72170; 72192; 73100; 73510; 78452; 80048; 80053; 80061; 80202; 82105; 82140; 82270; 82378; 82533; 82550; 82553; 82607; 82728; 82746; 82962; 83036; 83540; 83605; 83615; 83690; 83735; 84100; 84132; 84145; 84443; 84484; 85014; 85018; 85025; 85045; 85610; 85730; 86301; 86704; 86709; 86803; 86850; 86900; 86901; 86920; 87081; 87340; 89051; 90935; 93005; 93017; 93306; 94644; 96374; 97110; 97161; 97164; 97530; A9500; A9505; J0360; J0692; J0696; J1170; J1200; J1265; J1580; J1644; J1815; J1940; J2185; J2370; J2785; J3370; J7040; J7070; P9016; P9045; P9047; Q5105